=== PATIENT | female | born 1950 | race Caucasian/White ===

== ENCOUNTER 2017-11-22 17:13 | Inpatient (IN) | payer OTHER ==
[~2017-11-22] VITALS: Ht 152.4 cm; Wt 45.4 kg
--- NOTE | ~2017-11-22 | HC ---
[facility] [place] [address] CONSULTATION Name: BIPIN RICCI Room #: 448-P ADM IN M.R.#: [id number] Admission: 11/22/17 Attend Phys: Dixon Reardon MD Discharge: Date of : 51 Report #: [id number] THIS REPORT FOR: //name// CC: Katerina Reardon DATE OF SERVICE: 11/25/2017 HISTORY OF PRESENT ILLNESS: The patient is a 67-year-old white female admitted with increased shortness of breath, noted to have acute on chronic respiratory failure, hypertension, paroxysmal atrial fibrillation, COPD exacerbation. She has accelerated hypertension. She has elevated BNP. She is being seen in rehabilitation medicine consultation. She has had a significant functional decline in her premorbid status. PAST MEDICAL HISTORY: Includes seizures, bowel obstruction, CVA, cholecystectomy, colon resection, ulcers, appendectomy, hepatitis C, hypertension, COPD, endometrial CA, biliary stents. ALLERGIES: DILANTIN WITH RED WELTS, ASPIRIN AND CODEINE. HABITS: Tobacco. Current every day smoker, 1 pack per day for 50 years. No history of alcohol abuse. SOCIAL HISTORY: Lives in a third floor apartment without an elevator, approximately 27 steps in with her male significant other. He works during the day at a local [employer] and she is thus at home by herself during the day. She did not utilize gait aids and was not on O2 premorbidly. REVIEW OF SYSTEMS: Did not offer any current complaints of chest pain, shortness of breath, abdominal discomfort. She was diagnosed with lice per chart notes and has a head covering in place. Denied any focal extremity pain complaints per se. PHYSICAL EXAMINATION: GENERAL: Small statured, thin 67-year-old white female in no obvious distress. She is pleasant. VITAL SIGNS: Her temperature is 98, pulse 75, respirations 20, blood pressure 171/90. Oriented. HEENT: Appeared to be benign. She does have the cap in place as noted above. Facies are symmetric. NEUROLOGIC: Functional range of motion of both upper extremities with strength grade 4-/5. DTRs are trace to 1. Lower extremities, no focal calf swelling, functional range of motion with strength graded at 4-/5. No distal lower extremity edema. She was min assist with sit to stand and did ambulate 60 feet min assist without an assistive device on 2 liters. She does need rest breaks. [facility] [address] [place] [address] CONSULTATION Name: BIPIN RICCI JEFF Room #: 448-P [facility] IN ..#: [id number] Admission: 11/22/17 Attend Phys: Dixon Reardon MD Discharge: Date of : 51 Report #: [id number] ASSESSMENT: A 67-year-old white female with the following problem list: 1. Gngva-gl-wtitard respiratory failure. 2. Chronic obstructive pulmonary disease exacerbation. 3. Methicillin-susceptible Staphylococcus aureus and strep pneumo per sputum culture. 4. Accelerated hypertension. 5. Elevated BNP. 6. Head lice was treated. PLAN: We are assessing her regarding an acute in-hospital inpatient rehabilitation stay. We will be glad to follow along with you regarding her rehab therapy needs. <ELECTRONICALLY SIGNED> By: Bradly Garcia MD 11/27/17 1306 1421 0009 Bradly Garcia MD /PMT
--- NOTE | ~2017-11-22 | 2DMMODE ---
[facility] [address] [place] [address] 2 D/M-MODE ECHOCARDIOGRAM Name: RADHAMESBIPIN BLOOMSBURY Room #: 448-P ADM IN M.R.#: [id number] Admission: 11/22/17 Attend Phys: Dixon Reardon Discharge: Date of : 52 Date of Service: 11/23/17 1054 Report #: [id number] THIS REPORT FOR: //name// APPROVED REPORT Study performed: 11/23/2017 10:13:22 EXAM: Comprehensive 2D, Doppler, and color-flow Echocardiogram Patient Location: Bedside Room #: [facility] Status: routine BSA: 1.39 HR: 103 bpm BP: 159/69 mmHg Other Information Study Quality: Good Indications COPD Dyspnea Hypertension/HDD 2D Dimensions RVDd: 34.48 mm LVEF(%): 55.12 (>50%) IVSd: 9.02 (7-11mm) LVOT Diam: 21.41 (18-24mm) LVDd: 48.98 mm PWd: 9.83 (7-11mm) Ascending Ao: 24.22 (22-36mm) LVDs: 34.91 (25-40mm) Aortic Root: 29.38 mm IVC: 21.00 mm Yeung's LVEF: 55.12 % Volumes Left Atrial Volume (Systole) Single Plane 4CH: 36.89 mL Single Plane 2CH: 58.68 mL LA ESV Index: 38.00 mL/m2 Pulmonary Valve PV Peak Willie.: 1.19 m/s PV Peak Gr.: 5.68 mmHg Tricuspid Valve TR Peak Willie.: 2.71 m/s TR Peak Gr.: 29.31 mmHg PA Pressure: 44.[address] [facility] [address] [place] [address] 2 D/M-MODE ECHOCARDIOGRAM Name: BIPIN RICCI [place]LOOM[place]URY Room #: 448-P ADM IN M.R.#: [id number] Admission: 11/22/17 Attend Phys: Dixon Reardon Discharge: Date of : 52 Date of Service: 11/23/17 1054 Report #: [id number] Left Ventricle The left ventricle is normal size. There is normal left ventricular wall thickness. The left ventricular systolic function is normal. The left ventricular ejection fraction is within the normal range. LVEF is 50-55%. Grade I - abnormal relaxation pattern. Right Ventricle The right ventricle is normal size. The right ventricular systolic function is normal. Atria Left atrium is dilated. The right atrium size is normal. Aortic Valve Aortic valve is calcified, trileaflet. No aortic regurgitation is present. There is no aortic valvular stenosis. Mitral Valve The mitral valve is normal in structure. Trace to mild mitral regurgitation. No evidence of mitral valve stenosis. Tricuspid Valve The tricuspid valve is normal in structure. There is mild tricuspid regurgitation. Estimated PAP 40 mmHg. There is moderate pulmonary hypertension. Pulmonic Valve The pulmonary valve is normal in structure. There is no pulmonic valvular regurgitation. Great Vessels The aortic root is normal in size. The inferior vena cava is dilated with no inspiratory collapse. Pericardium There is no pericardial effusion. <Conclusion> The left ventricular systolic function is normal. LVEF is 50-55%. Grade I diastolic dysfunction Aortic valve is calcified, trileaflet. No aortic regurgitation, no stenosis The mitral valve is normal in structure. Trace to mild mitral regurgitation. There is mild tricuspid regurgitation. Estimated pulmonary artery [facility] [address] [place] [address] 2 D/M-MODE ECHOCARDIOGRAM Name: BIPIN RICCI JEFF Room #: 448-P [facility] IN .R.#: [id number] Admission: 11/22/17 Attend Phys: Dixon Reardon Discharge: Date of : 52 Date of Service: 11/23/17 1054 Report #: [id number] pressure of 40 mmHg. There is no pericardial effusion. <ELECTRONICALLY SIGNED> By: Armando Falcon MD, [facility] 11/23/17 1054 1054 1054 Armando Falcon MD, FACC /INF
--- NOTE | ~2017-11-22 | EKG ---
[address] [address] ELECTROCARDIOGRAM REPORT Name: BIPIN RICCI Room #: 448-P ADM IN M.R.#: [id number] Admission: 11/22/17 Attend Phys: Reginald Segura MD Discharge: Date of : 51 Report #: [id number] THIS REPORT FOR: //name// [facility] Test Date: 2017-11-22 Test Time: 17:38:52 Pat Name: BIPIN RICCI Department: Room: [facility] Gender: F Patient Coordinator: ADRIEL : 1950 Requested By: Dara Viveros Order Number: [id number] MD: Torsten Carlos Measurements Intervals [place] Rate: 114 P: 38 OK: 109 QRS: 1 QRSD: 77 T: 43 QT: 348 QTc: 480 Interpretive Statements Sinus tachycardia Ventricular premature complex Borderline repolarization abnormality Compared to ECG 07/21/2012 21:53:56 Ventricular premature complex(es) now present Sinus rhythm no longer present Electronically Signed On 11-23-2017 8:08:19 SEAPORT PLANNING MANAGER by Torsten Carlos [email or web address] <ELECTRONICALLY SIGNED> By: Torsten Carlos MD 11/23/17 0808 1738 1738 Torsten Carlos MD /EPI
[~2017-11-22 17:13] MED LIST: ADVAIR 250-501 EACH IH; ALBUTEROL INHAL17 GM IH; AMBIEN 10 MG TA10 MG PO; ASPIR 8181 MG; ATIVAN1 MG PO; BENAZEPRIL HCL20 MG; BENAZEPRIL HCL20 MG PO; CIPROFLOXACIN500 M1 PO; CLOPIDOGREL PO; CLOPIDOGREL75 MG; COLACE100 MG PO; DARVON65 MG PO; DIPHENHYDRAMINE25 M3 PO; DOXYCYCLINE 10100 MG PO; FLEET ENEMA118 ML RC; GABAPENTIN600 MG PO; HYDROCHLOROTH12.5 MG PO; HYDROXYZINE HCL25 M1; LEXAPRO20 MG PO; LOTENSIN20 MG PO; LYRICA 50 MG50 MG; LYRICA 50 MG50 MG PO; MEDROL DOSPAK21 TAB PO; MIRALAX255 GM PO; NAPROSYN500 MG PO; NORCO 5-325 TA1 EACH PO; OMEPRAZOLE 20 M20 M1; OMEPRAZOLE20 M2 PO; OMEPRAZOLE20 MG PO; ORPHENADRINE C100 M2 PO; PHENERGAN 25 MG25 M1; PHENERGAN 25 MG25 M1 PO; PHENERGAN25 MG RE; PLAVIX 75 MG TA75 MG PO; PRILOSEC 20 MG20 MG PO; REGLAN 10 MG TA10 MG PO; TAMSULOSIN HCL0.4 M1 PO; TEGRETOL XR200 MG PO; TESSALON PERLE100 MG PO; TRAMADOL 50 MG50 MG PO; TYLENOL EXTRA500 MG PO; ULTRAM 50MG TAB50 MG PO; VITAMIN D 5050000 I1; ZOFRAN ODT4 MG PO; ZOLOFT100 MG PO; ZONEGRAN100 MG; ZONEGRAN100 MG PO
[2017-11-22 17:16] VITALS: BP 204/120
[2017-11-22 17:58] LABS: BE(vivo) 0.1 mmol/L (-2 to +3); HCO3 24.6 mmol/L (22.0-26.0); PCO2 39.4 mmHg (35.0-45.0); PO2 62.1 mmHg (80.0-100.0); pH 7.413 (7.360-7.450); sO2 92.1 % (92.0-98.0)
[2017-11-22 18:17] LABS: ABSOLUTE NEUTROPHILS 9.3 thou/uL (1.4-8.2); BASOPHILS 0.3 % (0.0-2.0); HEMATOCRIT 36.1 % (37.0-47.0); HEMOGLOBIN 12.5 gm/dL (12.0-15.0); LYMPHOCYTES 6.5 % (24.0-44.0); MCH 34.1 pg (26.0-34.0); MCHC 34.5 g/dL (28.0-37.0); MCV 98.9 fL (80.0-100.0); MONOCYTES 8.3 % (1.0-8.0); PLATELET COUNT 229 thou/uL (150-400); POLYS 84.9 % (36.0-66.0); RBC 3.65 mil/uL (4.20-5.00); RDW 13.6 % (10.5-14.5); WBC 10.9 thou/uL (4.0-11.0)
[2017-11-22 18:26] LABS: CALCIUM 9.4 mg/dL (8.5-10.1); CREATININE 1.3 mg/dL (0.6-1.0); POTASSIUM 3.1 mmol/L (3.5-5.1)
[2017-11-22 18:34] LABS: ALBUMIN 3.9 g/dL (3.4-5.0); TOTAL BILIRUBIN 0.3 mg/dL (<0.1-1.0); TROPONIN-I 0.05 ng/mL (<0.06)
[2017-11-22 22:57] VITALS: BP 194/103
[2017-11-22 23:11] VITALS: BP 194/103
[2017-11-23 00:06] VITALS: BP 149/99
[2017-11-23 04:11] VITALS: BP 150/82
[2017-11-23 05:25] LABS: CALCIUM 8.1 mg/dL (8.5-10.1); POTASSIUM 3.3 mmol/L (3.5-5.1)
[2017-11-23 08:10] VITALS: BP 159/69
[2017-11-23 16:05] VITALS: BP 174/85
[2017-11-23 20:37] VITALS: BP 153/86
[2017-11-24 04:50] VITALS: BP 165/86
[2017-11-24 06:00] LABS: CALCIUM 8.7 mg/dL (8.5-10.1); CREATININE 0.9 mg/dL (0.6-1.0); POTASSIUM 4.4 mmol/L (3.5-5.1)
[2017-11-24 07:45] LABS: ABSOLUTE NEUTROPHILS 11.5 thou/uL (1.4-8.2); BASOPHILS 0.1 % (0.0-2.0); HEMATOCRIT 29.9 % (37.0-47.0); LYMPHOCYTES 3.4 % (24.0-44.0); MCH 34.4 pg (26.0-34.0); MCHC 34.2 g/dL (28.0-37.0); MCV 100.5 fL (80.0-100.0); PLATELET COUNT 170 thou/uL (150-400); POLYS 92.5 % (36.0-66.0); RBC 2.97 mil/uL (4.20-5.00); RDW 14.2 % (10.5-14.5); WBC 12.4 thou/uL (4.0-11.0)
[2017-11-24 07:47] LABS: HEMOGLOBIN 10.2 gm/dL (12.0-15.0)
[2017-11-24 09:20] VITALS: BP 166/85
[2017-11-24 19:33] VITALS: BP 180/91
[2017-11-24 23:52] VITALS: BP 166/83
[2017-11-25 03:43] VITALS: BP 187/90
[2017-11-25 08:50] VITALS: BP 171/90
[2017-11-25 19:32] VITALS: BP 187/87
[2017-11-26 03:10] VITALS: BP 191/98
[2017-11-26 06:17] LABS: HEMATOCRIT 33.1 % (37.0-47.0); HEMOGLOBIN 11.2 gm/dL (12.0-15.0); MCH 33.6 pg (26.0-34.0); MCHC 33.7 g/dL (28.0-37.0); MCV 99.5 fL (80.0-100.0); PLATELET COUNT 196 thou/uL (150-400); RBC 3.32 mil/uL (4.20-5.00); RDW 13.7 % (10.5-14.5); WBC 12.1 thou/uL (4.0-11.0)
[2017-11-26 06:28] LABS: CALCIUM 8.7 mg/dL (8.5-10.1); CREATININE 0.8 mg/dL (0.6-1.0); POTASSIUM 3.2 mmol/L (3.5-5.1)
[2017-11-26 07:49] VITALS: BP 181/79
[2017-11-26 07:49] LABS: ABSOLUTE NEUTROPHILS 10.5 thou/uL (1.4-8.2)
[2017-11-26 17:10] VITALS: BP 166/96
[2017-11-26 19:43] VITALS: BP 182/79
[2017-11-26 22:12] LABS: ADENOVIRUS Negative (Negative); INFLUENZA A Negative (Negative); INFLUENZA B Negative (Negative); METAPNEUMOVIRUS Positive (Negative); PARAINFLUENZA 1 Negative (Negative); PARAINFLUENZA 2 Negative (Negative); PARAINFLUENZA 3 Negative (Negative); RHINOVIRUS Negative (Negative); RSV A Negative (Negative); RSV B Negative (Negative)
[2017-11-27 02:49] VITALS: BP 184/111
[2017-11-27 06:46] LABS: HEMATOCRIT 30.9 % (37.0-47.0); HEMOGLOBIN 10.4 gm/dL (12.0-15.0); MCH 33.8 pg (26.0-34.0); MCHC 33.7 g/dL (28.0-37.0); MCV 100.2 fL (80.0-100.0); RBC 3.09 mil/uL (4.20-5.00); RDW 13.6 % (10.5-14.5); WBC 10.7 thou/uL (4.0-11.0)
[2017-11-27 06:59] LABS: CALCIUM 8.3 mg/dL (8.5-10.1); CREATININE 0.9 mg/dL (0.6-1.0); MAGNESIUM 1.9 mg/dL (1.8-2.4); POTASSIUM 3.4 mmol/L (3.5-5.1)
[2017-11-27 08:00] VITALS: BP 178/88
[2017-11-27 11:25] VITALS: BP 159/85
[2017-11-27] MEDS ORDERED: CEFUROXIME500 MG PO (12:36)
[2017-11-27] MEDS ORDERED: DUONEB 2.5-0.5 M3 ML INH (12:36)
[2017-11-27] MEDS ORDERED: LISINOPRIL10 MG PO (12:36)
[2017-11-27] MEDS ORDERED: ENOXAPARIN40 MG/0.1 SUBQ (12:36)
[2017-11-27] MEDS ORDERED: PREDNISONE 10 M10 MG PO (12:36)
[2017-11-27] MEDS ORDERED: MUCINEX600 MG PO (12:36)
[2017-11-27] MEDS ORDERED: AMLODIPINE BESY10 MG PO (12:36)
[2017-11-27] MEDS ORDERED: HYDROCODON-ACE1 EAC7 PO (12:36)
[2017-11-27] MEDS ORDERED: LEVAQUIN 500 M500 M2 PO (12:40)
[2017-11-27 16:00] VITALS: BP 150/78
[2017-11-27 19:09] VITALS: BP 153/79
[2017-12-01 01:08] LABS: ADENOVIRUS Negative (Negative); INFLUENZA A Negative (Negative); INFLUENZA B Negative (Negative); METAPNEUMOVIRUS Negative (Negative); PARAINFLUENZA 1 Negative (Negative); PARAINFLUENZA 2 Negative (Negative); PARAINFLUENZA 3 Negative (Negative); RHINOVIRUS Negative (Negative); RSV A Negative (Negative); RSV B Negative (Negative)
== END 2017-11-27 21:30 | DRG 871 ==
LOC: ER 17:13 → EROBS 19:25 → 4S 19:25
PROVIDERS: Internal Medicine; Internal Medicine Endocrinology, Diabetes & Metabolism; Internal Medicine Pulmonary Disease; Nurse Practitioner Acute Care; Physician Assistant
DX: A41.9 Sepsis, unspecified organism (principal); J96.20 Acute and chronic respiratory failure, unspecified whether with hypoxia or hypercapnia; E43 Unspecified severe protein-calorie malnutrition; J44.0 Chronic obstructive pulmonary disease with (acute) lower respiratory infection; Z68.1 Body mass index [BMI] 19.9 or less, adult; J44.1 Chronic obstructive pulmonary disease with (acute) exacerbation; J98.11 Atelectasis; I10 Essential (primary) hypertension; F17.210 Nicotine dependence, cigarettes, uncomplicated; E86.0 Dehydration; I27.20 Pulmonary hypertension, unspecified; I48.0 Paroxysmal atrial fibrillation; E87.6 Hypokalemia; B85.0 Pediculosis due to Pediculus humanus capitis; Z71.6 Tobacco abuse counseling; Z23 Encounter for immunization; Z88.5 Allergy status to narcotic agent; Z88.8 Allergy status to other drugs, medicaments and biological substances; Z88.6 Allergy status to analgesic agent; Z90.49 Acquired absence of other specified parts of digestive tract; Z86.73 Personal history of transient ischemic attack (TIA), and cerebral infarction without residual deficits; Z79.899 Other long term (current) drug therapy; Z85.89 Personal history of malignant neoplasm of other organs and systems; Z82.5 Family history of asthma and other chronic lower respiratory diseases
CPT/HCPCS: 10100

== ENCOUNTER 2017-11-26 08:20 | Inpatient (IN) | payer OTHER ==
[~2017-11-26] VITALS: Ht 152.4 cm; Wt 41.3 kg
--- NOTE | ~2017-11-26 | PLAN ---
[facility] [place] [address] REHAB UNIT PLAN OF CARE Name: BIPIN RICCI Room #: 501-A ADM IN M.R.#: [id number] Admission: 11/27/17 Attend Phys: Bradly Garcia MD Discharge: Date of : 51 Report #: [id number] THIS REPORT FOR: //name// CC: Katerina Garcia DATE OF SERVICE: 11/30/2017 PROGRESS NOTE/OVERALL PLAN OF CARE SUBJECTIVE: The patient was seen back today in followup. She is in no distress. Last recorded temperature 36.8, pulse 87, respirations 19, blood pressure 153/87. Transfers are min assist with gait min assist 250 feet without a device. In occupational therapy, lower body dressing is supervision. She is on 2 liters nasal cannula. ASSESSMENT: 1. Acute on chronic respiratory failure. 2. Chronic obstructive pulmonary disease exacerbation. 3. Methicillin-susceptible Staphylococcus aureus and strep pneumo per sputum culture. 4. Accelerated hypertension. 5. Elevated BNP. 6. Head lice which was treated. 7. Continued tobacco usage. PLAN: The overall plan of care is based on the preadmission screen, post-admission physician evaluation and information garnered from therapy assessments. 1. Estimated length of stay is probably at least 10-14 days pending progress. 2. Medical prognosis is reasonably good. 3. Anticipated interventions includes the interdisciplinary acute inpatient rehabilitation program with PT and OT, rehab nursing assisting regarding medication management, skin care prophylaxis, bowel and bladder issues and nursing education. We will have the rest of the interdisciplinary rehab team involved as well as the apartment leasing consultant physicians. 4. Anticipated functional outcomes would be for the patient to hopefully become modified independent at least at the walker level as well as to ideally wean off her oxygen, so we can get her back to the home setting. 5. Discharge destination would be back home where she lives in a third floor apartment without steps. She will need to be able to go up and down a lot of steps prior to discharge. [address] [address] REHAB UNIT PLAN OF CARE Name: BIPIN RICCI [place] Room #: 501-A [facility] IN ..#: [id number] Admission: 11/27/17 Attend Phys: Bradly Garcia MD Discharge: Date of : 51 Report #: [id number] 6. Expected therapy by discipline includes PT, OT 1-1/2 hours per day each five days a week throughout the duration of the acute inpatient rehabilitation stay. <ELECTRONICALLY SIGNED> By: Bradly Garcia MD 12/01/17 1109 0837 1617 Bradly Garcia MD /BRANDY
--- NOTE | ~2017-11-26 | HC ---
[facility] [address] [address] [address] CONSULTATION Name: BIPIN RICCI Room #: 501-A [facility] IN M.R.#: [id number] Admission: 11/27/17 Attend Phys: Bradly Garcia MD Discharge: Date of : 51 Report #: [id number] THIS REPORT FOR: //name// CC: Katerina Garcia DATE OF SERVICE: 11/29/2017 ATTENDING PHYSICIAN: Bradly Garcia MD. BUS AND TROLLEY DISPATCHER: Stew Boyd, PhD. CLINICAL PRESENTATION: The patient is a 67-year-old female admitted to [facility] rehabilitation unit for a comprehensive inpatient rehabilitation program to improve functional mobility and activities of daily living and self-care secondary to an acute on chronic respiratory failure. Her diagnoses include COPD, methicillin-resistant Staphylococcus, accelerated hypertension, elevated BNP, head lice which has been treated and continued tobacco use. The patient is reported to have been admitted with shortness of breath from her apartment. She describes having had a significant functional decline. It should be noted that the patient reported during my interview that she did not know that she had COPD or that had never been diagnosed. She lacks awareness of current medical condition. Prior to this most recent admission, she was living with her boyfriend of 25 years. The patient has 3 children. One child lives within the [place] area. 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 She indicates that prior to this recent hospitalization, she was independent with all instrumental activities of daily living. TECHNIQUES UTILIZED: Clinical interview, review of medical records, staff consultation and behavioral observation, mini mental status exam 2 standard version, calibrated ideational fluency assessment (letter and category fluency) and clock drawing. EXAMINATION FINDINGS: The patient was alert and cooperative with the assessment. She accurately described events surrounding her admission. There is no evidence of aphasia. Her thoughts are logical and goal oriented. She does not report auditory or visual hallucinations. The patient reports symptoms to include subjective anxiety. She indicates a longstanding difficulty with sleep and energy level is more fatigue. Her anxiety is higher in regard to fears of suffocation. She does not report difficulties with memory, word finding or appetite; although, the patient does look thin and underweight. [facility] [address] [place] [address] CONSULTATION Name: BIPIN RICCI JEFF Room #: 501-A [facility] IN .R.#: [id number] Admission: 11/27/17 Attend Phys: Bradly Garcia MD Discharge: Date of : 51 Report #: [id number] Her performance on the MMSE 2 brief version is within normal limits with a raw score of 14 of 16. She was 3 of 3 for initial registration, 4 of 5 for orientation to time, 5 of [address] and 2 of 3 for immediate recall of 3 items after a brief time delay and distraction. Her performance on the MMSE 2 standard version was within normal limits with a raw score of 28 of 30. Her performance in letter fluency was average and within normal limits with a raw score of 29 and a T score of 52. Category fluency was in the mild to moderate range of impairment with a T score of 33, which is at the fourth percentile. Overall, verbal fluency was in the average range with a raw score of 58 and a T score of 45, which is at the 31st percentile. Clock drawing was slightly impaired with difficulty in conceptualization of hand placement. The patient is alert and oriented. Subtle deficits are suggested in aspects of verbal fluency and in her performance on clock drawing. This type of presentation suggests a mild cognitive disorder with difficulty primarily in high level executive functioning. DIAGNOSTIC IMPRESSION: Mild neurocognitive disorder, unspecified, without behavior disorder. Adjustment disorder with anxious mood. RECOMMENDATIONS: Continued use of relaxation techniques to assist in the management of anxiety. Reframing her hospitalization as a meaningful method to manage self-destructive behavior i.e., smoking. She does report a desire to discontinue tobacco at this time. Verbal praise and complements about participation in therapies and improving endurance will also be helpful. Thank you very much for allowing me to provide the consultation on this patient. <ELECTRONICALLY SIGNED> By: Stew Boyd, PhD 11/30/17 1855 1508 37 Stew Boyd, PhD /nt
--- NOTE | ~2017-11-26 | H ---
[facility] [place] [address] HISTORY AND PHYSICAL Name: BIPIN RICCI Room #: 501-A ADM IN M.R.#: [id number] Admission: 11/27/17 Attend Phys: Bradly Garcia MD Discharge: Date of : 51 Report #: [id number] THIS REPORT FOR: //name// CC: Katerina Garcia DATE OF SERVICE: 11/28/2017 HISTORY AND PHYSICAL/POST ADMISSION PHYSICIAN EVALUATION HISTORY OF PRESENT ILLNESS: The patient is a 67-year-old white female who was originally admitted to [facility] with increased shortness of breath, was noted to have acute on chronic respiratory failure, hypertension, paroxysmal atrial fibrillation, and COPD exacerbation. She was noted to have accelerated hypertension. She had an elevated BNP. She was noted to have had a significant functional decline from her premorbid status. She was admitted for acute in-hospital inpatient rehabilitation. PAST MEDICAL HISTORY: Seizures, bowel obstruction, CVA, cholecystectomy, colon resection, ulcers, appendectomy, hepatitis C, hypertension, COPD, endometrial CA, and biliary stents. ALLERGIES: DILANTIN WITH RED WELTS, ASPIRIN, AND CODEINE. HABITS: Tobacco. Current every day smoker, 1 pack per day for 50 years. No history of alcohol abuse. SOCIAL HISTORY: Lives in a third floor apartment without an elevator approximately 27 steps in with her male significant other. He works during the day at a local [employer] and she thus at home by herself during the day. She did not utilize gait aids and was not on O2 premorbidly. REVIEW OF SYSTEMS: No current complaints of chest pain, shortness of breath, or abdominal discomfort. She was diagnosed with lice per chart notes and had a head covering in place, when I saw her prior to admission. She denied any focal extremity pain complaints. PHYSICAL EXAMINATION: GENERAL: The patient was seen earlier, was somewhat groggy, but pleasant, small statured, thin 67-year-old white female in no obvious distress. VITAL SIGNS: Temperature 36.5, pulse 103, respirations 18, blood pressure 166/96. HEENT: Appeared to be benign. CHEST: Sounded clear to auscultation. CARDIOVASCULAR: Regular rate and rhythm. ABDOMEN: Bowel sounds positive, nontender. [address] [address] HISTORY AND PHYSICAL Name: BIPIN RICCI [place] Room #: [address] [place] [address] IN ..#: [id number] Admission: 11/27/17 Attend Phys: Bradly Garcia MD Discharge: Date of : 51 Report #: [id number] NEUROLOGIC: She is on nasal prong O2, 2 liters. GENITOURINARY AND RECTAL: Deferred. She does get short of breath with fairly limited activities. EXTREMITIES: She has functional range of motion of both upper extremities with strength grade 4-/5. DTRs are trace to 1. Lower extremities, no focal calf swelling, functional range of motion with strength grade 4-/5. No distal lower extremity edema. She was min assist with sit to stand and has been ambulating a short distance with min assist without an assisted device continuing on her oxygen. ASSESSMENT: A 67-year-old white female with the following problems: 1. Acute on chronic respiratory failure. 2. Chronic obstructive pulmonary disease exacerbation. 3. Methicillin-susceptible Staphylococcus aureus and strep pneumo per sputum culture. 4. Accelerated hypertension. 5. Elevated BNP. 6. Head lice, which was treated. 7. Continued tobacco usage. PLAN: The patient is admitted for acute in-hospital inpatient rehabilitation. From a postadmission physician evaluation perspective, there are no relevant changes since the preadmission screening. Please see the above review of prior and current medical and functional conditions and comorbidities. Please see the patient's previous and current functional status. As far as risk of complications, the patient has multiple medical comorbidities as noted above. Initial plan of care involves the interdisciplinary acute inpatient rehabilitation program with the goal of maximizing the patient's functional independence, so that she can hopefully return back to her prior living situation. Measurable functional goals would be for her to become modified independent with transfers, mobility and ADLs, so that she can return back to the home setting. Prognosis is reasonably good with estimated length of stay probably at least 10-14 days pending progress. Potential barriers would include her multiple medical comorbidities and decreased functional status. The patient meets diagnostic criteria for an acute in-hospital inpatient rehabilitation stay. She meets medical necessity criteria and we will have the urban design consultant physicians continue to follow while she is on the rehab cowan. She does have the tolerance for therapies and has appropriate discharge goals back to the home setting. <ELECTRONICALLY SIGNED> By: Bradly Garcia MD 12/01/17 1109 0711 0734 Bradly Garcia MD /[facility]
[2017-11-27] MEDS ORDERED: HYDROCODON-ACE1 EAC7 PO (12:36)
[2017-11-27] MEDS ORDERED: AMLODIPINE BESY10 MG PO (12:36)
[2017-11-27] MEDS ORDERED: PREDNISONE 10 M10 MG PO (12:36)
[2017-11-27] MEDS ORDERED: CEFUROXIME500 MG PO (12:36)
[2017-11-27] MEDS ORDERED: MUCINEX600 MG PO (12:36)
[2017-11-27] MEDS ORDERED: DUONEB 2.5-0.5 M3 ML INH (12:36)
[2017-11-27] MEDS ORDERED: ENOXAPARIN40 MG/0.1 SUBQ (12:36)
[2017-11-27] MEDS ORDERED: LISINOPRIL10 MG PO (12:36)
[2017-11-27] MEDS ORDERED: LEVAQUIN 500 M500 M2 PO (12:40)
[2017-11-27 21:43] VITALS: BP 166/96
[2017-11-28 05:36] VITALS: BP 164/81
[2017-11-28 06:26] LABS: HEMATOCRIT 30.8 % (37.0-47.0); HEMOGLOBIN 10.2 gm/dL (12.0-15.0); MCH 33.2 pg (26.0-34.0); MCHC 33.2 g/dL (28.0-37.0); RBC 3.08 mil/uL (4.20-5.00); RDW 13.7 % (10.5-14.5); WBC 11.8 thou/uL (4.0-11.0)
[2017-11-28 06:31] LABS: CALCIUM 8.3 mg/dL (8.5-10.1); CREATININE 1.2 mg/dL (0.6-1.0); POTASSIUM 3.8 mmol/L (3.5-5.1)
[2017-11-28 06:56] VITALS: BP 160/96
[2017-11-28 21:01] VITALS: BP 148/95
[2017-11-29 05:17] LABS: HEMATOCRIT 29.3 % (37.0-47.0); MCH 34.1 pg (26.0-34.0); MCHC 34.3 g/dL (28.0-37.0); MCV 99.3 fL (80.0-100.0); RBC 2.95 mil/uL (4.20-5.00); RDW 13.5 % (10.5-14.5); WBC 10.1 thou/uL (4.0-11.0)
[2017-11-29 05:36] LABS: ALBUMIN 2.5 g/dL (3.4-5.0); POTASSIUM 3.6 mmol/L (3.5-5.1); TOTAL BILIRUBIN 0.2 mg/dL (<0.1-1.0); TOTAL PROTEIN 5.3 g/dL (6.4-8.2)
[2017-11-29 08:00] VITALS: BP 149/78
[2017-11-29 19:36] VITALS: BP 153/87
[2017-11-30 06:54] LABS: ALBUMIN 2.6 g/dL (3.4-5.0); CALCIUM 8.1 mg/dL (8.5-10.1); CREATININE 0.9 mg/dL (0.6-1.0); POTASSIUM 3.8 mmol/L (3.5-5.1); TOTAL BILIRUBIN 0.2 mg/dL (<0.1-1.0); TOTAL PROTEIN 5.7 g/dL (6.4-8.2)
[2017-11-30 08:00] VITALS: BP 177/90
[2017-11-30 20:18] VITALS: BP 144/78
[2017-12-01 06:47] VITALS: BP 171/95
[2017-12-01 19:54] VITALS: BP 127/72
[2017-12-02 06:36] VITALS: BP 171/84
[2017-12-02 20:06] VITALS: BP 121/49
[2017-12-03 08:30] VITALS: BP 151/82
[2017-12-03] MEDS ORDERED: VENTOLIN HFA 1818 GM INH (12:20)
[2017-12-03] MEDS ORDERED: LISINOPRIL10 MG PO (12:20)
[2017-12-03] MEDS ORDERED: ZANAFLEX2 MG PO (12:20)
[2017-12-03] MEDS ORDERED: AMLODIPINE BESY10 MG PO (12:20)
[2017-12-03] MEDS ORDERED: PEPCID20 MG PO (12:20)
[2017-12-03] MEDS ORDERED: MUCINEX600 MG PO (12:20)
[2017-12-03] MEDS ORDERED: PREDNISONE 10 M10 MG PO (12:20)
[2017-12-03 20:06] VITALS: BP 129/61
[2017-12-04 07:15] VITALS: BP 134/61
[2017-12-04 09:55] VITALS: BP 134/61
== END 2017-12-04 15:30 | disposition home health service (06) | DRG 189 ==
LOC: ENTRNSPT 12-04 15:14 → EDTRNSPTSTS 12-04 15:16
PROVIDERS: Hospitalist; Physical Medicine & Rehabilitation
DX: J96.20 Acute and chronic respiratory failure, unspecified whether with hypoxia or hypercapnia (principal); J44.1 Chronic obstructive pulmonary disease with (acute) exacerbation; E44.0 Moderate protein-calorie malnutrition; Z68.1 Body mass index [BMI] 19.9 or less, adult; I10 Essential (primary) hypertension; I48.0 Paroxysmal atrial fibrillation; F17.210 Nicotine dependence, cigarettes, uncomplicated; B85.0 Pediculosis due to Pediculus humanus capitis; F43.22 Adjustment disorder with anxiety; G31.84 Mild cognitive impairment of uncertain or unknown etiology; I48.91 Unspecified atrial fibrillation; D64.9 Anemia, unspecified; R53.81 Other malaise; D72.829 Elevated white blood cell count, unspecified; Z90.49 Acquired absence of other specified parts of digestive tract; Z86.73 Personal history of transient ischemic attack (TIA), and cerebral infarction without residual deficits; Z86.19 Personal history of other infectious and parasitic diseases; Z85.89 Personal history of malignant neoplasm of other organs and systems; Z88.6 Allergy status to analgesic agent; Z88.8 Allergy status to other drugs, medicaments and biological substances; Z79.899 Other long term (current) drug therapy
CPT/HCPCS: 10112

== ENCOUNTER 2017-12-17 14:13 | Inpatient (IN) | payer OTHER ==
[~2017-12-17] VITALS: Ht 152.4 cm; Wt 40.5 kg
--- NOTE | ~2017-12-17 | D ---
[facility] [place] [address] DISCHARGE SUMMARY Name: BIPIN RICCI Room #: 412-P [facility] IN M.R.#: [id number] Admission: 12/17/17 Attend Phys: Gurinder Bolaños Discharge: 12/30/17 Date of : 51 Report #: [id number] THIS REPORT FOR: //name// CC: Katerina Bolaños DATE OF SERVICE: 12/30/2017 HISTORY OF PRESENT ILLNESS: The patient is a 67-year-old female who came to the hospital with abdominal pain. Please refer to admission H and P for details. In brief, the patient had abdominal pain a few days before she came in. HOSPITALIZATION COURSE: The patient was hospitalized for severe colitis. Later, stool study was consistent with Clostridium difficile. Abdominal CT showed pancolitis. The patient was initially treated with Flagyl. However, given severity of the disease, the patient was started on oral vancomycin. Infectious disease specialist was consulted. Vancomycin dose was increased to 500 mg p.o. t.i.d. The patient's oral intake was significantly diminished. GI also saw the patient. The patient was managed conservatively. She has very slow improvement. Few days later, the patient's symptoms started to improve. White count started to decline from 25,000, with currently 12.9 thousand. Abdominal pain improved. CT of the abdomen was repeated, that showed improvement of the colitis. While the patient had diminished p.o. intake, she was treated with TPN. Later TPN was discontinued. Today, the patient's condition is stable. Her abdominal pain almost subsided. Her food intake is well established. She is seen and evaluated by physical therapy. Due to prolonged hospital stay and debility, transferring the patient to detention home is recommended for further rehab. DISCHARGE DIAGNOSES: 1. Severe Clostridium difficile colitis, involving entire colon. Clinically much better. Details as above. The patient will be continued on oral vancomycin 250 mg q.i.d. at least for 4 weeks, with close followup in infectious disease clinic in about 10 days. 2. Debility. 3. Moderate protein-calorie malnutrition. 4. Recent pneumonia, resolved. 5. Hypertension. 6. History of chronic obstructive pulmonary disease. 7. History of seizure, currently not on medications. 8. History of hepatitis C. [address] [address] DISCHARGE SUMMARY Name: BIPIN RICCI [place] Room #: 412-P [facility] IN M.R.#: [id number] Admission: 12/17/17 Attend Phys: Gurinder Bolaños Discharge: 12/30/17 Date of : 52 Report #: [id number] 9. History of endometrial cancer. DISCHARGE MEDICATIONS: Please refer to the medication reconciliation list. FOLLOWUP PLAN: 1. Follow up in infectious disease clinic in 10 days. 2. Follow up with the primary care physician in 1 week. DISPOSITION: The patient is transferred to the detention facility. I spent greater than 30 minutes to coordinate the patient's discharge from the hospital. <ELECTRONICALLY SIGNED> By: Dixon Reardon MD 12/31/17 1604 0930 0955 Dixon Reardon MD /nt
[~2017-12-17 14:13] MED LIST changes: +AMLODIPINE BESY10 MG PO; +CEFUROXIME500 MG PO; +DUONEB 2.5-0.5 M3 ML INH; +ENOXAPARIN40 MG/0.1 SUBQ; +HYDROCODON-ACE1 EAC7 PO; +LEVAQUIN 500 M500 M2 PO; +LISINOPRIL10 MG PO; +MUCINEX600 MG PO; +PEPCID20 MG PO; +PREDNISONE 10 M10 MG PO; +VENTOLIN HFA 1818 GM INH; +ZANAFLEX2 MG PO
[2017-12-17 14:18] VITALS: BP 120/60
[2017-12-17 14:44] LABS: URINE BILIRUBIN NEGATIVE (Negative); URINE BLOOD TRACE (Negative); URINE CLARITY CLEAR; URINE COLOR YELLOW; URINE GLUCOSE-RANDOM* NEGATIVE (Negative); URINE KETONES NEGATIVE (Negative); URINE LEUKOCYTES NEGATIVE (Negative); URINE NITRITE NEGATIVE (Negative); URINE PROTEIN (DIPSTICK) 1+ (Negative); URINE UROBILINOGEN 0.2 E.U./dl (0.2-1.0)
[2017-12-17 14:52] LABS: SQUAMOUS 0-3 Few /LPF (0-3); URINE RBC 0-2 Rare /HPF (0-2); URINE WBC 6-15 Few /HPF (0-5)
[2017-12-17 14:53] LABS: BACTERIA None Seen /HPF (None Seen); CRYSTALS None Seen /LPF (None Seen); HYALINE CASTS 0-3 Few /LPF (None Seen); MUCUS 0-3 Light strn/LPF (None Seen); WBC CLUMPS Few (None Seen)
[2017-12-17 15:16] LABS: HEMATOCRIT 30.2 % (37.0-47.0); HEMOGLOBIN 10.1 gm/dL (12.0-15.0); MCH 33.8 pg (26.0-34.0); MCHC 33.6 g/dL (28.0-37.0); MCV 100.7 fL (80.0-100.0); PLATELET COUNT 461 thou/uL (150-400); WBC 22.7 thou/uL (4.0-11.0)
[2017-12-17 15:32] LABS: CALCIUM 8.8 mg/dL (8.5-10.1); CREATININE 1.1 mg/dL (0.6-1.0); PROTIME 10.3 Seconds (9.3-11.4)
[2017-12-17 15:37] LABS: ALBUMIN 2.6 g/dL (3.4-5.0); TOTAL BILIRUBIN 0.1 mg/dL (<0.1-1.0); TOTAL PROTEIN 6.5 g/dL (6.4-8.2)
[2017-12-17 15:40] LABS: POTASSIUM 2.9 mmol/L (3.5-5.1)
[2017-12-17 15:46] LABS: ABSOLUTE NEUTROPHILS 19.5 thou/uL (1.4-8.2); ANISOCYTOSIS 2+
[2017-12-17 15:47] LABS: MACROCYTES 1+; POLYCHROMASIA OCCASIONAL
[2017-12-17 17:42] VITALS: BP 134/59
[2017-12-17 18:26] VITALS: BP 134/59
[2017-12-17 18:48] VITALS: BP 133/54
[2017-12-18] VITALS: BP 105/54
[2017-12-18 04:00] VITALS: BP 125/66
[2017-12-18 04:04] LABS: HEMATOCRIT 27.1 % (37.0-47.0); HEMOGLOBIN 8.9 gm/dL (12.0-15.0); MCHC 32.9 g/dL (28.0-37.0); MCV 100.5 fL (80.0-100.0); PLATELET COUNT 461 thou/uL (150-400); RDW 13.9 % (10.5-14.5); WBC 20.4 thou/uL (4.0-11.0)
[2017-12-18 04:23] LABS: CALCIUM 8.2 mg/dL (8.5-10.1); CREATININE 1.1 mg/dL (0.6-1.0); MAGNESIUM 1.9 mg/dL (1.8-2.4)
[2017-12-18 04:40] LABS: POTASSIUM 3.9 mmol/L (3.5-5.1)
[2017-12-18 06:04] LABS: ABSOLUTE NEUTROPHILS 19.4 thou/uL (1.4-8.2); MACROCYTES SLIGHT; METAMYELOCYTES 2 %
[2017-12-18 07:30] VITALS: BP 132/73
[2017-12-18 12:14] LABS: % SATURATION 10 % (20-39); IRON 23 ug/dL (50-170); TIBC 225 ug/dL (250-450)
[2017-12-18 15:41] VITALS: BP 141/71
[2017-12-18 19:21] VITALS: BP 149/71
[2017-12-19 04:12] VITALS: BP 126/60
[2017-12-19 04:39] LABS: HEMATOCRIT 26.7 % (37.0-47.0); HEMOGLOBIN 8.9 gm/dL (12.0-15.0); MCH 33.4 pg (26.0-34.0); MCHC 33.4 g/dL (28.0-37.0); MCV 99.8 fL (80.0-100.0); RBC 2.68 mil/uL (4.20-5.00); RDW 13.7 % (10.5-14.5); WBC 31.8 thou/uL (4.0-11.0)
[2017-12-19 05:00] LABS: CALCIUM 7.9 mg/dL (8.5-10.1); MAGNESIUM 1.6 mg/dL (1.8-2.4); POTASSIUM 3.7 mmol/L (3.5-5.1); TOTAL BILIRUBIN 0.1 mg/dL (<0.1-1.0); TOTAL PROTEIN 5.4 g/dL (6.4-8.2)
[2017-12-19 08:19] VITALS: BP 119/58
[2017-12-19 16:32] VITALS: BP 132/70
[2017-12-19 20:00] VITALS: BP 130/71
[2017-12-20 03:46] VITALS: BP 134/63
[2017-12-20 04:07] LABS: MCH 33.1 pg (26.0-34.0); MCHC 33.2 g/dL (28.0-37.0); MCV 99.9 fL (80.0-100.0); RBC 2.71 mil/uL (4.20-5.00); RDW 14.1 % (10.5-14.5); WBC 25.6 thou/uL (4.0-11.0)
[2017-12-20 04:14] LABS: ALBUMIN 1.6 g/dL (3.4-5.0); CALCIUM 7.7 mg/dL (8.5-10.1); CREATININE 0.8 mg/dL (0.6-1.0); MAGNESIUM 2.1 mg/dL (1.8-2.4); TOTAL BILIRUBIN 0.1 mg/dL (<0.1-1.0); TOTAL PROTEIN 4.7 g/dL (6.4-8.2)
[2017-12-20 04:22] LABS: POTASSIUM 2.8 mmol/L (3.5-5.1)
[2017-12-20 16:00] VITALS: BP 119/71
[2017-12-20 21:11] VITALS: BP 134/63
[2017-12-21 05:27] VITALS: BP 131/73
[2017-12-21 08:32] VITALS: BP 142/75
[2017-12-21 16:51] VITALS: BP 148/76
[2017-12-21 20:00] VITALS: BP 157/69
[2017-12-22] VITALS: BP 123/57
[2017-12-22 04:00] VITALS: BP 130/65
[2017-12-22 06:10] LABS: ABSOLUTE NEUTROPHILS 12.7 thou/uL (1.4-8.2); BASOPHILS 0.3 % (0.0-2.0); EOSINOPHILS 0.6 % (0.0-3.0); HEMATOCRIT 24.5 % (37.0-47.0); HEMOGLOBIN 8.4 gm/dL (12.0-15.0); LYMPHOCYTES 6.8 % (24.0-44.0); MCH 33.8 pg (26.0-34.0); MCHC 34.4 g/dL (28.0-37.0); MCV 98.2 fL (80.0-100.0); MONOCYTES 6.7 % (1.0-8.0); POLYS 85.6 % (36.0-66.0); RBC 2.49 mil/uL (4.20-5.00); RDW 13.6 % (10.5-14.5); WBC 14.8 thou/uL (4.0-11.0)
[2017-12-22 06:16] LABS: PLATELET COUNT 435 thou/uL (150-400)
[2017-12-22 06:23] LABS: CALCIUM 8.1 mg/dL (8.5-10.1); CREATININE 0.8 mg/dL (0.6-1.0); POTASSIUM 3.2 mmol/L (3.5-5.1)
[2017-12-22 07:44] VITALS: BP 135/60
[2017-12-22 19:47] VITALS: BP 118/76
[2017-12-22 20:00] VITALS: BP 112/67
[2017-12-23 04:00] VITALS: BP 137/78
[2017-12-23 06:03] LABS: HEMATOCRIT 25.5 % (37.0-47.0); HEMOGLOBIN 8.4 gm/dL (12.0-15.0); MCH 32.9 pg (26.0-34.0); MCHC 32.9 g/dL (28.0-37.0); MCV 99.8 fL (80.0-100.0); PLATELET COUNT 412 thou/uL (150-400); RBC 2.56 mil/uL (4.20-5.00); WBC 14.8 thou/uL (4.0-11.0)
[2017-12-23 06:10] LABS: CALCIUM 7.8 mg/dL (8.5-10.1); CREATININE 0.9 mg/dL (0.6-1.0); MAGNESIUM 1.6 mg/dL (1.8-2.4); POTASSIUM 4.2 mmol/L (3.5-5.1)
[2017-12-23 08:07] LABS: ABSOLUTE NEUTROPHILS 11.5 thou/uL (1.4-8.2); ANISOCYTOSIS 1+; METAMYELOCYTES 2 %; MYELOCYTES 1 %
[2017-12-23 08:43] VITALS: BP 132/67
[2017-12-23 16:12] VITALS: BP 117/65
[2017-12-23 19:51] VITALS: BP 136/70
[2017-12-24 03:57] LABS: MAGNESIUM 2.5 mg/dL (1.8-2.4); POTASSIUM 3.7 mmol/L (3.5-5.1)
[2017-12-24 04:00] VITALS: BP 114/61
[2017-12-24 04:03] LABS: BASOPHILS 0.5 % (0.0-2.0); EOSINOPHILS 0.3 % (0.0-3.0); HEMOGLOBIN 7.7 gm/dL (12.0-15.0); LYMPHOCYTES 4.9 % (24.0-44.0); MCHC 33.4 g/dL (28.0-37.0); MCV 98.8 fL (80.0-100.0); MONOCYTES 6.5 % (1.0-8.0); PLATELET COUNT 343 thou/uL (150-400); POLYS 87.8 % (36.0-66.0); RBC 2.33 mil/uL (4.20-5.00); RDW 13.7 % (10.5-14.5); WBC 15.9 thou/uL (4.0-11.0)
[2017-12-24 09:26] VITALS: BP 121/73
[2017-12-24 17:24] VITALS: BP 127/72
[2017-12-24 20:10] VITALS: BP 118/68
[2017-12-25 04:40] VITALS: BP 116/54
[2017-12-25 05:13] LABS: BASOPHILS 0.4 % (0.0-2.0)
[2017-12-25 05:15] LABS: ABSOLUTE NEUTROPHILS 11.8 thou/uL (1.4-8.2); EOSINOPHILS 0.6 % (0.0-3.0); HEMATOCRIT 22.8 % (37.0-47.0); HEMOGLOBIN 7.6 gm/dL (12.0-15.0); LYMPHOCYTES 6.4 % (24.0-44.0); MCH 33.1 pg (26.0-34.0); MCHC 33.4 g/dL (28.0-37.0); MCV 99.3 fL (80.0-100.0); MONOCYTES 8.1 % (1.0-8.0); PLATELET COUNT 317 thou/uL (150-400); POLYS 84.5 % (36.0-66.0); RDW 13.8 % (10.5-14.5); WBC 13.9 thou/uL (4.0-11.0)
[2017-12-25 05:19] LABS: ALBUMIN 1.8 g/dL (3.4-5.0); CALCIUM 7.7 mg/dL (8.5-10.1); CREATININE 0.8 mg/dL (0.6-1.0); POTASSIUM 3.9 mmol/L (3.5-5.1); TOTAL BILIRUBIN 0.2 mg/dL (<0.1-1.0); TOTAL PROTEIN 5.2 g/dL (6.4-8.2)
[2017-12-25 05:28] LABS: MAGNESIUM 2.1 mg/dL (1.8-2.4); PHOSPHORUS 3.8 mg/dL (2.5-4.9)
[2017-12-25 07:56] VITALS: BP 123/71
[2017-12-25 15:44] VITALS: BP 128/71
[2017-12-25 19:21] VITALS: BP 124/64
[2017-12-26 04:05] VITALS: BP 135/78
[2017-12-26 06:22] LABS: HEMATOCRIT 22.2 % (37.0-47.0); HEMOGLOBIN 7.3 gm/dL (12.0-15.0); MCH 33.1 pg (26.0-34.0); MCHC 32.9 g/dL (28.0-37.0); MCV 100.7 fL (80.0-100.0); RBC 2.2 mil/uL (4.20-5.00); RDW 13.8 % (10.5-14.5); WBC 13.1 thou/uL (4.0-11.0)
[2017-12-26 06:38] LABS: ALBUMIN 1.8 g/dL (3.4-5.0); CALCIUM 7.8 mg/dL (8.5-10.1); CREATININE 0.9 mg/dL (0.6-1.0); POTASSIUM 4.4 mmol/L (3.5-5.1); TOTAL BILIRUBIN 0.1 mg/dL (<0.1-1.0)
[2017-12-26 06:41] LABS: MAGNESIUM 2.1 mg/dL (1.8-2.4); PHOSPHORUS 4.2 mg/dL (2.5-4.9)
[2017-12-26 07:42] VITALS: BP 139/79
[2017-12-26 20:18] VITALS: BP 121/49
[2017-12-27 04:00] VITALS: BP 125/65
[2017-12-27 08:10] VITALS: BP 115/62
[2017-12-27 08:23] LABS: HEMATOCRIT 22.5 % (37.0-47.0); HEMOGLOBIN 7.4 gm/dL (12.0-15.0); MCH 32.9 pg (26.0-34.0); MCHC 33.1 g/dL (28.0-37.0); MCV 99.6 fL (80.0-100.0); RBC 2.26 mil/uL (4.20-5.00); RDW 13.9 % (10.5-14.5)
[2017-12-27 08:36] LABS: PHOSPHORUS 4.6 mg/dL (2.5-4.9)
[2017-12-27 08:37] LABS: ALBUMIN 1.9 g/dL (3.4-5.0); CALCIUM 8.2 mg/dL (8.5-10.1); CREATININE 0.9 mg/dL (0.6-1.0); POTASSIUM 4.1 mmol/L (3.5-5.1); TOTAL PROTEIN 5.4 g/dL (6.4-8.2)
[2017-12-27 08:53] LABS: TOTAL BILIRUBIN 0.1 mg/dL (<0.1-1.0)
[2017-12-27 16:04] VITALS: BP 115/64
[2017-12-27 19:54] VITALS: BP 117/61
[2017-12-28 04:00] VITALS: BP 122/69
[2017-12-28 05:23] LABS: HEMATOCRIT 22.6 % (37.0-47.0); HEMOGLOBIN 7.5 gm/dL (12.0-15.0); MCH 32.9 pg (26.0-34.0); MCHC 33.1 g/dL (28.0-37.0); MCV 99.3 fL (80.0-100.0); RBC 2.27 mil/uL (4.20-5.00); RDW 13.8 % (10.5-14.5); WBC 12.9 thou/uL (4.0-11.0)
[2017-12-28 05:45] LABS: MAGNESIUM 2.1 mg/dL (1.8-2.4); PHOSPHORUS 4.9 mg/dL (2.5-4.9)
[2017-12-28 05:48] LABS: ANION GAP 8 mmol/L (7-16); BUN 10 mg/dL (7-18); CALCIUM 8.2 mg/dL (8.5-10.1); CHLORIDE 106 mmol/L (98-107); CO2 26 mmol/L (21-32); CREATININE 0.8 mg/dL (0.6-1.0); GLUCOSE 113 mg/dL (74-106); POTASSIUM 4.6 mmol/L (3.5-5.1); SGOT 13 U/L (15-37); SGPT 12 U/L (30-65); SODIUM 140 mmol/L (136-145); TOTAL BILIRUBIN < 0.1 mg/dL (<0.1-1.0)
[2017-12-28 07:42] VITALS: BP 148/82
[2017-12-28 16:17] VITALS: BP 121/73
[2017-12-28 20:03] VITALS: BP 135/65
[2017-12-29 03:46] VITALS: BP 119/69
[2017-12-29 06:41] LABS: URINE BILIRUBIN NEGATIVE (Negative); URINE BLOOD NEGATIVE (Negative); URINE CLARITY CLEAR; URINE COLOR YELLOW; URINE GLUCOSE-RANDOM* NEGATIVE (Negative); URINE KETONES NEGATIVE (Negative); URINE LEUKOCYTES-REFLEX NEGATIVE (Negative); URINE NITRITE-REFLEX NEGATIVE (Negative); URINE PROTEIN (DIPSTICK) NEGATIVE (Negative); URINE UROBILINOGEN 0.2 E.U./dl (0.2-1.0)
[2017-12-29 10:13] VITALS: BP 131/64
[2017-12-29 17:02] VITALS: BP 117/64
[2017-12-29 19:52] VITALS: BP 110/60
[2017-12-30 04:00] VITALS: BP 109/56
[2017-12-30 06:11] LABS: HEMATOCRIT 23.1 % (37.0-47.0); HEMOGLOBIN 7.8 gm/dL (12.0-15.0); MCH 33.7 pg (26.0-34.0); MCHC 33.8 g/dL (28.0-37.0); MCV 99.7 fL (80.0-100.0); RBC 2.31 mil/uL (4.20-5.00)
[2017-12-30 07:37] VITALS: BP 123/71
[2017-12-30] MEDS ORDERED: HYDROCODON-ACE1 EAC7 PO (09:34)
[2017-12-30] MEDS ORDERED: FLORANEX GRANU1 EACH PO (09:34)
[2017-12-30] MEDS ORDERED: VANCOMYCIN HCL10 GM PO (09:34)
[2017-12-30 15:45] VITALS: BP 135/60
== END 2017-12-30 18:03 | DRG 871 ==
LOC: ER 14:13 → 4N 16:48 → EROBS 16:48 → 4N 18:36
PROVIDERS: Hospitalist; Internal Medicine Endocrinology, Diabetes & Metabolism; Internal Medicine Gastroenterology; Nurse Practitioner; Nurse Practitioner Family; Specialist
PROC: 05HB33Z Insertion of Infusion Device into Right Basilic Vein, Percutaneous Approach (ICD-10-PCS; principal; 2017-12-21)
DX: A41.9 Sepsis, unspecified organism (principal); E43 Unspecified severe protein-calorie malnutrition; A04.72 Enterocolitis due to Clostridium difficile, not specified as recurrent; J44.1 Chronic obstructive pulmonary disease with (acute) exacerbation; J90 Pleural effusion, not elsewhere classified; Z68.1 Body mass index [BMI] 19.9 or less, adult; K22.70 Barrett's esophagus without dysplasia; I10 Essential (primary) hypertension; F17.210 Nicotine dependence, cigarettes, uncomplicated; E87.6 Hypokalemia; E86.0 Dehydration; B19.20 Unspecified viral hepatitis C without hepatic coma; I48.91 Unspecified atrial fibrillation; Z96.89 Presence of other specified functional implants; D64.9 Anemia, unspecified; Z87.01 Personal history of pneumonia (recurrent); Z87.11 Personal history of peptic ulcer disease; Z90.49 Acquired absence of other specified parts of digestive tract; Z90.710 Acquired absence of both cervix and uterus; Z86.73 Personal history of transient ischemic attack (TIA), and cerebral infarction without residual deficits; Z85.41 Personal history of malignant neoplasm of cervix uteri; Z79.899 Other long term (current) drug therapy; Z88.6 Allergy status to analgesic agent; Z88.8 Allergy status to other drugs, medicaments and biological substances; Z83.6 Family history of other diseases of the respiratory system
CPT/HCPCS: 10091; 27000

== ENCOUNTER 2018-04-24 18:18 | Emergency (ER) | payer OTHER ==
[~2018-04-24] VITALS: Ht 152.4 cm; Wt 47.6 kg
[~2018-04-24 18:18] MED LIST changes: +FLORANEX GRANU1 EACH PO; +VANCOMYCIN HCL10 GM PO
[2018-04-24 18:49] LABS: URINE BILIRUBIN NEGATIVE (Negative); URINE BLOOD TRACE (Negative); URINE CLARITY CLEAR; URINE COLOR YELLOW; URINE GLUCOSE-RANDOM* NEGATIVE (Negative); URINE KETONES NEGATIVE (Negative); URINE LEUKOCYTES NEGATIVE (Negative); URINE NITRITE NEGATIVE (Negative); URINE PROTEIN (DIPSTICK) 2+ (Negative); URINE SPECIFIC GRAVITY 1.025 (1.005-1.035); URINE UROBILINOGEN 0.2 E.U./dl (0.2-1.0)
[2018-04-24 19:07] LABS: SQUAMOUS 4-10 Moderate /LPF (0-3)
[2018-04-24 19:08] LABS: URINE WBC 0-5 Rare /HPF (0-5)
[2018-04-24 19:09] LABS: BACTERIA None Seen /HPF (None Seen); CRYSTALS None Seen /LPF (None Seen); HYALINE CASTS 0-3 Few /LPF (None Seen); URINE RBC 0-2 Rare /HPF (0-2)
[2018-04-24 20:05] LABS: ABSOLUTE NEUTROPHILS 5.2 thou/uL (1.4-8.2); BASOPHILS 1.2 % (0.0-2.0); EOSINOPHILS 1.4 % (0.0-3.0); HEMATOCRIT 36.4 % (37.0-47.0); HEMOGLOBIN 12.4 gm/dL (12.0-15.0); LYMPHOCYTES 31.7 % (24.0-44.0); MCH 31.8 pg (26.0-34.0); MCV 93.6 fL (80.0-100.0); MONOCYTES 7.4 % (1.0-8.0); PLATELET COUNT 311 thou/uL (150-400); POLYS 58.3 % (36.0-66.0); RBC 3.89 mil/uL (4.20-5.00); RDW 15.9 % (10.5-14.5); WBC 8.9 thou/uL (4.0-11.0)
[2018-04-24 20:12] LABS: ANION GAP 12 mmol/L (7-16); BUN 19 mg/dL (7-18); CALCIUM 9.1 mg/dL (8.5-10.1); CHLORIDE 106 mmol/L (98-107); CO2 22 mmol/L (21-32); CREATININE 0.9 mg/dL (0.6-1.0); GLUCOSE 114 mg/dL (74-106); POTASSIUM 3.3 mmol/L (3.5-5.1); SODIUM 140 mmol/L (136-145)
[2018-04-24 20:16] LABS: ALBUMIN 3.8 g/dL (3.4-5.0); DIRECT BILIRUBIN < 0.1 mg/dL (<0.1-0.3); SGOT 18 U/L (15-37); SGPT 24 U/L (30-65); TOTAL BILIRUBIN 0.2 mg/dL (<0.1-1.0); TOTAL PROTEIN 7.4 g/dL (6.4-8.2)
[2018-04-24] MEDS ORDERED: NORVASC10 MG PO (20:55)
[2018-04-24] MEDS ORDERED: NORCO 5-325 TA1 EACH PO (20:55)
[2018-04-24] MEDS ORDERED: LISINOPRIL10 MG PO (20:55)
[2018-04-24 21:07] VITALS: BP 175/94
== END 2018-04-24 21:27 | disposition home or self-care (01) ==
LOC: ER 18:18
PROVIDERS: Emergency Medicine
DX: I10 Essential (primary) hypertension (principal); M54.5 Low back pain; R11.2 Nausea with vomiting, unspecified; J44.9 Chronic obstructive pulmonary disease, unspecified; F17.210 Nicotine dependence, cigarettes, uncomplicated; Z86.73 Personal history of transient ischemic attack (TIA), and cerebral infarction without residual deficits; Z90.49 Acquired absence of other specified parts of digestive tract; Z90.710 Acquired absence of both cervix and uterus; Z88.8 Allergy status to other drugs, medicaments and biological substances; Z88.6 Allergy status to analgesic agent; Z88.5 Allergy status to narcotic agent

== ENCOUNTER 2019-01-25 18:42 | Emergency (ER) | payer OTHER ==
[~2019-01-25] VITALS: Ht 152.4 cm; Wt 47.6 kg
[~2019-01-25 18:42] MED LIST changes: +NORVASC10 MG PO
[2019-01-25 19:30] LABS: ANION GAP 12 mmol/L (7-16); BUN 20 mg/dL (7-18); CHLORIDE 103 mmol/L (98-107); CO2 23 mmol/L (21-32); CREATININE 0.9 mg/dL (0.6-1.0); GLUCOSE 108 mg/dL (74-106); SODIUM 138 mmol/L (136-145)
[2019-01-25 19:31] LABS: ABSOLUTE NEUTROPHILS 5.8 thou/uL (1.4-8.2); BASOPHILS 1.1 % (0.0-2.0); EOSINOPHILS 2.1 % (0.0-3.0); HEMATOCRIT 36.1 % (37.0-47.0); HEMOGLOBIN 12.2 gm/dL (12.0-15.0); LYMPHOCYTES 19.3 % (24.0-44.0); MCH 32.8 pg (26.0-34.0); MCHC 33.8 g/dL (28.0-37.0); MCV 97.1 fL (80.0-100.0); MONOCYTES 9.4 % (1.0-8.0); PLATELET COUNT 214 thou/uL (150-400); POLYS 68.1 % (36.0-66.0); RBC 3.72 mil/uL (4.20-5.00); RDW 13.5 % (10.5-14.5); WBC 8.6 thou/uL (4.0-11.0)
[2019-01-25 19:38] LABS: ALBUMIN 3.7 g/dL (3.4-5.0); SGOT 34 U/L (15-37); SGPT 38 U/L (30-65); TOTAL BILIRUBIN 0.4 mg/dL (<0.1-1.0); TOTAL PROTEIN 7.5 g/dL (6.4-8.2); TROPONIN-I <0.06 ng/mL (<0.06)
[2019-01-25] MEDS ORDERED: AZITHROMYCIN 2250 MG PO (20:29)
[2019-01-25] MEDS ORDERED: PREDNISONE 20 M20 MG PO (20:29)
[2019-01-25 22:25] VITALS: BP 138/80
--- NOTE | 2019-01-26 17:06 | EKG ---
[place] [address] [facility] [place] [address] ELECTROCARDIOGRAM REPORT Name: BIPIN RICCI Room #: DEP [facility]#: [id number] ������������������ Admission: 01/25/19 ������������������ Attend Phys: Discharge: 01/25/19 ������������������ Date of : 52 Report #: [id number] ����������������������������������������������������������������� [id number] THIS REPORT FOR: //name// [facility] ED Test Date: 2019-01-25 Test Time: 18:56:13 Pat Name: BIPIN RICCI Department: Room: Gender: F Obstetrician And Gynaecologist: KKODJOVI : 1950 Requested By: Corin Lane Order Number: [id number] MD: Armando Falcon Measurements Intervals [place] Rate: 73 P: 61 MN: 120 QRS: -9 QRSD: 78 T: 8 QT: 403 QTc: 444 Interpretive Statements Sinus rhythm Nonspecific ST and T wave abnormality Compared to ECG 11/22/2017 17:38:52 Sinus tachycardia no longer present Electronically Signed On 01-26-2019 17:06:17 CDT by Armando Falcon [email or web address] ��������������������������������������������� <ELECTRONICALLY SIGNED> ���������������������������������������� By: Armando Falcon MD, [facility] ��������������������������������������������� 01/26/19 1706 55 55 Armando Falcon MD, FACC /EPI
== END 2019-01-25 21:45 | disposition home or self-care (01) ==
LOC: ER 18:42
PROVIDERS: Student in an Organized Health Care Education/Training Program
DX: J44.1 Chronic obstructive pulmonary disease with (acute) exacerbation (principal); F17.210 Nicotine dependence, cigarettes, uncomplicated; Z88.8 Allergy status to other drugs, medicaments and biological substances; Z88.6 Allergy status to analgesic agent; Z88.5 Allergy status to narcotic agent; Z86.73 Personal history of transient ischemic attack (TIA), and cerebral infarction without residual deficits; Z90.49 Acquired absence of other specified parts of digestive tract; Z90.710 Acquired absence of both cervix and uterus; Z85.42 Personal history of malignant neoplasm of other parts of uterus; Z90.11 Acquired absence of right breast and nipple

== ENCOUNTER 2019-06-29 15:01 | Inpatient (IN) | payer OTHER ==
[~2019-06-29] VITALS: Ht 165.1 cm; Wt 45.4 kg
[~2019-06-29 15:01] MED LIST changes: +AZITHROMYCIN 2250 MG PO; +PREDNISONE 20 M20 MG PO
[2019-06-29 15:02] VITALS: BP 206/89
[2019-06-29 15:53] LABS: BASOPHILS 0.9 % (0.0-2.0); EOSINOPHILS 1.7 % (0.0-3.0); HEMATOCRIT 32.7 % (37.0-47.0); LYMPHOCYTES 27.5 % (24.0-44.0); MCH 33.6 pg (26.0-34.0); MCHC 33.7 g/dL (28.0-37.0); MCV 99.5 fL (80.0-100.0); MONOCYTES 7.4 % (1.0-8.0); PLATELET COUNT 211 thou/uL (150-400); POLYS 62.5 % (36.0-66.0); RBC 3.28 mil/uL (4.20-5.00); RDW 14.9 % (10.5-14.5); WBC 6.3 thou/uL (4.0-11.0)
[2019-06-29 15:57] LABS: APTT 21.2 Seconds (24.5-32.8); PROTIME 10.7 Seconds (9.3-11.4)
[2019-06-29 15:58] LABS: ANION GAP 12 mmol/L (7-16); BUN 24 mg/dL (7-18); CALCIUM 8.9 mg/dL (8.5-10.1); CHLORIDE 103 mmol/L (98-107); CO2 25 mmol/L (21-32); CREATININE 1.3 mg/dL (0.6-1.0); GLUCOSE 149 mg/dL (74-106); POTASSIUM 4.2 mmol/L (3.5-5.1); SODIUM 140 mmol/L (136-145)
[2019-06-29 16:04] LABS: ALBUMIN 3.8 g/dL (3.4-5.0); MAGNESIUM 2.2 mg/dL (1.8-2.4); SGOT 22 U/L (15-37); SGPT 32 U/L (30-65); TOTAL BILIRUBIN 0.2 mg/dL (<0.1-1.0); TOTAL PROTEIN 6.7 g/dL (6.4-8.2)
[2019-06-29 17:00] LABS: CHOLESTEROL 127 mg/dL (<200); HDL CHOLESTEROL 49 mg/dL (>40); LDL CHOLESTEROL 67 mg/dL (<100); TC:HDL 2.6 Ratio (Not establshd); TRIGLYCERIDE 59 mg/dL (<150); VLDL 12 mg/dL (<40)
[2019-06-29 17:01] LABS: URINE BILIRUBIN NEGATIVE (Negative); URINE BLOOD NEGATIVE (Negative); URINE CLARITY CLEAR; URINE COLOR YELLOW; URINE GLUCOSE-RANDOM* NEGATIVE (Negative); URINE KETONES NEGATIVE (Negative); URINE LEUKOCYTES NEGATIVE (Negative); URINE NITRITE NEGATIVE (Negative); URINE PROTEIN (DIPSTICK) 1+ (Negative); URINE UROBILINOGEN 0.2 E.U./dl (0.2-1.0)
[2019-06-29 17:09] LABS: AMP/METHAMP Negative (Negative); BARBITURATES Negative (Negative); BENZODIAZEPINES Negative (Negative); COCAINE Negative (Negative); METHADONE Negative (Negative); OPIATES Negative (Negative); PCP Negative (Negative)
[2019-06-29 17:10] LABS: SQUAMOUS None Seen /LPF (0-3)
[2019-06-29 17:11] LABS: AMORPHOUS URATES Few /LPF (None Seen); BACTERIA 1-9 Few /HPF (None Seen); CASTS None Seen /LPF (None Seen); URINE RBC None Seen /HPF (0-2); URINE WBC None Seen /HPF (0-5)
[2019-06-29 18:58] VITALS: BP 154/73
[2019-06-30] VITALS (45 sets, daily range): BP systolic 136–210; BP diastolic 62–168
[2019-06-30 05:45] LABS: HEMOGLOBIN 10.7 gm/dL (12.0-15.0); MCH 34.2 pg (26.0-34.0); MCHC 34.6 g/dL (28.0-37.0); MCV 98.9 fL (80.0-100.0); RBC 3.13 mil/uL (4.20-5.00); RDW 14.9 % (10.5-14.5); WBC 7.5 thou/uL (4.0-11.0)
[2019-06-30 05:49] LABS: CALCIUM 8.6 mg/dL (8.5-10.1); POTASSIUM 3.9 mmol/L (3.5-5.1)
--- NOTE | 2019-06-30 09:02 | NUR ---
Pt is alert and oriented. CLARK. Pt reporting a headache in frontal region which she rates 8/10. Blood pressure is elevated at 191/88. IV in right forearm is not working (No blood return and painful to flush. Call placed to Dr Sky to notify that jamaal ly no IV access to administer IV medications or nausea meds. Pt is reporting slight nausea following swallow evaluation done by speech therapist. Dr Sky stated he would order something for blood pressure until IV therapis can get there to start line. Pt reported to have been a hard stick previously. Pain pill given for headache-see emar.
--- NOTE | 2019-06-30 09:18 | NUR ---
ORDERS RECEIVED FOR EVALUATION OF SPEAKING VALVE; HOWEVER ENTERED ON ERROR PATIENT DOES NOT HAVE TRACHEOTOMY AND IS NOT A CANDIDATE FOR SPEAKING VALVE. BUGGY MAN TO DC THESE ORDERS.
--- NOTE | 2019-06-30 10:25 | NUR ---
VASCULAR ACCESS TEAM ORDER FOR ML TO BE PLACED. PATIENT AGREEABLE TO HAVE LINE PLACED. SL ML PLACED TO L BASILIC VEIN WITH US GUIDANCE PER HOSPITAL P&P. L BASILIC VEIN WIDELY PATENT. LIDOCAINE 1% 3ML GIVEN SUB Q VEIN CANNULATED WITH ONE ATTEMPT. GUIDEWIRE ADVANCED EASILY. VEIN DILATED. GUIDEWIRE REMOVED INTACT. 4Fr 12CM MIDLINE ADVANCED EASILY. LINE FLUSHES AND DRAWS EASILY. PATIENT TOLERATED PROCEDURE WELL. MIDLINE RELEASED FOR IMMEDIATE USE TO RN.
--- NOTE | 2019-06-30 10:26 | NUR ---
ROLL TABLE OPERATOR TO SEE PATIENT. I WAS WITH THIS PATIENT MOST OF HER ER STAY. HER VISION HAS GREATLY IMPROVED SHE STATES SHE CAN COMPLETLY SEE IN HER LEFT VISUAL FIELD NOW. HER SPEECH HAS ALSO IMPROVED. SHE WAS IN GOOD SPIRITS AND WE SPOKE OF HER NEED TO BE COMPLIANT WITH HER MEDICATIONS SPECIFICALLY HER HTN MEDS. SHE SAID SHE STOPPED TAKING BECAUSE SHE COULDN'T AFFORD. WE NEED TO GET CHIEF ENGINEERING DIVISION INVOLVED AND POSSIBLE GET HER ASSISTANCE WITH THIS MATTER. I WILL CONTINUE TO FOLLOW THIS PATIENT THROUGH OUT HER STAY.
--- NOTE | 2019-06-30 10:43 | HC ---
[facility] [place] [address] CONSULTATION Name: BIPIN RICCI Room #: 240-P ADM IN M.R.#: [id number] Admission: 06/29/19 Attend Phys: Anjel Sky MD Discharge: Date of : 52 Report #: [id number] THIS REPORT FOR: //name// CC: Anjel Williamson DATE OF SERVICE: 06/29/2019 HISTORY OF PRESENT ILLNESS: This is a 68-year-old female patient on whom a huge amount of spine was spent today. I initially got a call from Emergency Room physician that she presented with significantly dysarthric speech as well as pretty significant ataxia. When I examined her, I also noticed dense left hemianopsia. I initially talked to Dr. Hardin and the plan was to give this patient TPA. Unfortunately, her blood pressure was outside the range for giving tPA and he was trying to control the blood pressure to give this patient TPA. Initial history was that she had sudden onset of the symptoms at about 2:10. Then, the story became confusing. The patient has poor memory. I called the patient's daughter then made multiple calls to the patient's daughter and son. They did not have much history. Then, a friend came, he provided some history and he said the patient was okay around 1:00 and sometime after that this happened. That history was from the logs of the patient's friend's phone. We could not find any firsthand witness even after multiple attempts. The friend was nice enough to drive to the living place because he could not contact them on the phone and were finally able to reach somebody, who was with her when this happened. From her, the history was pretty clear that this patient had a sudden onset of speech difficulty and she was sitting and she was unable to stand and before that she was able to walk. The best I can determine the time of onset is between 1 p.m. to 2 p.m., probably closer to 2 p.m. as originally estimated. Her dysarthric speech fluctuated from severe to mild when she was in the Emergency Room. Hemianopsia continued to be dense on the left side and she realized that she had blurred vision and she states that it started at the same time. She had marked ataxia that appeared to have improved on the last examination. Her memory is poor, but that is her baseline. She is complaining of headache, which has been present since the patient had this episode and in fact she had some headache even in the baseline. Examination was carried out multiple times and because of time limitation, will be described in lump sum. She never had any paralysis. She had pretty significant ataxia initially, which appeared to have improved. Speech has fluctuated from very dysarthric where it is barely understandable to only mild dysarthria. She continued to have a dense left hemiplegia. Cardiac examination is unremarkable. Blood pressure was high, but it was managed by Emergency Room physician and it did come down in the range to give tPA. I discussed with the son. I discussed with the patient's daughter and I discussed with the patient herself. Although she has memory problem, she is [facility] [address] [place] [address] CONSULTATION Name: BIPIN RICCI JEFF Room #: 240-P [facility] IN M.R.#: [id number] Admission: 06/29/19 Attend Phys: Anjel Sky MD Discharge: Date of : 52 Report #: [id number] competent to make her decision. Decision is difficult, but I think later on, it became clear that the symptoms started around 2:00 p.m., but that is after a lot of inquiry. I discussed with them. They have to make a decision about the tPA. We went over the exclusion criteria for tPA and she said she does not have one. After understanding the pros and cons of TPA, she wanted to get TPA. She realized the difficulty and management in this regard and it is catastrophic and frequently fatal complication of hemorrhage into the brain or any other portion of the body. TPA was started. She continued to complain of headache, but then started complaining of neck pain also. Because of that TPA has been interrupted and she has been taken for another CAT scan to make sure that she has no bleed and then the TPA will be resumed. We have made multiple attempts to do an MRI in this patient. Initially, I was told MRI is broken. Subsequently, I was told that I have to go and tell them that MRI is needed before they come and do that. I personally went to the Radiology Department and told them the need to call the MRI people to do the MRI. At the time of the dictation, MRI is still not done. The plan will be to get a CT scan done. If CT scan shows no bleed, then finish the TPA and then complete the MRI. About 90 minutes of time has been spent taking care of this patient today and majority of time has been spent counseling the patient and family and coordinating her care by talking to numerous physicians and the patient's family and friend and multiple times with Dr. Hardin and the help desk coordinator. <ELECTRONICALLY SIGNED> By: Willie Sebastian MD 06/30/19 1043 1809 0021 Willie Sebastian MD /nt
--- NOTE | 2019-06-30 12:33 | 2DMMODE ---
[facility] [place] [address] 2 D/M-MODE ECHOCARDIOGRAM Name: BIPIN RICCI PRESTON Room #: 240-P ADM IN M.R.#: [id number] Admission: 06/29/19 Attend Phys: Anjel Sky MD Discharge: Date of : 52 Date of Service: 06/30/19 1232 Report #: [id number] THIS REPORT FOR: //name// APPROVED REPORT Study performed: 06/30/2019 11:02:32 EXAM: Comprehensive 2D, Doppler, and color-flow Echocardiogram Patient Location: ICU Room #: 240 Status: routine BSA: 1.37 HR: 90 bpm BP: 190/90 mmHg Rhythm: Irregular Other Information Study Quality: Good Indications CVA. Hx: HTN, COPD, CVA. Echo Enhancing Agent Indication: Rule out Shunt Agent(s) / Amount(s) Used: Agitated Saline 6 cc 2D Dimensions RVDd: 32.21 mm IVSd: 12.86 (7-11mm) LVOT Diam: 20.66 (18-24mm) LVDd: 45.31 mm PWd: 12.36 (7-11mm) Ascending Ao: 29.25 (22-36mm) LVDs: 39.83 (25-40mm) Aortic Root: 31.86 mm Volumes Left Atrial Volume (Systole) Single Plane 4CH: 53.44 mL Single Plane 2CH: 60.89 mL LA ESV Index: 45.00 mL/m2 Aortic Valve AoV Peak Willie.: 1.25 m/s AO Peak Gr.: 6.28 mmHg LVOT Max P.89 mmHg LVOT Max V: 0.85 m/s TING Vmax: 2.27 cm2 [facility] [place] [place] [address] 2 D/M-MODE ECHOCARDIOGRAM Name: BIPIN RICCI PRESTON Room #: [address] [place] [address] [place] ..#: [id number] Admission: 06/29/19 Attend Phys: Anjel Sky MD Discharge: Date of : 52 Date of Service: 06/30/19 1232 Report #: [id number] Pulmonary Valve PV Peak Willie.: 1.13 m/s PV Peak Gr.: 5.13 mmHg Tricuspid Valve TR Peak Willie.: 3.18 m/s RAP Estimate: 5.00 mmHg TR Peak Gr.: 40.50 mmHg PA Pressure: 41.00 mmHg Left Ventricle The left ventricle is normal size. Mild concentric left ventricular hypertrophy. Left ventricular systolic function is normal. LVEF is 50-55%. This study is not technically sufficient to allow evaluation of the LV diastolic function. Right Ventricle The right ventricle is normal size. The right ventricular systolic function is normal. Atria Left atrium is moderately dilated. There is a PFO noted with color doppler. Positive bubble study showing right to left shunting. The right atrium size is normal. Aortic Valve Aortic valve is mildly calcified. No aortic regurgitation is present. There is no aortic valvular stenosis. Mitral Valve The mitral valve is normal in structure. Mild mitral regurgitation. Tricuspid Valve The tricuspid valve is normal in structure. Mild tricuspid regurgitation. Estimated PAP is 40-45mmHg. Pulmonic Valve The pulmonary valve is normal in structure. Mild pulmonic regurgitation. Great Vessels The aortic root is normal in size. The ascending aorta is normal in size. IVC is normal in size and collapses >50% with inspiration. Pericardium There is no pericardial effusion. [facility] [address] [place] [address] 2 D/M-MODE ECHOCARDIOGRAM Name: BIPIN RICCI JEFF Room #: [address] [place] [address] [place] .R.#: [id number] Admission: 06/29/19 Attend Phys: Anjel Sky MD Discharge: Date of : 52 Date of Service: 06/30/19 1232 Report #: [id number] <Conclusion> The left ventricle is normal size. LVEF is 50-55%. Left atrium is moderately dilated. The right atrium size is normal. Aortic valve is mildly calcified. The mitral valve is normal in structure. Mild mitral regurgitation. The tricuspid valve is normal in structure. Mild tricuspid regurgitation. Estimated PAP is 40-45mmHg. The pulmonary valve is normal in structure. Mild pulmonic regurgitation. There is no pericardial effusion. There is a PFO noted with color doppler. Positive bubble study showing right to left shunting. <ELECTRONICALLY SIGNED> By: Job Haro MD 06/30/19 1232 1232 1232 Job Haro MD /INF
--- NOTE | 2019-06-30 14:37 | NUR ---
MED W TORADOL FOR CON'T PAIN- HUFF,8/10 ON SCALE. STILL W SOME DIPLOPIA,DENIES PHOTOSENSITIVITY.STATES SPEECH IS IMPROVING BUT STIL HAS TROUBLE GETTING SOME WORDS OUT.FAMILY AT BEDSIDE,ROOM DARK,QUIET.SETTLED FOR NAP.--VW
--- NOTE | 2019-06-30 15:35 | NUR ---
INITIAL ASSESSMENT: NAN reviewed chart and spoke with attending physician. Pt was admitted from home due to possible CVA. Pt had TPA. Pt in ICU. Therapies ordered to evaluate pt for discharge needs. Pt has been to [facility] in the past and to [facility]. [facility] is following pt for possible admission to [facility]. NAN met with pt and friend, Hermes, at bedside. Introduced role of SW. Pt and Hermes live in a ground level apt. No steps. Prior to admission, pt was independent with ADLs. Pt had a rollator walker, but gave it to a friend. Pt was not on O2 prior to admission. Pt has used HH services in the past, but unable to recall name of HH provider. Pt's children, Li and Nicolas, both live in [place]. Per Hermes, pt's son is more involved in pt's care. Pt's PCP was Dr. Katerina Williamson. Pt has not seen her for awhile and is interested in getting a PCP at [facility]. Hermes asked to check on status of [place]'s [place], as she has let it lapse in the past. Pt is agreeable with post acute placement if recommended. Pt does not want to return to [facility]. Will check with business office to check status of [place]icaid. NAN is following to assist as needed with discharge planning.
--- NOTE | 2019-06-30 18:00 | NUR ---
Pt eating her dinner. Pt has had persistent frontal headache today despite pain medication. Sinus rhythm. Blood pressure better controlled once one IV route available (midline was placed) and pt started on scheduled medications. Pt has been voiding per bedpan without difficulty. O2 started at 2 liters per cannula. No motor defecits observed. No speech defecit observed. Will continue to monitor. Pt progressing toward goals.
--- NOTE | 2019-06-30 19:00 | NUR ---
Report given to RN assuming care.
[2019-07-01] VITALS (27 sets, daily range): BP systolic 118–162; BP diastolic 54–79
--- NOTE | 2019-07-01 06:42 | NUR ---
Pt has rested well through the night, she received norco x 2 for complaint of a headache. VSS, BP's have remained well under 170 mmHg, NSR, she does have a loose, nonproductive cough. Pt reports that she does not want a nicotine patch, as she doesn't feel that she smokes that much in the course of the day. NIH scores have been 0-1, only residual is decreased sensation to extremities. She voids per bedpan, and has been taking PO fluds well. Pt has a midline to her STORM, site is C/D/I. Will continue to monitor.
--- NOTE | 2019-07-01 13:48 | EKG ---
[place] [address] [facility] [place] [address] ELECTROCARDIOGRAM REPORT Name: RADHAMESBIPIN Room #: 240-P ADM IN M.R.#: [id number] Admission: 06/29/19 Attend Phys: Anjel Sky MD Discharge: Date of : 52 Report #: [id number] THIS REPORT FOR: //name// [facility] ED Test Date: 2019-06-29 Test Time: 15:03:38 Pat Name: BIPIN RICCI Department: Room: 240 Gender: F Bariatric Nurse: : 1950 Requested By: Herbert Hardin Order Number: [id number] MD: Armando Falcon Measurements Intervals [place] Rate: 84 P: 67 GA: 97 QRS: 6 QRSD: 85 T: 143 QT: 367 QTc: 434 Interpretive Statements Sinus rhythm Short GA interval Septal infarct, age indeterminate T wave abnormality, consider lateral ischemia Compared to ECG 01/25/2019 18:56:13 No significant change was found Electronically Signed On 07-01-2019 13:48:15 CDT by Armando Falcon [email or web address] <ELECTRONICALLY SIGNED> By: Armando Falcon MD, [facility] 07/01/19 8308 1503 1503 Armando Falcon MD, [facility] /EPI
--- NOTE | 2019-07-01 16:28 | NUR ---
NAN reviewed chart and spoke with nursing and attending physician. Pt has been accepted to [facility] and they can accept pt over the weekend if she is ready for discharge. NAN met with pt and friend, Hermes, at bedside. Pt is aware and agreeable with discharge plan to [facility]. SW was notified by nursing that pt's dtr had called requesting documentation for pt's apt mgr. NAN asked pt for authorization to contact pt's dtr, who is with pt's son, pt agreeable. Pt's friend, Hermes, got upset and left pt's room and stating he will not be back. Pt states that he has issues with her children. As SW was leaving the unit, pt's friend approached SW to state that he has tried to help pt and pt's children have taken advantage of him. Per Hermes, pt's children both have hx of drug use. They moved in to his apt and he was forced to live in his car. SW asked if he has filed a police report. Hermes states that he tried to get a restraining order against her children, but he has not followed through, as they are both living in [place]. Hermes states he is leaving the hospital and unsure if he will be back. NAN spoke with pt's dtr, iL, via phone. Pt's dtr is currently staying with her brother, Nicolas, in [place]. Li is requesting a physician's order stating pt needs 24 hour care, so Li will be able to move in with pt in her apt, and provide care to pt. Pt's apt requires a physician order to allow anyone to live with the residents. NAN explained that pt will be moving to [facility] for rehab and her progress will be assessed. Recommendations for discharge planning will be determined based on pt's progress with therapy. NAN updated nursing. NAN is following to assist as needed with discharge planning.
--- NOTE | 2019-07-01 17:00 | NUR ---
ASSUMED CARE OF PT AT 0645. REQUIRING O2 WHILE ASLEEP. WALKED THE UNIT WITH THERAPY. NAUSEA AFTER EXERCISE. TX ORDERS. REHAB CONSULTED, [place] THIS WEEKEND.
--- NOTE | 2019-07-01 17:28 | NUR ---
PATIENT IS BEING FOLLOWED BY DR. GAMEZ AND IS A POSSIBLE CANDIDATE FOR ACUTE REHAB. [facility] TO CONTINUE FOLLOWING. FOR QUESTIONS/UPDATES RE: REHAB ADMISSION OVER THE WEEKEND, PLEASE CONTACT [employer] PROPOSAL WRITER, AT [phone].
[2019-07-02] VITALS: BP 138/66
[2019-07-02 04:00] VITALS: BP 139/64
--- NOTE | 2019-07-02 04:41 | NUR ---
PT RESTING IN BED. ABLE TO SLEEP WELL THROUGHOUT SHIFT. PT SR/SB ON MONITOR. PT AFEBRILE AND VSS. ONLY PAIN MED REQUIRED TONIGHT WAS TYLENOL FOR A HUFF. REMAINS ON 2L PER NC SATS 98% AWAITING [facility] BED PLACEMENT.
[2019-07-02 08:01] VITALS: BP 140/40
[2019-07-02] MEDS ORDERED: ATORVASTATIN CA10 MG PO (09:30)
[2019-07-02] MEDS ORDERED: CLOPIDOGREL75 MG PO (09:30)
[2019-07-02] MEDS ORDERED: BENAZEPRIL HCL20 MG PO (09:31)
[2019-07-02] MEDS ORDERED: LOPRESSOR50 PO (09:31)
[2019-07-02] MEDS ORDERED: PEPCID20 MG PO (09:32)
[2019-07-02 11:37] VITALS: BP 140/40
[2019-07-02 12:00] VITALS: BP 163/64
[2019-07-02 12:03] VITALS: BP 163/64
--- NOTE | 2019-07-02 13:11 | NUR ---
1215 PT DISCHARGED, TRANSFERRED TO RM 512. ALL NEW MEDICATIONS REVIEWED WITH PT. NO NEW QUESTIONS. ALL BELONGINGS CLOTHING, CELL PHONE, MUSIC WRITER AND GLASSES SENT WITH PT. PT HAS DENTURES IN MOUTH. REPORT GIVEN TO MICHAEL FULTON. NIHSS ASSESSED AND DOCUMENTED APPROPRIATELY.
== END 2019-07-02 12:15 | DRG 61 ==
LOC: ER 15:01 → EROBS 16:49 → ICU 16:49
PROVIDERS: Emergency Medicine; ADMIT Hospitalist
PROC: 3E03317 Introduction of Other Thrombolytic into Peripheral Vein, Percutaneous Approach (ICD-10-PCS; 2019-06-29)
PROC: 05HY33Z Insertion of Infusion Device into Upper Vein, Percutaneous Approach (ICD-10-PCS; principal; 2019-06-30)
PROC: B54NZZA Ultrasonography of Left Upper Extremity Veins, Guidance (ICD-10-PCS; principal; 2019-06-30)
DX: I63.9 Cerebral infarction, unspecified (principal); E43 Unspecified severe protein-calorie malnutrition; Z68.1 Body mass index [BMI] 19.9 or less, adult; I10 Essential (primary) hypertension; J44.9 Chronic obstructive pulmonary disease, unspecified; B19.20 Unspecified viral hepatitis C without hepatic coma; Z60.2 Problems related to living alone; F17.210 Nicotine dependence, cigarettes, uncomplicated; G40.909 Epilepsy, unspecified, not intractable, without status epilepticus; Z83.3 Family history of diabetes mellitus; Z82.49 Family history of ischemic heart disease and other diseases of the circulatory system; Z82.3 Family history of stroke; Z90.49 Acquired absence of other specified parts of digestive tract; Z90.710 Acquired absence of both cervix and uterus; Z88.6 Allergy status to analgesic agent; Z88.8 Allergy status to other drugs, medicaments and biological substances; Z83.6 Family history of other diseases of the respiratory system; Z91.14 Patient's other noncompliance with medication regimen; Z85.89 Personal history of malignant neoplasm of other organs and systems; Z71.6 Tobacco abuse counseling
CPT/HCPCS: 10078; 10196; 27000

== ENCOUNTER 2019-07-02 10:29 | Inpatient (IN) | payer OTHER ==
[~2019-07-02] VITALS: Ht 152.4 cm; Wt 39.5 kg
--- NOTE | ~2019-07-02 | PLAN ---
[facility] [address] [place] [address] REHAB UNIT PLAN OF CARE Name: BIPIN RICCI Room #: 512-P ADM IN M.R.#: [id number] Admission: 07/02/19 Attend Phys: Bradly Garcia MD Discharge: Date of : 52 Report #: [id number] THIS REPORT FOR: //name// CC: Katerina Garcia DATE OF SERVICE: 07/04/2019 PROGRESS NOTE AND OVERALL PLAN OF CARE SUBJECTIVE: The patient was seen back in followup. She is in no distress. She is a pleasant, small statured, up working in therapies today. She appears to have symmetric coordination of both upper extremities. She could actually get up on her tiptoes with me with close gait belt assistance for balance. She has been min assist for short distance ambulation, min assist for transfers, min assist for lower body dressing. She is being further assessed this morning. Speech therapy is also involved as far as cognition and communication. ASSESSMENT: 1. Left parietal cerebrovascular accident. 2. Balance deficits with decreased functional mobility. 3. Mild right-sided coordination deficits. 4. Left-sided hemianopsia that continues to appear improved. 5. Previously uncontrolled hypertension. 6. Chronic obstructive pulmonary disease. 7. Tobacco abuse. 8. Hepatitis C. 9. Seizure disorder. 10. Medication noncompliance. PLAN: The overall plan of care is based on the preadmission screen, post-admission physician evaluation and information garnered from therapy assessments. 1. Estimated length of stay is probably at least 10-14 days pending progress. It may be shorter depending upon how she does. 2. Medical prognosis is reasonably good. 3. Anticipated interventions includes the interdisciplinary acute inpatient rehabilitation program. 4. Anticipated functional outcomes would be for the patient to become modified independent with transfers, mobility, ADLs so that she can hopefully return back to her prior living situation. 5. Discharge destination would be back to the home setting. 6. Expected therapy by discipline includes PT, OT and speech 1 hour per day [address] [address] REHAB UNIT PLAN OF CARE Name: BIPIN RICCI [place] Room #: 512-P [facility] IN ..#: [id number] Admission: 07/02/19 Attend Phys: Bradly Garcia MD Discharge: Date of : 52 Report #: [id number] each five days a week throughout the duration of the acute inpatient rehabilitation stay. By: 0840 1847 Bradly Garcia MD /[facility]
[~2019-07-02 10:29] MED LIST changes: +ATORVASTATIN CA10 MG PO; +CLOPIDOGREL75 MG PO; +LOPRESSOR50 PO
[2019-07-02 12:20] VITALS: BP 159/67
--- NOTE | 2019-07-02 12:42 | NUR ---
1215 ADMITTED TO ROOM 512. PATIENT IS ALERT AND ORIENTED X4. PATIENT CLARK'S. TELEPHONE SALES REPRESENTATIVE ARE EQUAL. LUNGS ARE CLEAR. ABD IS SOFT WITH BSX4. PATIENT IS UP WITH GAIT BELT AND ASSIST OF 1 STAFF TO VOID ANJALI COLORED URINE. FALL AND SAFETY PROTOCOLS IN PLACE. DENIES PAIN AT THIS TIME. WILL HAVE PT/OT, [facility] ON THURSDAY. PATIENT HAS MIDLINE LEFT UPPER ARM. PATIENT IS UP IN CHAIR FOR LUNCH. WILL CONTINUE TO MONITER.
[2019-07-02 20:00] VITALS: BP 166/72
--- NOTE | 2019-07-03 02:22 | NUR ---
ASSESSMENT: PT REMAIN ALERT AND ORIENT TIMES FOUR. UP SBA WITH WALKER. NO NEUROLOGICAL CHANGES NOTED. BP ELEVATED, 166/72, METOPROLOL SCHEDULED. C/O SLIGHT HEADACHE, TYLYENOL GIVEN WITH MINIMAL RELIEF. PT'S SON, SOFIE CALLED WITH CORRECT CODE TO INQUIRE ABOUT PT'S WELL BEING. PT STATE THAT SHE WISHES TO GO HOME TOMORROW. SLOW PROGRESS TOWARDS DC, WILL CONTINUE TO MONITOR.
[2019-07-03 05:16] LABS: HEMATOCRIT 28.7 % (37.0-47.0); HEMOGLOBIN 9.7 gm/dL (12.0-15.0); MCH 33.4 pg (26.0-34.0); MCHC 33.6 g/dL (28.0-37.0); MCV 99.3 fL (80.0-100.0); RBC 2.89 mil/uL (4.20-5.00); RDW 14.7 % (10.5-14.5); WBC 7.6 thou/uL (4.0-11.0)
[2019-07-03 05:25] LABS: CALCIUM 8.7 mg/dL (8.5-10.1); CREATININE 1.1 mg/dL (0.6-1.0); POTASSIUM 4.4 mmol/L (3.5-5.1)
[2019-07-03 08:00] VITALS: BP 186/86
--- NOTE | 2019-07-03 09:11 | NUR ---
ASSUMED CARE AT 0700. PATIENT IS ALERT AND ORIENTED X4. PATIENT CLARK'S, MEDICAL ECONOMICS CONSULTANT ARE EQUAL. LUNGS ARE CLEAR AND DEMINISHED. PATIENT AMBULATED TO BATHROOM WITH GAIT BELT AND WALKER TO VOID ANJALI COLORED URINE. FALL AND SAFETY PROTOCOLS IN PLACE. DENIES PAIN AT THIS TIME. CONTINUES TO PROGRESS TOWARDS D/C GOALS. PATIENT HAS LEFT UPPER ARM MIDLINE. IV SITE WITHOUT REDNESS OR SWELLING. WILL CONTINUE TO MONITER.
[2019-07-03 19:35] VITALS: BP 166/84
[2019-07-04] VITALS (7 sets, daily range): BP systolic 125–210; BP diastolic 68–97
--- NOTE | 2019-07-04 02:14 | NUR ---
ASSUMED CARES AT 1900. PT AWAKE, ALERT AND ORIENTED*4. C/O HEADACHE 06/18, TYLENOL ADMINISTERED. VITALS REMAIN STABLE. UP WITH 1 SBA, GAITBELT AND WALKER AND TOLERATED WELL. SLEPT WELL THROUGH THE NIGHT. Q1H VISUAL CHECKS. CALL LIGHT WITHIN REACH. FALL PRECAUTIONS IN PLACE
--- NOTE | 2019-07-04 12:33 | NUR ---
chart review, pt up sitting in chair, friend mikki at bedside. intro to cm, pt preferrs going by devante, a & o x 3 with some confusion and forgetfulness, and able to make her needs know. education on team meeting, and hh. "live in apartment alone, have roommate sometimes cara, can talk with dennis morin, mikki, and mitchell. kids live out of town. live at [facility]. independent prior, own medication management, mikki is transportation. been lccg in past and hh yes but do not remember who it was with. will cont following as needed for dc needs.
--- NOTE | 2019-07-04 13:33 | NUR ---
PATIENT'S FRIEND, NATIVIDAD, CAM TO THE NURSE FOOTWEAR FACTORY WORKER'S OFFICE, VISIBLY UPSET, AND STATING THAT HE IS NOT GOING TO BE ABLE TO PROVIDE A RIDE TO THE PATIENT AT DISCHARGE, AND THAT HE IS CONCERNED ABOUT HER SAFETY IN HER HOME. NATIVIDAD REPEATED HIMSELF MULTIPLE TIMES THAT THE PATIENT AND HER FAMILY WERE TWISTING HIS ARM, AND THAT HE HAS DEPRESSION AND HAS BEEN TRYING TO BE NICE TO THEM, BUT HE HAS TO LEAVE NOW. FURTHER ISSUES THAT NATIVIDAD REPORTED WILL BE CONVEYED VERBALLY TO THE ULTRASOUND SPECIALIST.
[2019-07-04 16:23] LABS: % SATURATION 18 % (20-39); IRON 47 ug/dL (50-170); TIBC 262 ug/dL (250-450)
[2019-07-04 16:50] LABS: FOLIC ACID 13.5 ng/mL (8.6-58.9)
--- NOTE | 2019-07-04 20:05 | NUR ---
PATIENT ALERT AND ORIENTED AND COOPERATIVE WITH PLAN OF CARE. BP ELEVATED AND CASEY NOTIFIED AND TREATED THROUGHOUT THE DAY. MIDLINE DOES NOT DRAW BLOOD BUT FLUSHES WELL. PATIENT HAS HEADACHE TREATED WITH TYLENOL. FRIEND INDICATED PRIOR TO ADMIT, PATIENT DRINKS LOTS OF COFFEE AND SOFT DRINKS WITH CAFFENINE.
[2019-07-05 01:06] VITALS: BP 131/64
--- NOTE | 2019-07-05 02:56 | NUR ---
ASSUMED CARES AT 1900. PT AWAKE, ALERT AND ORIENTED*4. C/O HEADACHE, TYLENOL ADMINISTERED NEEDED. BP ELEVATED, SBP >200, NOC INTERNATIONAL BANK MANAGER CONTACTED AND ORDERS RECEIVED, HYDRALAZINE 50MG + CLONIDINE 0.2 AND SCHEDULED METOPROLOL ADMINISTERED. RECHECKED BP AFTER 1HR, 125/68 AND HR 62. ALL OTHER VITALS STABLE. PT UP WITH SBA, GB AND WALKER AND TOLERATED WELL. SLEPT WELL THROUGH THE NOC. Q1H VISUAL CHECKS. CALL LIGHT WITHIN REACH. FALL PRECAUTIONS IN PLACE
[2019-07-05 10:21] VITALS: BP 113/89
--- NOTE | 2019-07-05 13:38 | NUR ---
team meeting, with hh (nursing, st, ot,pt, sw). pt daughter to come in from [place] for family training. re team next week.
[2019-07-05 19:20] VITALS: BP 141/63
--- NOTE | 2019-07-05 21:02 | NUR ---
ASSUMED CARE OF PT AT 0715. PT IS A&OX4. AT APPROXIMATELY 0830. ST INFORMED THIS NURSE THAT PT WAS REPORTING SOB AND APPEARED TO BE IN OBVIOUS DISTRESS. NURSE IMMEDIATELY ASSESSED PT WHO WAS SITTING IN CHAIR, OBVIOUS INCREASED WOB, TACHYPNIC AT 28 RESP PER MINUTE, CLEAR BREATH SOUNDS BILATERALLY IN ALL LOBES, HEART RATE IRREGULAR WITH NORMAL RATE. SPO2 READING DECREASED FROM 98% ON ROOM AIR TO 91% ON ROOM AIR. PT DENIED CHEST PAIN, AND STATED TO NURSE "I JUST FEEL LIKE I CAN'T CATCH MY BREATH". WITHIN LESS THAN 5 MINUTES PT HAD RETURNED TO BASELINE WITH SLIGHTLY IRREGULAR HEART RATE. JIAN NOOFRE ASSESSED PT SHORTLY AFTER AND ORDERS GIVEN FOR RT AND BREATING TX. SPECIFICATION WRITER CASEY STREET GAVE ORDERS FOR TROPONIN AND EKG. CARDIOLOGY CONSULTED AND ELEVATED TROPONIN LEVEL REPORTED TO CARDIOLOGY NURSE. NO FURTHER ORDERS AT THIS TIME. PT REPORTED THAT SHE FELT ABLE TO PARTICIPATE IN SCHEDULED THERAPIES FOLLOWING EVENT AND NURSING COUNSELED PT THAT IF SHE EXPERIENCED FURTHER EVENTS OR HAD CHEST PAIN, SOB, DIZZINESS, OR NAUSEA TO STOP ACTIVITY AND NOTIFY NURSING. DUE TO PT INCREASED BLOOD PRESSURE PT RESTRICTED TO ONE SMALL CUP OF COFFEE PER DAY BY NURSING STAFF. PT EDUCATED ABOUT RESTRICTION AND AGREES TO COMPLY WITH RESTRICTION. MIDLINE TO THE STORM FLUSHES APPROPRAITELY, DRESSING IS C/D/I, SITE W/O REDNESS, EDEMA, DRAINAGE, OR WARMTH. REPORTED HEADACHE IN AFTERNOON, BUT PARTICIPATED IN SCHEDULED THERAPIES. FALL PRECAUTIONS IN PLACE AND NURSING WILL CONTINUE TO MONITOR.
--- NOTE | 2019-07-06 03:31 | NUR ---
PT ALERT AND ORIENTED X 4. AMB TO BR WITH WALKER AND ASSIST X 1 WITHOUT DIFFICULTY. LEFT MIDLINE INTACT. PT C/O DIFFICULTY SLEEPING. MARIO KNAPP NP NOTIFIED WITH ORDERS RECEIVED. MELATONIN GIVEN ORDERED. PT APPEARS TO BE SLEEPING ON HOURLY ROUNDS.
[2019-07-06 08:10] VITALS: BP 186/86
--- NOTE | 2019-07-06 15:05 | NUR ---
Following for d/c planning needs. Spoke with pt's daughter Li by phone. She said she had been living with [facility] at [facility], but had to [facility] Li said she spoke with Vera in [facility]. Vera said she will need a letter from the physician stating that pt requires 24 hour supervision on discharge, and daughter will need to stay with pt to provide that supervision. Called Vera at [facility] ([phone]) with no response. Will continue to try to call Vera and fax requested letter. Dtr said she will probably not be back into [place] area until 07/11 or 07/12, but will be able to come into hospital for training prior to patient's discharge.
[2019-07-06 19:35] VITALS: BP 166/79
--- NOTE | 2019-07-06 20:13 | NUR ---
ASSUMED CARE OF PT AT 0715. PT IS A&OX4 AND VITAL SIGNS ARE STABLE. PT REPORTED HAVING GOOD SLEEP WITH PO MELATONIN DURING NEWSPAPER VENDOR. CHILD WELFARE WORKER GAVE ORDER FOR MELATONIN AT NIGHT. BLOOD PRESSURE ELEVATED, BUT MANAGED WITH PO MEDICAITONS. MIDLINE TO LEFT UPPER ARM REMOVED PER PROTOCOL. PT PARTICIPATED IN SCHEDULED THERAPIES. FALL PRECAUTIONS IN PLACE AND NURSING WILL CONTINUE TO MONITOR.
--- NOTE | 2019-07-07 04:16 | NUR ---
ASSUMED CARE AT APPROX 1900 EVENING 07/06. PT ALERT AND ORIENTED X4, APPROPRIATE AND COOPERATIVE. PT HAS DENIED COMPLAINTS. PT TOOK HS MEDS TOLERATING WELL. ROOM AIR. PT APPEARS TO BE SLEEPING SOUNDLY WITH HOURLY ROUNDING CHECKS. BED ALARM ON AND CALL LIGHT IN REACH. WILL CONTINUE TO MONITOR.
[2019-07-07 07:35] VITALS: BP 189/76
--- NOTE | 2019-07-07 08:23 | EKG ---
[address] [address] ELECTROCARDIOGRAM REPORT Name: BIPIN RICCI Room #: 512-P ADM IN M.R.#: [id number] Admission: 07/02/19 Attend Phys: Bradly Garcia MD Discharge: Date of : 52 Report #: [id number] THIS REPORT FOR: //name// [facility] Test Date: 2019-07-05 Test Time: 12:11:51 Pat Name: BIPIN RICCI Department: Room: 512 Gender: F Melter Assistant: Danielle SHRESTHA : 1950 Requested By: Marisol Robison Order Number: [id number] MD: Torsten Carlos Measurements Intervals [place] Rate: 58 P: 39 IL: 117 QRS: -2 QRSD: 88 T: 242 QT: 447 QTc: 440 Interpretive Statements Sinus rhythm Borderline short IL interval Probable LVH with secondary repol abnrm Compared to ECG 06/29/2019 15:03:38 Myocardial infarct finding no longer present T-wave abnormality no longer present Possible ischemia no longer present Electronically Signed On 07-07-2019 8:23:40 CDT by Torsten Carlos [email or web address] <ELECTRONICALLY SIGNED> By: Torsten Carlos MD 07/07/19 0823 1211 1211 Torsten Carlos MD /EPI
--- NOTE | 2019-07-07 08:40 | EKG ---
[address] [address] ELECTROCARDIOGRAM REPORT Name: BIPIN RICCI Room #: 512-P ADM IN M.R.#: [id number] Admission: 07/02/19 Attend Phys: Bradly Garcia MD Discharge: Date of : 52 Report #: [id number] THIS REPORT FOR: //name// [facility] Test Date: 2019-07-07 Test Time: 08:35:41 Pat Name: BIPIN RICCI Department: Room: 512 Gender: F Sound Ranging Crewmember: Danielle SHRESTHA : 1950 Requested By: Torsten Carlos Order Number: [id number] MD: Torsten Carlos Measurements Intervals [place] Rate: 62 P: 62 MD: 125 QRS: -1 QRSD: 88 T: 180 QT: 419 QTc: 426 Interpretive Statements Sinus rhythm LVH with secondary repolarization abnormality Compared to ECG 07/05/2019 12:11:51 No significant changes Electronically Signed On 07-07-2019 8:40:24 CDT by Torsten Carlos [email or web address] <ELECTRONICALLY SIGNED> By: Torstne Carlos MD 07/07/19 0840 4 4 MD SARAHI Cui
--- NOTE | 2019-07-07 13:51 | NUR ---
ej spoke with the [facility], , fax # [phone] " will send form for pt and for dr to fill out and letter is helpful to get this approved, spoke with margy collins yesterday"/ophelia, this will need to be completed to have living in care for letter, ophelia is going to fax forms to [phone]. will cont following as needed for dc needs.
--- NOTE | 2019-07-07 14:35 | NUR ---
Nutrition: Pt seen for early follow up. On a mechanically altered/chopped diet with Magic Cup supplements BID. Pt was found to have met severe malnutrition criteria earlier in stay. Continues to eat extremely well for her size. Averaging close to 60% of meals (many meals ranging 50-70% for intakes). She feels she is even eating a little more here than what she was at home. Does not eat large portions. Thus, encouraged snacks between meals from the floor such as yogurt cups, peanut butter for energy dense kcals. Plan to add yogurt serving to daily breakfast, plus continue Magic Cups BID as pt is consuming. Change to low nutrition risk d/t ongoing consistent po levels, improved appetite, pt liking the food, and new intervention in place. Last BM 07/03, but pt on scheduled bowel regimen (plus prn). See once weekly now.
--- NOTE | 2019-07-07 15:52 | NUR ---
I have reviewed the documentation by DIEUDONNE ASCENCIO from 07/07/19 to 07/07/19 and I concur with it. CHRISTIAN CLAYTON, PT, DPT
[2019-07-07 20:25] VITALS: BP 178/86
--- NOTE | 2019-07-07 20:40 | NUR ---
ASSUMED CARE OF PT AT 0715. PT IS A&OX4 BLOOD PRESSURE ELEVATED 189/76 THIS AM , PRN PO MEDICAITON GIVEN FOLLOWING SCHEDULED MEDICATIONS WHEN PT REPORTED TO THERAPY THAT SHE HAD HEADACHE AND VISION CHANGES BP 206/105 HR 76. BLOOD PRESSURE RECHECKED 1 HOUR LATER AND WAS 157/96 WITH HR 61. PT ABLE TO PARTICIPATE IN SCHEDULED THERAPIES AFTER BLOOD PRESSURE MANAGED. CLONIDINE PATCH ORDERS GIVEN AND APPLIED TO PT. NO FURTHER REPORTS OF HEADACHE OR VISION CHANGES THIS SHIFT. PT NPO AFTER MIDNIGHT. FALL PRECAUTIONS IN PLACE AND NURSING WILL CONTINUE TO MONITOR.
--- NOTE | 2019-07-08 03:27 | NUR ---
PT ALERT AND ORIENTED X 4. AMB TO BR WITH ASSIST X 1 WITHOUT DIFFICULTY. PT NPO AFTER MIDNIGHT FOR RENAL DOPPLER. PT C/O PAIN IN HER BACK. STATED BED IS UNCOMFORTABLE. MELATONIN GIVEN AT HS FOR SLEEP. PT APPEARS TO BE SLEEPING ON HOURLY ROUNDS.
[2019-07-08 05:25] VITALS: BP 156/74
[2019-07-08 08:45] VITALS: BP 200/81
[2019-07-08 10:15] VITALS: BP 162/69
--- NOTE | 2019-07-08 14:36 | NUR ---
cm called ophelia 1 x 2 today rt never got form for pt and MD to fill out for her daughter to stay with her 01/06 supervision, medication and bills management. left message [phone], fax # [phone]. will cont following as needed for dc needs. pt friends mikki marroquin.
--- NOTE | 2019-07-08 15:16 | NUR ---
ASSUMED CARES AT 0700. PT AWAKE, ALERT AND ORIENTED *4. C/O HEADACHE, PAIN MEDICATION ADMINISTERED. PT BP ELEVATED TO SBP 200, BP LOWERING MEDS ADMINISTERED AND HOSPITALIST NOTIFIED. PT TEACHING ON SMOKING CESSATION AND LIMITING CAFFEINE INTAKE COMPLETED WITH PT AND SHE VERBALISED UNDERSTANDING. PT UP WITH 1 SBA, GB AND WALKER AND TOLERATED WELL. MADE LUNCH WITH OT. PARTICIPATED WITH THERAPY AND CONTINUES TO PROGRESS TOWARDS HER GOALS. Q1H VISUAL CHECKS. CALL LIGHT WITHIN REACH. FALL PRECAUTIONS IN PLACE.
[2019-07-08 15:26] VITALS: BP 167/75
--- NOTE | 2019-07-08 17:04 | NUR ---
I have reviewed the documentation by DIEUDONNE ASCENCIO from 07/08/19 to 07/08/19 and I concur with it. TRAV GRIJALVA, AMADOT
[2019-07-08 19:28] VITALS: BP 173/73
[2019-07-08 21:52] VITALS: BP 145/71
--- NOTE | 2019-07-09 02:39 | NUR ---
assumed care at approx 1900 evening 07/08. pt in bed at change of shift dozing off and on. pt awoke easily for hs meds and took with no problems. pt given Tylenol for headache pain and has been sleeping soundly since approx 0. pt still asleep soundly at present. bed alarm on and call light in reach. will continue to monitor.
[2019-07-09 05:58] LABS: ABSOLUTE NEUTROPHILS 4.2 thou/uL (1.4-8.2); BASOPHILS 1.1 % (0.0-2.0); HEMATOCRIT 28.7 % (37.0-47.0); HEMOGLOBIN 9.7 gm/dL (12.0-15.0); LYMPHOCYTES 25.4 % (24.0-44.0); MCH 33.6 pg (26.0-34.0); MCHC 33.7 g/dL (28.0-37.0); MCV 99.6 fL (80.0-100.0); MONOCYTES 8.3 % (1.0-8.0); PLATELET COUNT 217 thou/uL (150-400); POLYS 62.2 % (36.0-66.0); RBC 2.88 mil/uL (4.20-5.00); RDW 14.7 % (10.5-14.5); WBC 6.7 thou/uL (4.0-11.0)
[2019-07-09 06:11] LABS: CALCIUM 8.8 mg/dL (8.5-10.1); MAGNESIUM 1.9 mg/dL (1.8-2.4); POTASSIUM 4.5 mmol/L (3.5-5.1)
[2019-07-09 10:14] VITALS: BP 185/79
--- NOTE | 2019-07-09 16:29 | NUR ---
ASSUMED CARES AT 0700. PT AWAKE, ALERT AND ORIENTED *4. C/O HEADACHE, PAIN MEDICATION ADMINISTERED NEEDED. BP ELEVATED THIS AM 172/73, BP LOWERING MEDS ADMINISTERED, CLONIDINE PATCH ON RIGHT UPPER ARM. UP WITH 1 SBA GB AND WALKER AND TOLERATED WELL. CONTINUES TO PARTICIPATE IN ALL THERAPIES AND PROGRESSES TOWARDS DC GOALS. Q1H VISUAL CHECKS. CALL LIGHT WITHIN REACH. FALL PRECAUTIONS IN PLACE
[2019-07-09 19:30] VITALS: BP 174/84
--- NOTE | 2019-07-09 23:41 | NUR ---
PT ASSESSMENT COMPLETED. VSS MONITORED. MEDS GIVEN ORDERED AND TOLERATED. PRN PAIN AND SLEEP MED HELPFUL. FALL PRECAUTIONS IN PLACE. TURNED OVER PT CARE TO MICHAEL RYAN AT 2300.
--- NOTE | 2019-07-10 02:35 | NUR ---
PT ALERT AND ORIENTED X 4. C/O BACK PAIN. TYLENOL GIVEN AT HS WITH PARTIAL PAIN RELIEF VERBALIZED. BED ALARM ON FOR SAFETY. PT APPEARS TO BE SLEEPING ON HOURLY ROUNDS.
--- NOTE | 2019-07-10 05:49 | NUR ---
PT STATES SHE SLEPT WELL TONIGHT. UP TO BR WITH ASSIST X 1 WITHOUT DIFFICULTY. BP 176/83 THIS MORNING. PRN HYDRALAZINE GIVEN ORDERED.
[2019-07-10 07:45] VITALS: BP 162/76
--- NOTE | 2019-07-10 16:14 | NUR ---
ASSESSMENT CHARTED. PT ALERT AND ORIENTED. DENIED HAVING PAIN OR DISCOMFORT. NO CONCERNS AT THIS TIME. CHECKED FREQUENTLY AND NEEDS MET. WILL CONTINUE TO MONITOR.
[2019-07-10 19:45] VITALS: BP 152/72
--- NOTE | 2019-07-11 00:57 | NUR ---
PT ALERT AND ORIENTED X 4. AMB TO BR WITH GAIT BELT AND ASSIST X 1 WITHOUT DIFFICULTY. C/O HEADACHE. ADEQUATE PAIN RELIEF WITH TYLENOL. BP 152/72 AT START OF SHIFT. BED ALARM ON FOR SAFETY. PT APPEARS TO BE SLEEPING ON HOURLY ROUNDS.
[2019-07-11 07:45] VITALS: BP 151/70
--- NOTE | 2019-07-11 10:20 | NUR ---
ASSUMED CARES AT 0700. PT AWAKE, A/O*4. C/O HEADACHE, PAIN MEDICATION ADMINISTERED ORDERED. C/O BLURRY VISION UPON STANDING WITH PHYSICAL THERAPY WHICH RESOLVED QUICKLY, VITALS REMAINED STABLE. WILL CONTINUE TO MONITOR. PT UP WITH SBA, GB AND WALKER. Q1H VISUAL CHECKS. CALL LIGHT WITHIN REACH. FALL PRECAUTIONS IN PLACE
--- NOTE | 2019-07-11 15:39 | HC ---
[facility] [address] [place] [address] CONSULTATION Name: BIPIN RICCI Room #: 512-P [facility] IN M.R.#: [id number] Admission: 07/02/19 Attend Phys: Bradly Garcia MD Discharge: Date of : 52 Report #: [id number] THIS REPORT FOR: //name// CC: Katerina Garcia DATE OF SERVICE: 07/09/2019 NEUROBEHAVIORAL STATUS EXAM ATTENDING PHYSICIAN: Bradly Garcia M.D. FISH DRESSING MACHINE FEEDER: Stew Boyd, PhD. 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 Her assessment includes balance deficits with decreased functional mobility, mild right-sided coordination deficits, left-sided hemianopsia, uncontrolled hypertension, COPD, tobacco abuse, hepatitis C, seizure disorder and medication noncompliance. She is reported to have been living independently in her own home when she had presented with stroke-like symptoms. She initially presented with a dense left hemianopsia that improved utilizing TPA. Neuropsychological consultation was requested to provide assistance in the assessment of cognitive and emotional status and to provide recommendations and services. Prior to this most recent hospitalization, she was living in an independent apartment. She is with 3 children. Her children are reported to live outside the [place] area. The patient has completed the eleventh grade. 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 She indicated having discontinued driving several years ago because she was having difficulty with memory and forgetting directions while driving. TECHNIQUES UTILIZED: Clinical interview, review of medical records, staff consultation and behavioral observation, mini status exam 2 standard version, clock drawing and verbal fluency assessment. EXAMINATION FINDINGS: The patient was alert and cooperative with the assessment. She accurately described events surrounding her admission. There is no evidence of aphasia. Her thoughts are logical and goal oriented. There is no evidence of thought disorder. She does not report auditory or visual hallucinations. Her symptoms are reported to include fatigue, intermittent emotional lability and difficulty with sleep. Intermittent periods of crying have been ongoing for several years. Decreased onset of sleep is described as [facility] [address] [place] [address] CONSULTATION Name: BIPIN RICCI [place] Room #: 512-P [facility] IN M.R.#: [id number] Admission: 07/02/19 Attend Phys: Bradly Garcia MD Discharge: Date of : 52 Report #: [id number] related to being awakened during the night for medical tests. Her performance on the MMSE 2 brief version was in the borderline range with a T score of 32 and percentile rank of 4. She was 3/3 for initial registration, 4/5 for orientation to time, 5/[address] and 0/3 for immediate recall of 3 items after a brief time delay and distraction. Her performance on the MMSE 2 standard version improved to a raw score of 24 of 30 with a T score of 43 and percentile rank of 24. She was 4/5 for serial sevens, 2/2 for naming, 1/1 for repetition, 3/3 for auditory comprehension. She could read and follow single command and write a sentence. The patient was unable to accurately copy a simple geometric design. Clock drawing is within normal limits. Letter fluency was in the average range with a raw score of 26, T score of 53 and percentile rank of 62. Category fluency was in the borderline range with a raw score of 26, T score of 32 and percentile rank of 4. Overall, total fluency was in the low average range with a T score of 42 and percentile rank of 21. The patient is presenting with variability in cognitive functioning that includes deficits in immediate memory and visual spatial construction. Inconsistency in verbal fluency can often be seen with executive dysfunction. Visual spatial deficits are also suggested. 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 Persistent depressive disorder (dysthymia). Tobacco use disorder. RECOMMENDATIONS: Treatment program for depression that includes the use of an antidepressant medication and psychotherapy. A smoking cessation program is also indicated. The patient will likely require assistance in the management of medication, finances and nutrition upon discharge to insure safety. Her current recovery from the stroke can be used to assist her with life style changes that include smoking cessataion. Thank you very much for allowing me to provide the consultation on this patient. <ELECTRONICALLY SIGNED> By: Stew Boyd, PhD 07/11/19 1539 [id number] Stew Boyd, PhD /nt
[2019-07-11 18:20] VITALS: BP 142/68
[2019-07-11 19:14] VITALS: BP 144/69
--- NOTE | 2019-07-12 01:54 | NUR ---
assumed care at approx 1900 evening 07/11. pt lying in bed dozing off and on at change of shift. pt awoke for hs meds and assist up to bathroom to void before falling asleep. pt appropriate and cooperative. pt appears to be sleeping soundly with hourly rounding checks. bed alarm on and call light in reach. will continue to monitor.
[2019-07-12 08:45] VITALS: BP 159/65
--- NOTE | 2019-07-12 13:05 | NUR ---
team meeting, recommendation [facility] (pt, ot, st, nursing). daughter to assist with medication and bills. will needs 24hr supervision.
[2019-07-12 20:00] VITALS: BP 170/69
--- NOTE | 2019-07-13 03:48 | NUR ---
assumed care at approx 1900 evening 07/12. pt alert and oriented x4, pleasant and cooperative. pt up to bathroom to void with 1 standby assist. pt took hs meds with water tolerating well. pt appears to be sleeping soundly with hourly rounding checks. bed alarm on and call light in reach. will continue to monitor.
[2019-07-13 07:50] VITALS: BP 150/69
--- NOTE | 2019-07-13 10:42 | NUR ---
ASSUMED CARE AT 0700. PATIENT IS ALERT AND ORIENTED X4. CLARK'S, BUCKET OPERATOR ARE EQUAL. LUNGS ARE CLEAR. ABD IS SOFT WITH BSX4. UP TO THE BATHROOM WITH SBA AND GAIT BELT TO VOID ANJALI COLORED URINE. UP IN CHAIR FOR MEALS. FALL AND SAFETY PROTOCOLS IN PLACE. DENIES ANY PAIN AT THIS TIME. CONTINUES TO PROGESS TOWARDS D/C GOALS. WILL CONTINUE TO MONITER.
[2019-07-13 12:37] VITALS: BP 150/69
--- NOTE | 2019-07-13 14:57 | NUR ---
NAN reviewed chart and spoke with nursing. Pt will discharge home tomorrow with HH services. SW received fax from pt's apt complex needing pt's signature, in order to allow pt's dtr, Li, to stay with her in her apt. NAN met with pt at bedside to review forms. Pt completed forms. Pt states that her dtr is en route to from [place] via bus. Pt's dtr should be arriving later today. [facility] HH providers discussed with pt. No preference voiced. Dr. Garcia to follow pt for HH orders until pt goes to see a new PCP. NAN scheduled pt an appt with Dr. Soto for Thursday, 07/29 at 1415. This information placed in pt's discharge summary. project planner sent HH referral to [facility]. SW received call from Caitlin at [facility], who states they are able to accept pt. [facility] liaison to meet with pt later today. Contact info for [facility] placed in pt's discharge summary. Pt states she will have transportation home tomorrow. NAN faxed completed forms to pt's apt complex. Received confirmation. NAN is following to finalize discharge tomorrow.
--- NOTE | 2019-07-13 16:01 | NUR ---
I have reviewed the documentation by DIEUDONNE ASCENCIO from 07/13/19 to 07/13/19 and I concur with it. CHRISTIAN CLAYTON, PT, DPT
[2019-07-13 19:28] VITALS: BP 168/79
--- NOTE | 2019-07-14 03:48 | NUR ---
ASSESSMENT: PT REMAIN ALERT AND ORIENT TIMES FOUR. CALLS OUT APPROPRIATELY FOR SBA TO THE BR AND BACK TO BED. POSSIBLE DC IN THE AM. PT IS LOOKING FORWARD TOWARDS GOING HOME. DENIES HUFF THUS FAR. VSS, AFEBRILE. GOOD PROGRESS TOWARDS DC GOALS. WILL CONTINUE TO MONITOR.
[2019-07-14 08:14] VITALS: BP 173/61
--- NOTE | 2019-07-14 09:39 | H ---
[facility] [place] [address] HISTORY AND PHYSICAL Name: BIPIN RICCI Room #: 512-P ADM IN M.R.#: [id number] Admission: 07/02/19 Attend Phys: Bradly Garcia MD Discharge: Date of : 52 Report #: [id number] THIS REPORT FOR: //name// CC: Katerina Garcia DATE OF SERVICE: 07/02/2019 HISTORY AND PHYSICAL/POST-ADMISSION PHYSICIAN EVALUATION HISTORY OF PRESENT ILLNESS: The patient is a 68-year-old female who originally presented to [facility] on 06/29/2019 with slurred speech and inability to ambulate. Stroke workup was positive. She was noted to have a CVA with radiographic findings including an MRI showing a tiny left parietal. Diffusion abnormality consistent with a parietal infarct. She did have uncontrolled hypertension. Neurology has been closely involved. A small CVA noncompliance as she was actively smoking prior to admission as well as probable hypertensive encephalopathy. She was given TPA and the post-TPA protocol. She had prior dense left hemianopsia, which improved. She has continuing functional deficits and these would be assessed and work with the acute rehab cowan. She has now been admitted for acute in-hospital inpatient rehabilitation. PAST MEDICAL HISTORY: Includes cancer, hypertension, lung disease, seizures, bowel obstruction, ulcers, hepatitis C, endometrial CA, TIA. PAST SURGICAL HISTORY: Includes appendectomy, cholecystectomy, colon resection, hysterectomy, biliary stents, and right breast lumpectomy. FAMILY HISTORY: Heart disease, diabetes, hypertension, lung disease. MEDICATIONS: Please see the full medication listing. ALLERGIES: DILANTIN, ASPIRIN, AND CODEINE. HABITS: No history of alcohol or drug abuse. She is a cigarette smoker as noted above. SOCIAL HISTORY: She lives alone in an apartment, no steps. Did not utilize gait aids. Denied fall, was independent with ADLs and IADLs, right-handed. REVIEW OF SYSTEMS: She did not offer any complaints of chest pain, shortness of breath, abdominal discomfort. No dizziness, fever, chills, headaches. No bowel or bladder changes. No functional extremity pain complaints. Some shortness of breath with activity with her chronic smoking. PHYSICAL EXAMINATION: GENERAL: Small statured, thin 68-year-old white female, [address] [address] HISTORY AND PHYSICAL Name: BIPIN RICCI [place] Room #: 512-P [facility] IN ..#: [id number] Admission: 07/02/19 Attend Phys: Bradly Garcia MD Discharge: Date of : 52 Report #: [id number] appeared somewhat older than stated age. VITAL SIGNS: Last recorded temperature 36.4, pulse 53, respirations 22, blood pressure 159/67. The patient was alert. Facies were symmetric. HEENT: Appeared to be benign. She does appear to have improvement of the visual field decreased as noted by Neurology. CHEST: Sounded clear to auscultation. CARDIOVASCULAR: Regular rate and rhythm. ABDOMEN: Bowel sounds positive, nontender. GENITOURINARY AND RECTAL: Deferred. NEUROLOGIC: Functional range of motion of both upper extremities. Strength is grade 4-/5. DTRs are trace to 1. No obvious slurring of speech. No local facial droop. She might have some mild right-sided coordination deficits. Strength is a grade 4/5. She does have some functional deficits noted, especially with mobility, needing standby assistance with sit to stand and is min assist short distance ambulation. She does have some lateral deviations. She is currently on nasal prong O2. Requiring up to mod assist for basic balance. ASSESSMENT: A 68-year-old white female with the following problem list: 1. Left parietal cerebrovascular accident. 2. Balance deficits with decreased functional mobility. 3. Mild right-sided coordination deficits. 4. Left-sided hemianopsia, appears improved. 5. Uncontrolled hypertension. 6. Chronic obstructive pulmonary disease. 7. Tobacco abuse. 8. Hepatitis C. 9. Seizure disorder. 10. Medication noncompliance. PLAN: The patient is admitted for acute in-hospital inpatient rehabilitation. From a postadmission physician evaluation perspective, there are no relevant changes since the preadmission screening. Please see the above review of prior and current medical and functional conditions and comorbidities. Please see the patient's previous and current functional status. As far as risk of complications, the patient has multiple medical comorbidities as noted above. The initial plan of care involves the interdisciplinary acute inpatient rehabilitation program. Measurable functional goals would be for the patient to become modified independent with transfers, mobility and ADLs as well as cognition, communication, visual perceptual issues, so she can return back to her home setting. Prognosis is reasonably good with estimated length of stay at least 10-14 days and potentially longer if warranted. Potential barriers would include her multiple medical comorbidities and decreased functional status. The patient meets diagnostic criteria for an acute in-hospital inpatient rehabilitation stay. She meets the medical necessity criteria. She does have [facility] [address] [place] [address] HISTORY AND PHYSICAL Name: BIPIN RICCI Room #: 512-P ADM IN M.R.#: [id number] Admission: 07/02/19 Attend Phys: Bradly Garcia MD Discharge: Date of : 52 Report #: [id number] the tolerance for therapies and has appropriate discharge goals back to the home setting. <ELECTRONICALLY SIGNED> By: Bradly Garcia MD 07/14/19 0939 1514 1534 Bradly Garcia MD /PMT
[2019-07-14] MEDS ORDERED: HYDRALAZINE 5050 MG PO (10:01)
[2019-07-14] MEDS ORDERED: LOPRESSOR50 PO (10:01)
[2019-07-14] MEDS ORDERED: MELATONIN5 M1 PO (10:01)
[2019-07-14] MEDS ORDERED: CLOPIDOGREL75 MG PO (10:01)
[2019-07-14] MEDS ORDERED: VITAMIN B-12500 MCG PO (10:01)
[2019-07-14] MEDS ORDERED: NORVASC10 MG PO (10:01)
[2019-07-14] MEDS ORDERED: TYLENOL325 MG PO (10:01)
[2019-07-14] MEDS ORDERED: PEPCID20 MG PO (10:01)
[2019-07-14] MEDS ORDERED: ATORVASTATIN CA10 MG PO (10:01)
[2019-07-14] MEDS ORDERED: MIRALAX17 GM PO (10:01)
[2019-07-14] MEDS ORDERED: ACCUPRIL40 MG PO (10:01)
--- NOTE | 2019-07-14 11:01 | NUR ---
ASSUMED CARES AT 0700. PT AWAKE, ALERT AND ORIENTED*4. C/O HEADACHE, ACETAMINOPHEN ADMINISTERED. BP 173/61, BP LOWERING MEDS ADMINISTERED PER ORDER. ALL OTHER VITALS REMAIN STABLE. PT UP WITH 1 SBA GB AND TOLERATED WELL. DC TRAINING TO BE COMPLETED WITH PT AND BOYFFRIEND UPON DC. Q1H VISUAL CHECKS. CALL LIGHT WITHIN REACH. FALL PRECAUTIONS IN PLACE
--- NOTE | 2019-07-14 11:55 | NUR ---
patient to dc home today, dp sent dc paperwork to [facility] fax [phone]. DP called and spoke to Marcia at [facility] to let her know paperwork for dc was faxed and patient to or today.
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
== END 2019-07-14 14:55 | disposition home health service (06) | DRG 65 ==
LOC: ENTRNSPT 07-14 14:03 → EDTRNSPTSTS 07-14 14:05
PROVIDERS: Nurse Practitioner; ADMIT Physical Medicine & Rehabilitation
DX: I63.9 Cerebral infarction, unspecified (principal); E46 Unspecified protein-calorie malnutrition; Z68.1 Body mass index [BMI] 19.9 or less, adult; I10 Essential (primary) hypertension; J44.9 Chronic obstructive pulmonary disease, unspecified; G40.909 Epilepsy, unspecified, not intractable, without status epilepticus; B19.20 Unspecified viral hepatitis C without hepatic coma; H53.47 Heteronymous bilateral field defects; G31.84 Mild cognitive impairment of uncertain or unknown etiology; F32.9 Major depressive disorder, single episode, unspecified; Z96.49 Presence of other endocrine implants; E86.0 Dehydration; D64.9 Anemia, unspecified; D51.9 Vitamin B12 deficiency anemia, unspecified; D50.9 Iron deficiency anemia, unspecified; N19 Unspecified kidney failure; Z91.14 Patient's other noncompliance with medication regimen; Z90.49 Acquired absence of other specified parts of digestive tract; Z90.710 Acquired absence of both cervix and uterus; Z82.49 Family history of ischemic heart disease and other diseases of the circulatory system; Z83.3 Family history of diabetes mellitus; Z88.6 Allergy status to analgesic agent; Z88.8 Allergy status to other drugs, medicaments and biological substances
CPT/HCPCS: 10112

== ENCOUNTER 2019-10-18 10:51 | Inpatient (IN) | payer OTHER ==
[~2019-10-18] VITALS: Ht 152.4 cm; Wt 37.6 kg
[2019-10-18 10:51] VITALS: BP 209/97
[~2019-10-18 10:51] MED LIST changes: +ACCUPRIL40 MG PO; +HYDRALAZINE 5050 MG PO; +MELATONIN5 M1 PO; +MIRALAX17 GM PO; +TYLENOL325 MG PO; +VITAMIN B-12500 MCG PO
[2019-10-18 12:46] LABS: HCO3 21.7 mmol/L (22.0-26.0); PCO2 37.5 mmHg (35.0-45.0); PO2 66.7 mmHg (80.0-100.0); pH 7.381 (7.360-7.450); sO2 93.1 % (92.0-98.0)
[2019-10-18 12:47] LABS: APTT 24.5 Seconds (24.5-32.8); INR 1.1; PROTIME 11.1 Seconds (9.3-11.4)
[2019-10-18 13:32] LABS: ABSOLUTE NEUTROPHILS 6.3 thou/uL (1.4-8.2); EOSINOPHILS 4.8 % (0.0-3.0); HEMOGLOBIN 10.1 gm/dL (12.0-15.0); LYMPHOCYTES 13.9 % (24.0-44.0); MCHC 33.7 g/dL (28.0-37.0); MCV 97.9 fL (80.0-100.0); MONOCYTES 5.8 % (1.0-8.0); PLATELET COUNT 247 thou/uL (150-400); POLYS 74.5 % (36.0-66.0); RBC 3.06 mil/uL (4.20-5.00); RDW 13.8 % (10.5-14.5); WBC 8.5 thou/uL (4.0-11.0)
[2019-10-18 13:36] LABS: CREATININE 1.3 mg/dL (0.6-1.0); POTASSIUM 4.3 mmol/L (3.5-5.1)
[2019-10-18 13:43] LABS: ALBUMIN 3.2 g/dL (3.4-5.0); TOTAL BILIRUBIN 0.1 mg/dL (<0.1-1.0); TOTAL PROTEIN 5.9 g/dL (6.4-8.2)
[2019-10-18 15:48] VITALS: BP 173/91
[2019-10-18 17:01] VITALS: BP 187/96
[2019-10-18 19:30] VITALS: BP 156/87
[2019-10-18 23:58] VITALS: BP 110/64
[2019-10-19 03:31] VITALS: BP 104/58
--- NOTE | 2019-10-19 05:57 | NUR ---
PT CURRENTLY SLEEPING AND HAS MOST OF SHIFT. PT TOLERATED WALKING WITH STANDBY ASSIST TO BATHROOM THIS MORNING BUT OBVIOUS WEAKNESS. PT BP TRENDED DOWN FROM HER INITIAL ADMIT OF HTN CRISIS.
[2019-10-19 08:40] VITALS: BP 127/70
[2019-10-19 11:04] VITALS: BP 130/64
--- NOTE | 2019-10-19 12:32 | EKG ---
[address] [address] ELECTROCARDIOGRAM REPORT Name: BIPIN RICCI Room #: 364-P ADM IN M.R.#: [id number] Admission: 10/18/19 Attend Phys: Stew Soto MD Discharge: Date of : 52 Report #: [id number] THIS REPORT FOR: //name// [facility] ED Test Date: 2019-10-18 Test Time: 11:10:55 Pat Name: BIPIN RICCI Department: Room: 364 Gender: F Mapping Engineer: SERGEY : 1950 Requested By: Ekaterina Meier Order Number: [id number] MD: Torsten Carlos Measurements Intervals [place] Rate: 99 P: 84 LA: 176 QRS: 3 QRSD: 83 T: 89 QT: 375 QTc: 482 Interpretive Statements Sinus tachycardia Ventricular premature complex Compared to ECG 07/07/2019 08:35:41 Electronically Signed On 10-19-2019 12:32:33 BOXCAR WEIGHER by Torsten Carlos [email or web address] <ELECTRONICALLY SIGNED> By: Torsten Carlos MD 10/19/19 1232 1110 1110 Torsten Carlos MD /AJ
[2019-10-19 12:48] VITALS: BP 130/64
--- NOTE | 2019-10-19 16:33 | NUR ---
ASSUMED CARE 0700. ALERT X4,FROM HOME WITH DAUGHTER, HEADACHE PAIN MANAGED WITH MEDICATIONS, STAND BY ASSIST/STEADY GAIT. DISCHARGE Patient home with home health. revied home medications. meds sent to [facility]. reviewed dc paperwork includeing pt to follow up with pcp, and to take medications as directed. Iv and tele monitor removed.
--- NOTE | 2019-10-19 16:46 | NUR ---
INITIAL ASSESSMENT/DISCHARGE NOTE: REceived consult for discharge needs. SW reviewed chart and spoke with nursing and attending physician. Pt is medically stable for discharge home today. Pt states she is unable to afford medications. SW met with pt at bedside. Introduced role of SW. Pt is alert/orientated x 4. Pt states she lives in an apt with her dtr, Li. Prior to admission, pt was independent with ADLs. Pt has used [facility] in the past, and would like to use them again. Pt's PCP is Dr. Hoskins. Pt uses [facility] at [facility]. SW contact the pharmacy. PCP called in new scripts. Pt has 0 copay for meds. SW updated pt. MEds are ready to be picked up. Discharge orders written. SW faxed info and orders to [facility] and notified liaison. Contact info for HH placed in pt's discharge summary. Pt's friend to provide transportation home. No additional SW needs identiifed.
== END 2019-10-19 17:36 | disposition home health service (06) | DRG 78 ==
LOC: ER 10:51 → 3W 15:59 → EROBS 15:59 → 3W 16:38 → ENTRNSPT 10-19 16:12 → 3W 10-19 17:36
PROVIDERS: Nurse Practitioner; ADMIT Family Medicine
DX: I67.4 Hypertensive encephalopathy (principal); I16.1 Hypertensive emergency; R51 Headache; R56.9 Unspecified convulsions; J44.9 Chronic obstructive pulmonary disease, unspecified; R47.1 Dysarthria and anarthria; H53.8 Other visual disturbances; Z96.89 Presence of other specified functional implants; Z86.19 Personal history of other infectious and parasitic diseases; Z90.89 Acquired absence of other organs; Z90.49 Acquired absence of other specified parts of digestive tract; Z86.73 Personal history of transient ischemic attack (TIA), and cerebral infarction without residual deficits; Z91.14 Patient's other noncompliance with medication regimen; Z90.710 Acquired absence of both cervix and uterus; Z88.5 Allergy status to narcotic agent; Z88.8 Allergy status to other drugs, medicaments and biological substances; Z79.899 Other long term (current) drug therapy
CPT/HCPCS: 10879

== ENCOUNTER 2020-05-21 14:39 | Emergency (ER) | payer OTHER ==
[~2020-05-21] VITALS: Ht 152.4 cm; Wt 47.6 kg
[2020-05-21 15:18] LABS: ABSOLUTE NEUTROPHILS 4.6 thou/uL (1.4-8.2); BASOPHILS 0.8 % (0.0-2.0); EOSINOPHILS 4.3 % (0.0-3.0); HEMATOCRIT 33.2 % (37.0-47.0); HEMOGLOBIN 11.2 gm/dL (12.0-15.0); LYMPHOCYTES 17.1 % (24.0-44.0); MCHC 33.6 g/dL (28.0-37.0); MONOCYTES 9.1 % (1.0-8.0); PLATELET COUNT 215 thou/uL (150-400); POLYS 68.7 % (36.0-66.0); RBC 3.29 mil/uL (4.20-5.00); RDW 14.1 % (10.5-14.5); WBC 6.7 thou/uL (4.0-11.0)
[2020-05-21 15:26] LABS: ANION GAP 8 mmol/L (7-16); BUN 21 mg/dL (7-18); CHLORIDE 103 mmol/L (98-107); CO2 30 mmol/L (21-32); CREATININE 1.1 mg/dL (0.6-1.0); GLUCOSE 126 mg/dL (74-106); POTASSIUM 3.8 mmol/L (3.5-5.1); SODIUM 141 mmol/L (136-145)
[2020-05-21 15:35] LABS: TROPONIN-I <0.06 ng/mL (<0.06)
[2020-05-21] MEDS ORDERED: ASPIR-TRIN325 MG PO (15:41)
[2020-05-21 15:50] LABS: URINE BILIRUBIN NEGATIVE (Negative); URINE BLOOD NEGATIVE (Negative); URINE CLARITY CLEAR; URINE COLOR YELLOW; URINE GLUCOSE-RANDOM* NEGATIVE (Negative); URINE KETONES NEGATIVE (Negative); URINE LEUKOCYTES-REFLEX NEGATIVE (Negative); URINE NITRITE-REFLEX NEGATIVE (Negative); URINE PROTEIN (DIPSTICK) 2+ (Negative); URINE UROBILINOGEN 0.2 E.U./dl (0.2-1.0)
[2020-05-21 16:00] LABS: BACTERIA-REFLEX 1-9 Few /HPF (None Seen); SQUAMOUS 0-3 Few /LPF (0-3); URINE RBC None Seen /HPF (0-2); URINE WBC-REFLEX 0-5 Rare /HPF (0-5)
[2020-05-21 16:01] LABS: CASTS None Seen /LPF (None Seen); CRYSTALS None Seen /LPF (None Seen)
[2020-05-21] MEDS ORDERED: PROAIR HFA8.5 GM INH (17:51)
[2020-05-21] MEDS ORDERED: LEVAQUIN 500 M500 M3 PO (17:51)
[2020-05-21] MEDS ORDERED: PREDNISONE 20 M20 MG PO (17:51)
[2020-05-21 19:03] VITALS: BP 193/93
--- NOTE | 2020-05-22 07:51 | EKG ---
[facility] [place] [address] ELECTROCARDIOGRAM REPORT Name: BIPIN RICCI JEFF Room #: DEP [facility]..#: [id number] Admission: 05/21/20 Attend Phys: Discharge: 05/21/20 Date of : 52 Report #: [id number] THIS REPORT FOR: cc: Stew Soto MD, Neal A. MD Lundgren,Armando Schaffer MD [facility] ~ THIS REPORT FOR: //name// [facility] ED Test Date: 2020-05-21 Test Time: 15:20:18 Pat Name: BIPIN RICCI Department: Room: Gender: Reserves Clerk: jackieilmariela : 1950 Requested By: Pankaj Sawyer Order Number: [id number] MD: Armando Falcon Measurements Intervals [place] Rate: 88 P: 47 KS: 104 QRS: -20 QRSD: 87 T: 145 QT: 388 QTc: 470 Interpretive Statements Sinus rhythm Short KS interval LVH with secondary repolarization abnormality Baseline wander in lead(s) V2 Compared to ECG 10/18/2019 11:10:55 Sinus tachycardia no longer present Electronically Signed On 05-22-2020 7:51:26 CDT by Armando Falcon [email or web address] <ELECTRONICALLY SIGNED> By: Armando Falcon MD, [facility] 05/22/20 0751 1520 1520 Armando Falcon MD, FAC /EPI
== END 2020-05-21 19:03 | disposition home or self-care (01) ==
LOC: ER 14:39
PROVIDERS: Emergency Medicine
DX: J44.1 Chronic obstructive pulmonary disease with (acute) exacerbation (principal); M54.5 Low back pain; I11.0 Hypertensive heart disease with heart failure; I50.9 Heart failure, unspecified; F17.210 Nicotine dependence, cigarettes, uncomplicated; Z90.49 Acquired absence of other specified parts of digestive tract; Z90.710 Acquired absence of both cervix and uterus; Z79.899 Other long term (current) drug therapy; Z88.8 Allergy status to other drugs, medicaments and biological substances; Z88.6 Allergy status to analgesic agent; Z88.5 Allergy status to narcotic agent

== ENCOUNTER 2020-10-10 12:19 | Inpatient (IN) | payer OTHER, MEDICAID ==
[~2020-10-10] VITALS: Ht 152.4 cm; Wt 44.2 kg
[~2020-10-10 12:19] MED LIST changes: +ASPIR-TRIN325 MG PO; +LEVAQUIN 500 M500 M3 PO; +PROAIR HFA8.5 GM INH
[2020-10-10 12:27] VITALS: BP 142/109
[2020-10-10 13:21] LABS: ABSOLUTE NEUTROPHILS 6.2 thou/uL (1.4-8.2); EOSINOPHILS 0.4 % (0.0-3.0); HEMATOCRIT 35.6 % (37.0-47.0); HEMOGLOBIN 11.8 gm/dL (12.0-15.0); MCH 32.8 pg (26.0-34.0); MCHC 33.1 g/dL (28.0-37.0); MCV 99.1 fL (80.0-100.0); PLATELET COUNT 362 thou/uL (150-400); POLYS 70.6 % (36.0-66.0); RBC 3.59 mil/uL (4.20-5.00); RDW 15.7 % (10.5-14.5); WBC 8.8 thou/uL (4.0-11.0)
[2020-10-10 13:26] LABS: CALCIUM 9.9 mg/dL (8.5-10.1); CREATININE 1.3 mg/dL (0.6-1.0); POTASSIUM 3.9 mmol/L (3.5-5.1)
[2020-10-10 13:36] LABS: TOTAL BILIRUBIN 0.3 mg/dL (0.2-1.0); TOTAL PROTEIN 7.5 g/dL (6.4-8.2); TROPONIN-I 0.07 ng/mL (<0.06)
[2020-10-10 13:55] LABS: BE(vivo) -7.2 mmol/L (-2 to +3); HCO3 16.8 mmol/L (22.0-26.0); PO2 73.4 mmHg (80.0-100.0); pH 7.381 (7.360-7.450); sO2 94.8 % (92.0-98.0)
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
[2020-10-11 06:01] LABS: HEMATOCRIT 29.8 % (37.0-47.0); HEMOGLOBIN 9.9 gm/dL (12.0-15.0); MCH 32.7 pg (26.0-34.0); MCHC 33.1 g/dL (28.0-37.0); RBC 3.01 mil/uL (4.20-5.00); RDW 15.1 % (10.5-14.5); WBC 5.6 thou/uL (4.0-11.0)
[2020-10-11 06:23] LABS: CALCIUM 9.1 mg/dL (8.5-10.1); CREATININE 1.6 mg/dL (0.6-1.0); POTASSIUM 4.3 mmol/L (3.5-5.1)
--- NOTE | 2020-10-11 07:06 | EKG ---
[facility] [place] [address] ELECTROCARDIOGRAM REPORT Name: BIPIN RICCI JEFF Room #: 170-12 ADM IN M.R.#: [id number] Admission: 10/10/20 Attend Phys: Stwe Soto MD Discharge: Date of : 52 Report #: [id number] THIS REPORT FOR: cc: Stew Soto MD, Neal A. MD Santiago, Patrick MD [facility] ~ THIS REPORT FOR: //name// [facility] ED Test Date: 2020-10-10 Test Time: 13:02:13 Pat Name: BIPIN RICCI Department: Room: 170 Gender: F Windows Software Developer: Hermelinda : 1950 Requested By: Steve Corcoran Order Number: [id number] MD: Eladio Cason Measurements Intervals [place] Rate: 105 P: 78 MT: 116 QRS: -16 QRSD: 84 T: 118 QT: 352 QTc: 466 Interpretive Statements Sinus tachycardia Multiform ventricular premature complexes LVH with secondary repolarization abnormality Anterior Q waves, possibly due to LVH Compared to ECG 05/21/2020 15:20:18 Ventricular premature complex(es) now present Q waves now present Sinus rhythm no longer present Short MT interval no longer present Electronically Signed On 10-11-2020 7:06:22 DUE DILIGENCE COORDINATOR by Eladio Cason [email or web address] <ELECTRONICALLY SIGNED> By: Eladio Cason MD, [facility] 10/11/20 0706 01 130 Eladio Cason MD, [facility] /EPI
[2020-10-11 10:55] VITALS: BP 141/71
[2020-10-11 11:01] VITALS: BP 126/72
[2020-10-11] MEDS ORDERED: TRAZODONE HCL50 MG PO (11:55)
[2020-10-11] MEDS ORDERED: CARDIZEM CD240 M1 PO (11:55)
[2020-10-11] MEDS ORDERED: PROTONIX40 M2 PO (11:56)
[2020-10-11] MEDS ORDERED: COZAAR 25 MG TA25 M1 PO (11:56)
[2020-10-11] MEDS ORDERED: SPIRONOLACTONE25 MG PO (11:57)
[2020-10-11 15:29] VITALS: BP 135/69
--- NOTE | 2020-10-11 17:51 | NUR ---
assumed care of pt at 0700. pt alert and oriented, in no acute distress. on room air. vitals stable. up to bsc w/ 1 assist, remains weak. initiated iv abx. calls out appropriately. wcm.
[2020-10-11 19:39] VITALS: BP 123/59
--- NOTE | 2020-10-11 23:00 | NUR ---
PT WATCHING TV. LUNGS WHEEZES LOOSE COUGH. PT C/O UPPER BACK PAIN AND PROVIDER CONTACTED FOR PRN TYLENOL. PT PROVIDED HS SNACK. PT CALLS FOR ASSISTANCE WITH TRANSFERS. PT TALKED WITH SIGNIFICANT OTHER ON PHONE.
[2020-10-12 05:35] VITALS: BP 125/58
--- NOTE | 2020-10-12 16:06 | NUR ---
INITIAL ASSESSMENT: SW reviewed chart and spoke with nursing and attending physician. Pt was admitted from home due to CHF/acute respiratory failure. Pt placed in Enhanced Isolation due to COVID-19. Pt is afebrile and not requiring O2. Pt is on IV abx and IV steroids. Pt is on IV lasix. NAN placed call to pt's room. No answer. Per chart, pt lives at home with s/o. Pt has been to [facility] in the past for acute rehab. Pt has used [facility]. Pt's PCP is Dr. Soto. No weekend discharge planned. Therapy ordered to evaluate pt for discharge needs. NAN is following to assist as needed with discharge planning.
[2020-10-12 17:45] VITALS: BP 120/76
--- NOTE | 2020-10-12 19:47 | NUR ---
UP TO BEDSIDE COMMODE WITH STAND BY ASSIST. ON RA. PLEASANT WITH CARES,.
[2020-10-12 20:29] VITALS: BP 112/53
[2020-10-13 05:31] VITALS: BP 123/71
[2020-10-13 06:17] LABS: ABSOLUTE NEUTROPHILS 13.3 thou/uL (1.4-8.2); HEMATOCRIT 29.2 % (37.0-47.0); HEMOGLOBIN 9.6 gm/dL (12.0-15.0); LYMPHOCYTES 2.1 % (24.0-44.0); MCH 32.9 pg (26.0-34.0); MCHC 32.8 g/dL (28.0-37.0); MCV 100.5 fL (80.0-100.0); MONOCYTES 3.5 % (1.0-8.0); PLATELET COUNT 328 thou/uL (150-400); POLYS 94.4 % (36.0-66.0); RDW 15.7 % (10.5-14.5); WBC 14.1 thou/uL (4.0-11.0)
[2020-10-13 06:26] LABS: FIBRINOGEN 277.4 mg/dL (210-360); PROTIME 10.7 Seconds (9.3-11.4)
[2020-10-13 06:29] LABS: ALBUMIN 3.1 g/dL (3.4-5.0); CALCIUM 8.2 mg/dL (8.5-10.1); CREATININE 2.3 mg/dL (0.6-1.0); POTASSIUM 4.5 mmol/L (3.5-5.1); TOTAL BILIRUBIN 0.1 mg/dL (0.2-1.0); TOTAL PROTEIN 6.7 g/dL (6.4-8.2)
[2020-10-13 07:55] VITALS: BP 137/66
[2020-10-13 11:44] VITALS: BP 03/61
[2020-10-13 16:17] VITALS: BP 131/78
--- NOTE | 2020-10-13 17:40 | NUR ---
PATIENT CONT TO IMPROVE. RESPIRATIONS ARE NON LABORED. SHE HAD PAIN MED EARLIER AND IT WAS EFFECTIVE INCONTROLLING HER PAIN.
--- NOTE | 2020-10-14 02:16 | NUR ---
continues on room air, 98 %. she does get short of breath with getting up to the restroom. continues on iv fluids. her po pain medication is effective for controlling her pain. cooperative and pleasant.
[2020-10-14 03:58] VITALS: BP 148/82
[2020-10-14 05:28] LABS: ALBUMIN 2.9 g/dL (3.4-5.0); ANION GAP 15 mmol/L (7-16); BUN 62 mg/dL (7-18); CALCIUM 8.2 mg/dL (8.5-10.1); CHLORIDE 106 mmol/L (98-107); CO2 18 mmol/L (21-32); CREATININE 1.8 mg/dL (0.6-1.0); DIRECT BILIRUBIN < 0.1 mg/dL (<0.1-0.2); GLUCOSE 178 mg/dL (74-106); PHOSPHORUS 4.8 mg/dL (2.5-4.9); POTASSIUM 4.6 mmol/L (3.5-5.1); SGOT 17 U/L (15-37); SGPT 36 U/L (30-65); SODIUM 139 mmol/L (136-145); TOTAL BILIRUBIN 0.1 mg/dL (0.2-1.0); TOTAL PROTEIN 6.4 g/dL (6.4-8.2)
[2020-10-14 08:55] VITALS: BP 150/86
[2020-10-14 11:12] VITALS: BP 149/89
[2020-10-14 16:15] VITALS: BP 167/79
[2020-10-14 19:11] VITALS: BP 166/94
--- NOTE | 2020-10-14 19:29 | NUR ---
CONSULTED TO PLACE A MIDLINE FOR A PATIENT WITH NO ACCESS. A #4F MIDLINE PLACED PER HOSPITAL POLICY. 14CM. SECURED AND RELEASED FOR USE
--- NOTE | 2020-10-14 20:18 | NUR ---
TEMP CONT TO BE LOW. PLACE IN WARM BLANKETS AND ROOM TEMP INCREASED. PT IS RESTLESS THIS PM. NEW IV PLACED. RESPIRAIONS ARE LABORED. WILL CONT WITH PLAN OF CARE.
[2020-10-14 21:12] LABS: BE(vivo) -11.3 mmol/L (-2 to +3); HCO3 17.5 mmol/L (22.0-26.0); PCO2 52.7 mmHg (35.0-45.0); PO2 75.4 mmHg (80.0-100.0); sO2 90.4 % (92.0-98.0)
[2020-10-14 21:20] LABS: pH 7.138 (7.360-7.450)
[2020-10-15 00:45] VITALS: BP 164/76
[2020-10-15 05:15] VITALS: BP 164/89
--- NOTE | 2020-10-15 05:52 | NUR ---
UPON INITIAL ASSESSMENT AT BEGINNING OF SHIFT, PT NOTED TO HAVE LABORED BREATHING AND SOME RESPIRATORY DISTRESS ON 5-6L NC. SHE WAS CONFUSED AND ANXIOUS. RT OBTAINED ABG PER DR CORONA. NOTIFIED DR BUCHANAN ON ABG RESULTS. ORDER RECEIVED TO PLACE PT ON BIPAP. PT IS STILL CURRENTLY ON BIPAP AT 50% FIO2. SHE HAS TOLERATED THE BIPAP WELL MOST OF THE NIGHT. AROUND 0245, PT DID BECOME MORE ANXIOUS AND SOA WHILE ON THE BIPAP. LUNGS SOUNDED COARSE WITH CRACKLES. SHE WAS SITTING IN TRIPOD POSITION IN THE BED. SPO2 REMAINED 98-100%. NOTIFIED DR BUCHANAN. LASIX 40MG AND PRN LORAZEPAM GIVEN ORDERED. PT IS MORE COHERENT THIS MORNING AND IS NOW FEELING SLIGHTLY BETTER. RESPIRATIONS MORE EVEN AND UNLABORED. VOIDING ADEQUATELY PER BEDPAN. FALL PRECAUTIONS IN PLACE. NOT PROGRESSING WELL TOWARD POC GOALS. WILL GIVE REPORT TO ONCOMING NURSE.
--- NOTE | 2020-10-15 05:57 | NUR ---
FAMILY CONTACTS DURING THE NIGHT: 2009 - SPOKE WITH ELVIS. UPDATE PROVIDED ON PT'S CHANGE IN RESPIRATORY STATUS. 2139 - SPOKE WITH PT'S SON SOFIE. HE WAS NOTIFIED SHE WILL BE PLACED ON BIPAP DUE TO RESP DISTRESS AND ABG RESULTS. 451 - SPOKE WITH ELVIS AGAIN. UPDATED PROVIDED ON HOW PT IS DOING ON BIPAP. ELVIS STATED THAT PT'S SON AND DTR ARE BOTH DRUG ADDICTS, BUT THAT SOFIE IS MOSTLY RESPONSIBLE AND IS ABLE TO HOLD A JOB. SOFIE AND ELVIS BOTH REQUESTED TO BE NOTIFIED IF PT HAS ANY STATUS CHANGES, REGARDLESS OF THE TIME (DAY OR NIGHT).
[2020-10-15 08:00] VITALS: BP 168/91
--- NOTE | 2020-10-15 08:00 | NUR ---
ASSUMMED CARE FROM TRAV THE NIGHT NURSE. DR BUCHANAN PAGED PATIENT IS INCONTIENT OF URINE AND TRYING TO GET OUT OF BED AFTER LASIX GIVEN. URINARY CATH PLACED WITHOUT INCIDENT. PATIENT REORIENTED TO PLACE, TIME AND SITUATION.
--- NOTE | 2020-10-15 10:00 | NUR ---
PATIENT IS CONSTANTLY PULLING OFF O2 AND ATTEMPTING TO GET OUT OF BED. REORIENTED BUT HAS POOR SHORT TERM MEMORY FROM PREVIOUS CVA.
[2020-10-15 11:51] VITALS: BP 154/84
[2020-10-15 15:22] LABS: ANION GAP 14 mmol/L (7-16); BUN 61 mg/dL (7-18); CALCIUM 8.2 mg/dL (8.5-10.1); CHLORIDE 111 mmol/L (98-107); CO2 21 mmol/L (21-32); CREATININE 1.8 mg/dL (0.6-1.0); DIRECT BILIRUBIN < 0.1 mg/dL (<0.1-0.2); GLUCOSE 175 mg/dL (74-106); POTASSIUM 4.4 mmol/L (3.5-5.1); SGOT 35 U/L (15-37); SGPT 66 U/L (30-65); SODIUM 146 mmol/L (136-145); TOTAL BILIRUBIN 0.2 mg/dL (0.2-1.0)
--- NOTE | 2020-10-15 16:26 | NUR ---
NAN reviewed chart and spoke with nursing. Pt remains in Enhanced Isolation due to COVID-19. Pt is afebrile and on bipap support. Pt is on IV abx and IV steroids. Pt is on IV Lasix. Pt unable to talk via phone due to bipap. NAN spoke with pt's son, Nicolas, via phone. Introduced role of SW. Pt lives at home with her significant other, Portillo. Prior to admission, pt has been independent with ADLs. Pt's son states that she has been weak and has been more forgetful lately. Pt's son lives in [place]. SW provided update. Pt has been to [facility] in the past for inpt acute rehab. Pt has used [facility]. Pt's son states that his sister, Li, has said she is pt's DPOA. DPOA ppwk is not on file at [facility]. Pt's son asked about becoming pt's DPOA. NAN explained that pt must be alert/orientated x 4 to able to appoint a DPOA. Pt's son verbalized understanding. NAN notified attending physician. NAN is following to assist as needed with discharge planning.
--- NOTE | 2020-10-15 16:48 | NUR ---
1440 PATIENT CONTINUOUSLY PULLING OFF BIPAP AND ATTEMPTING TO CLIMB OUT OF BED. DR. BUCHANAN NOTIFIED AND ORDERS RECEIVED.
[2020-10-15 16:50] VITALS: BP 146/93
--- NOTE | 2020-10-15 17:00 | NUR ---
SPOKE WITH RAY, PATIENT'S S/O AND UPDATED HIM AND EDUCATED HIM IN REGARDS TO RESTRAINTS TO MAINTAIN BIPAP. PATIENT IS NOT PROGRESSING BUT IS CALMER AT THE PRESENT TIME.
[2020-10-15 19:25] VITALS: BP 156/77
[2020-10-16 05:26] VITALS: BP 139/66
[2020-10-16 05:43] LABS: ALBUMIN 2.9 g/dL (3.4-5.0); ANION GAP 14 mmol/L (7-16); BUN 50 mg/dL (7-18); CALCIUM 7.5 mg/dL (8.5-10.1); CHLORIDE 115 mmol/L (98-107); CO2 21 mmol/L (21-32); CREATININE 1.7 mg/dL (0.6-1.0); DIRECT BILIRUBIN < 0.1 mg/dL (<0.1-0.2); GLUCOSE 179 mg/dL (74-106); PHOSPHORUS 4.5 mg/dL (2.5-4.9); POTASSIUM 3.8 mmol/L (3.5-5.1); SGOT 24 U/L (15-37); SGPT 61 U/L (30-65); SODIUM 150 mmol/L (136-145); TOTAL BILIRUBIN 0.1 mg/dL (0.2-1.0)
--- NOTE | 2020-10-16 07:23 | NUR ---
ASSUMED CARE OF PT AT 1900HRS. PT AOX1-2 AND NEEDS BUST BE ANTICIPATED. FALL PRECAUTION IN PLACE. FREQUENT CHECKS DONE ON PT SHE IS ON RESTRAINTS. PT ON BIPAP. MILLER IN PLACE AND IS PATIENT. PT IS SR ON TELE. PT WAS ABLE TO GET COMFORTABLE AND SLEEP PART OF THE SHIFT. SOFIE (SON) UPDATED RE PT'S CONDITION. REPORT GIVEN TO AM NURSE.
[2020-10-16 07:38] LABS: HEMATOCRIT 27.1 % (37.0-47.0); HEMOGLOBIN 8.7 gm/dL (12.0-15.0); MCH 32.5 pg (26.0-34.0); MCHC 32.1 g/dL (28.0-37.0); MCV 101.2 fL (80.0-100.0); RBC 2.68 mil/uL (4.20-5.00); RDW 15.7 % (10.5-14.5); WBC 10.2 thou/uL (4.0-11.0)
[2020-10-16 08:01] VITALS: BP 166/80
[2020-10-16 11:39] VITALS: BP 167/85; BP 67/85
--- NOTE | 2020-10-16 15:42 | NUR ---
SW reviewed chart and spoke with nursing. Pt remains in Enhanced Isolation due to COVID-19. Pt is afebrile and requiring bipap support. Pt is on IV abx and IV steroids. Pt on IV lasix. Course of Remdesivir started. Pt placed in restraints due to pulling at lines and bipap. Pt is a full code. SW is following to assist as needed with discharge planning.
[2020-10-16 16:23] VITALS: BP 143/74
--- NOTE | 2020-10-16 16:28 | NUR ---
Patient not progressing towards plan of care as evidenced by patient frequently removal of bipap or oxygen. Nurse has talked with patients roommate a few times today, as he has called to check on her status. He also noted that Dr. Soto talked with him about patients prognosis. He was updated on patients status. Patient frequently repositioned for comfort in bed as she is restless. She is intermittently oriented, however, she is impulsive. Nurse to continue to monitor patient status.
--- NOTE | 2020-10-16 18:28 | NUR ---
MIDLINE DRESSING HAD DRIED CLOT UNDER DRESSING. DRESSING WAS CHANGED WITHOUT COMPLICATION, NEW BIOPATCH PLACED USING STERILE TECHNIQUE. NURSE TO CONTINUE TO MONITOR SITE STATUS.
[2020-10-16 20:19] VITALS: BP 161/96
[2020-10-17 03:42] VITALS: BP 160/94
--- NOTE | 2020-10-17 06:00 | NUR ---
PT AOX1, TO PERSON. PT NOTED TO BE DROWSY, IMPULSIVE, AND RESTLESS. PT RESPONDS APPROPRIATELY TO SOME PROMPTS. UPON SHIFT ASSESSMENT, PT REPORTS 10/10 PAIN ALL OVER. PT HAS PRN IV MORPHINE Q4HR AVAILABLE. PT RECEIVING PRN IV ATIVAN Q4HR. PT ASSESSED WITH FLACC OF 5. PT WITH RESTRAINTS IN PLACE TO BOTH WRISTS, PULSES PALPABLE, SENSATION INTACT, CAPILLARY REFILL LESS THAN 3SEC IN ALL EXTREMITIES. PT CONTINUES ATTEMPTING TO PULL AT LINES/TUBES. PT CONTINUES WITH 3.5L O2 PER NC WITHOUT DESATURATIONS. PT RESTING IN BED THROUGHOUT SHIFT, FREQUENT REPOSITIONING ENCOURAGED, PT NOTED TO SHIFT INDEPENDENTLY WHILE IN BED. PT ENCOURAGED TO NOTIFY STAFF FOR ALL NEEDS, CALL LIGHT WITHIN REACH, BED ALARM ON, BED IN LOWEST POSITION, FREQUENT MONITORING WILL CONTINUE.
[2020-10-17 06:38] LABS: ALBUMIN 2.7 g/dL (3.4-5.0); ANION GAP 13 mmol/L (7-16); BUN 35 mg/dL (7-18); CALCIUM 7.8 mg/dL (8.5-10.1); CHLORIDE 112 mmol/L (98-107); CO2 24 mmol/L (21-32); CREATININE 1.3 mg/dL (0.6-1.0); DIRECT BILIRUBIN < 0.1 mg/dL (<0.1-0.2); GLUCOSE 197 mg/dL (74-106); SGOT 24 U/L (15-37); SGPT 67 U/L (30-65); SODIUM 149 mmol/L (136-145); TOTAL BILIRUBIN 0.2 mg/dL (0.2-1.0); TOTAL PROTEIN 5.6 g/dL (6.4-8.2)
[2020-10-17 06:42] LABS: POTASSIUM 2.7 mmol/L (3.5-5.1)
--- NOTE | 2020-10-17 06:46 | NUR ---
BLAZE FROM LAB CALLED CRITICAL OF K+2.7. NOTIFIED NURSE TAKING CARE OF PT.
[2020-10-17 12:34] VITALS: BP 173/80
--- NOTE | 2020-10-17 15:24 | NUR ---
SW reviewed chart and spoke with nursing. Pt remains in Enhanced Isolation due to COVID-19. Pt is in restraints due to agitation and pulling at lines. Pt is afebrile and on 3.5L of O2. Pt is on IV abx and IV steroids. Pt is on IV lasix and completing course of Remdesivir. Pt is not able to participate with therapy at this time. NAN is following to assist as needed with discharge planning.
[2020-10-17 17:46] VITALS: BP 173/91
--- NOTE | 2020-10-17 18:41 | NUR ---
CHESTER CONT ON RESTRAINTS AT THIS TIME. SHE IS NOTED FIGHTING TO GET OUT OF BED. ATIVAN HELD FOR THE DAY. HAD MS ONLY ONCE FOR PAIN. HAS BEEN SLEEPING MOST OF THE DAY. WILL CONT WITH PLAN OF CARE.
[2020-10-17 20:17] VITALS: BP 160/103
--- NOTE | 2020-10-18 00:03 | NUR ---
PT RESTING IN BED, PT REQUESTED WARM BLANKETS AND PROVIDED. PT REPORTING DRY MOUTH, WATER AND ICE CREAM PROVIDED. MOUTH CARE PROVIDED. O2 PER NC. IVF INTACT. LUNGS WHEEZES, COUGH. PT STATING SHE WANTS TO GO HOME. SOFT RESTRAINTS REMAIN INTACT. BED ALARM.
[2020-10-18 03:45] VITALS: BP 153/84
[2020-10-18 06:23] LABS: HEMATOCRIT 26.7 % (37.0-47.0); HEMOGLOBIN 8.7 gm/dL (12.0-15.0); MCHC 32.7 g/dL (28.0-37.0); RBC 2.72 mil/uL (4.20-5.00); RDW 15.5 % (10.5-14.5); WBC 12.4 thou/uL (4.0-11.0)
[2020-10-18 06:53] LABS: ALBUMIN 2.7 g/dL (3.4-5.0); ANION GAP 11 mmol/L (7-16); BUN 29 mg/dL (7-18); CALCIUM 7.6 mg/dL (8.5-10.1); CHLORIDE 107 mmol/L (98-107); CO2 27 mmol/L (21-32); CREATININE 1.1 mg/dL (0.6-1.0); DIRECT BILIRUBIN < 0.1 mg/dL (<0.1-0.2); GLUCOSE 146 mg/dL (74-106); PHOSPHORUS 3.4 mg/dL (2.5-4.9); SGOT 22 U/L (15-37); SGPT 57 U/L (30-65); SODIUM 145 mmol/L (136-145); TOTAL BILIRUBIN 0.3 mg/dL (0.2-1.0); TOTAL PROTEIN 5.5 g/dL (6.4-8.2)
[2020-10-18 07:32] LABS: POTASSIUM 2.9 mmol/L (3.5-5.1)
[2020-10-18 08:17] VITALS: BP 154/83
[2020-10-18 11:19] VITALS: BP 162/81
[2020-10-18 15:34] VITALS: BP 149/80
--- NOTE | 2020-10-18 16:19 | NUR ---
ON-GOING ASSESSMENT: CM REVIEWED CHART. PT REMAINS IN ENHANCED ISOLATION DUE TO COVID 19. PT WAS TAKEN OUT OF SOFT RESTRAINTS THIS AM. PT REMAINS ON 3L OXYGEN AT THIS TIME. CM WILL CONTINUE TO FOLLOW TO ASSIST NEEDED.
--- NOTE | 2020-10-18 16:55 | NUR ---
ALERT ORIENTED AT THIS TIME. AWAKE ABLE TO TALK TO FAMILY. CALLED BF AND ALSO CALLED DTR AND SPOKE TO THEM VIA VIDEO CALL. RESTRAINTS TAKEN OFF. CONT ON NC BUT SATS ARE GOOD. PLEASANT WTIH CARE. WILL CONT WTIH PLAN OF CARE.
[2020-10-18 19:09] VITALS: BP 165/77
--- NOTE | 2020-10-19 03:44 | NUR ---
ASSUMED CARE OF PT AT 1900HRS. PT AOX4 AND LETS NEEDS BE KNOWN. FALL PRECAUTION IN PLACE. PT REPORTED SOME PAIN AND NAUSEA; PRNS GIVEN. MILLER IN PLACE AND IS PATIENT. PT RAN SR/SA ON TELE. 24 HR URINE COLLECTION RESTARTED AT 1900HRS SAMPLE WAS DUMPED. PT WAS ON 1LNC INITIALLY AND NOW RA. PT WAS ABLE TO GET COMFORTABLE AND SLEEP PART OF THE SHIFT. VSS AND NO S/S OF ACUTE DISTRESS. WILL CONTINUE TO MONITOR.
[2020-10-19 04:25] VITALS: BP 140/78
[2020-10-19 06:01] LABS: HEMATOCRIT 26.5 % (37.0-47.0); HEMOGLOBIN 8.7 gm/dL (12.0-15.0); MCH 32.4 pg (26.0-34.0); MCV 98.1 fL (80.0-100.0); RBC 2.7 mil/uL (4.20-5.00); RDW 15.3 % (10.5-14.5); WBC 10.7 thou/uL (4.0-11.0)
[2020-10-19 06:24] LABS: ALBUMIN 2.6 g/dL (3.4-5.0); ANION GAP 11 mmol/L (7-16); BUN 31 mg/dL (7-18); CALCIUM 7.6 mg/dL (8.5-10.1); CHLORIDE 108 mmol/L (98-107); CO2 25 mmol/L (21-32); CREATININE 1.2 mg/dL (0.6-1.0); DIRECT BILIRUBIN < 0.1 mg/dL (<0.1-0.2); GLUCOSE 150 mg/dL (74-106); PHOSPHORUS 2.9 mg/dL (2.5-4.9); SGOT 16 U/L (15-37); SGPT 54 U/L (30-65); SODIUM 144 mmol/L (136-145); TOTAL BILIRUBIN 0.2 mg/dL (0.2-1.0)
[2020-10-19 06:29] LABS: POTASSIUM 4.2 mmol/L (3.5-5.1)
[2020-10-19 08:12] VITALS: BP 133/68
[2020-10-19 11:52] VITALS: BP 132/68
--- NOTE | 2020-10-19 15:14 | NUR ---
ON-GOING ASSESSMENT: CM REVIEDED CHART. PT REMAINS IN ENHANCED ISOLATION DUE TO COVID 19. PT IS STILL RECEIVING REMDESIVIR, IV ANBX, AND IV STEROIDS, PT WAS ABLE TO WITH WITH OT. STILL AWAITING PT EVAL AT THIS TIME. OT RECOMMENDING POST ACUTE CARE. CM ATTEMPTED TO REACH PATIENT IN HER ROOM BUT NO ANSWER. CM ALSO ATTEMPTED TO REACH OUT TO DAUGHTER JOE LISTED BUT UNABLE TO REACH AT NUMBERS ON CHART. CM SPOKE WITH PTS SON SOFIE WHO LIVES IN [place] WHO REPORTS HE SPEAKS TO HIS MOTHER OFTEN BUT REPORTS JOE HAS NOT SPOKEN TO HIM OR HIS MOTHER FOR ABOUT A YEAR. PT CURRENTLY WAS LIVING AT HOME WITH HER SIGNIFICANT OTHER ELVIS AND HE REPORTS HE MAY BE THE BETTER ONE TO CONTACT. HE IS UNSURE IF PT HAS DPOA OR NOT. CM ATTEMPTED TO REACH ELVIS BUT UNABLE TO AT THE NUMBER GIVEN. CM WILL CONTINUE TO FOLLOW. NO WEEKEND DISCHARGE ANTICIPATED.
--- NOTE | 2020-10-19 15:54 | NUR ---
PT A&OX4, VSS, PAIN IN BACK AND C/O NAUSEA. MEDICATION GIVEN ORDERED, ASSESSMENT COMPLETED. 24 URINE COLLECTION SENT TO LAB. WORKED WITH PT/OT. PT ON 1L O2 NC. NO SIGNS OF DISTRESS. WILL CONTINUE TO MONITOR.
[2020-10-19 15:55] VITALS: BP 131/69
[2020-10-19 19:23] VITALS: BP 138/74
--- NOTE | 2020-10-19 22:50 | NUR ---
PT RESTLESS FUSSY. PT UP TO BSC ONE PERSON ASSIST. PT ON ROOM AIR, PRN NC 02. LUNGS COARSE, PALE DUSKY SKIN TONE, MILLER TO DD. PT C/O CHRONIC BACK PAIN AND PRN PROVIDED. PT PROVIDED HS SNACK. IVF INTACT. BED ALARM ON.
--- NOTE | 2020-10-20 00:04 | NUR ---
ANGELA GRACE 1554.
[2020-10-20 03:55] VITALS: BP 150/86
[2020-10-20 04:53] LABS: ALBUMIN 2.4 g/dL (3.4-5.0); ANION GAP 9 mmol/L (7-16); BUN 36 mg/dL (7-18); CALCIUM 7.6 mg/dL (8.5-10.1); CHLORIDE 109 mmol/L (98-107); CO2 24 mmol/L (21-32); CREATININE 1.4 mg/dL (0.6-1.0); DIRECT BILIRUBIN < 0.1 mg/dL (<0.1-0.2); GLUCOSE 181 mg/dL (74-106); PHOSPHORUS 2.8 mg/dL (2.5-4.9); POTASSIUM 5.1 mmol/L (3.5-5.1); SGOT 28 U/L (15-37); SGPT 83 U/L (30-65); SODIUM 142 mmol/L (136-145); TOTAL BILIRUBIN 0.1 mg/dL (0.2-1.0); TOTAL PROTEIN 4.9 g/dL (6.4-8.2)
--- NOTE | 2020-10-20 06:41 | NUR ---
PT HAS NOT URINATED SINCE DC MILLER, BLADDER SCANNED SHOWING 180. WILL HAVE DAY SHIFT FOLLOW UP.
[2020-10-20 08:04] VITALS: BP 135/53
[2020-10-20 16:18] VITALS: BP 153/79
[2020-10-20 19:32] VITALS: BP 135/75
--- NOTE | 2020-10-20 22:26 | NUR ---
PT RESTING IN BED. PT ASKS FOR ASSITANCE WITH TRANSFERS TO BSC. PT ON ROOM AIR. REMAINS PALE SKIN TONE, SOA WITH EXERTION, LUNGS DIMINISHED. PT VERBALIZED PLAN TO GO TO REHAB ON THURSDAY. PT STATED SHE IS THE SMALLEST IN HER FAMILY AND THE STRONGEST. PT PROVIDED HS SNACK.
[2020-10-21 02:43] VITALS: BP 149/80
[2020-10-21 04:52] LABS: CALCIUM 7.6 mg/dL (8.5-10.1); CREATININE 1.4 mg/dL (0.6-1.0)
[2020-10-21 04:54] LABS: POTASSIUM 6.2 mmol/L (3.5-5.1)
--- NOTE | 2020-10-21 05:21 | NUR ---
JOHANA 6.2, DR GOMEZ. IVF STOPPED UNTIL FURTHER CLARIFICATION FROM
[2020-10-21 09:00] VITALS: BP 145/70
[2020-10-21 12:53] LABS: CALCIUM 7.9 mg/dL (8.5-10.1); CREATININE 1.5 mg/dL (0.6-1.0); POTASSIUM 5.9 mmol/L (3.5-5.1)
[2020-10-21 17:19] VITALS: BP 131/67
[2020-10-21 20:10] VITALS: BP 144/62
--- NOTE | 2020-10-21 21:31 | HC ---
[facility] [place] [address] CONSULTATION Name: BIPIN RICCI Room #: 363-P [facility] IN M.R.#: [id number] Admission: 10/10/20 Attend Phys: Stew Soto MD Discharge: Date of : 52 Report #: [id number] THIS REPORT FOR: cc: Stew Soto MD, Neal A. MD Geha,Herbert Granda MD ~ DATE OF SERVICE: 10/12/2020 INFECTIOUS DISEASE CONSULTATION REASON FOR CONSULTATION: COVID-19, underlying COPD. HISTORY OF PRESENT ILLNESS: The patient is a 70-year-old with advanced COPD, presents with shortness of breath for approximately 3 days prior to her admission on 10/11/2020. She has not been feeling well for several weeks, acute worsening, however, with shortness of breath, cough, increased sputum production and mid posterior back pain. No fever, chills or sweats. No nausea, vomiting or diarrhea. No anosmia. No headaches. Mental status has been normal. A 14-point review of system was negative other than what has been described above. ALLERGIES: PHENYTOIN, ASPIRIN, CODEINE. MEDICATIONS: As noted on her MAR, which were reviewed. PAST MEDICAL HISTORY: Seizures, bowel obstruction, stroke, colon resection, cholecystectomy, hepatitis C, appendectomy, hypertension, COPD, endometrial cancer, biliary stent, hysterectomy. FAMILY HISTORY: No report of tuberculosis. SOCIAL HISTORY: Smoker of cigarettes. No significant alcohol intake. PHYSICAL EXAMINATION: VITAL SIGNS: She was afebrile and hemodynamically stable. GENERAL: She was of small stature. SKIN: No edema. No rashes or adenopathy. EYES: Without scleral icterus. MOUTH: Dry. NECK: Supple. LUNGS: Coarse breath sounds bilaterally with crackles in the bases. HEART: Regular without murmur, gallop or rub. ABDOMEN: Soft and nontender with no hepatosplenomegaly or mass. She was on supplemental oxygen. [address] [address] CONSULTATION Name: BIPIN RICCI PINOLE Room #: [address] [place] [address] [place] [facility].#: [id number] Admission: 10/10/20 Attend Phys: Stew Soto MD Discharge: Date of : 52 Report #: [id number] EXTREMITIES: Without cyanosis or clubbing. NEUROLOGIC: Mood was sedate. Cranial nerves intact and strength in the upper and lower extremities was symmetric and within normal limits. LABORATORY STUDIES: Reviewed. MICROBIOLOGY: Reviewed. Chest x-ray reviewed. IMPRESSION: COVID-19 infection with hypoxia and respiratory compromise. This is in the setting of chronic obstructive pulmonary disease. She has acute on chronic congestive heart failure, underlying coronary artery disease. RECOMMENDATION: Since the patient's oxygen has dropped below 94%, she is markedly debilitated and high risk for further compromise. Although routine chest x-ray failed to identify any acute infiltrate, I suspect she would have interstitial changes on CT scan. She ____ infection would benefit from antiviral therapy. At this point, I would recommend corticosteroids and remdesivir. She does have renal compromise but I suspect much of this is prerenal in nature and will improve. Studies with remdesivir in acute kidney injury and chronic kidney failure has proven effective with minimal side effect. Creatinine and liver function tests would need to be followed on a daily basis. Discussed with attending. <ELECTRONICALLY SIGNED> By: Herbert Arias MD 10/21/20 [phone] Herbert Arias MD /nt
[2020-10-22 01:43] VITALS: BP 148/65
[2020-10-22 04:22] VITALS: BP 137/69
--- NOTE | 2020-10-22 04:51 | NUR ---
PT TRANSFERRING TO BEDSIDE COMMODE WITH WALKER AND ASSIST X1 AND IS TOLERATING FAIR. PERCOCET PROVIDING PAIN RELIEF. RESTING COMFORTABLY. NO NEEDS VOICED. CALL LIGHT WITHIN REACH. FREQUENT OBSERVATION.
[2020-10-22 08:48] VITALS: BP 146/61; BP 148/81
[2020-10-22 13:21] LABS: CREATININE 1.4 mg/dL (0.6-1.0)
--- NOTE | 2020-10-22 14:33 | NUR ---
NAN reviewed chart and spoke with nursing and attending physician. Pt remains in Enhanced Isolation due to COVID-19. Pt to be in isolation until 10/27 per ID. Pt is afebrile and on 3L of O2. Pt is on IV lasix and IV steroids. Pt has completed course of Remdesivir. Recommendation made for pt to go to a SNF for post-acute care. NAN placed call into pt's room. No answer. NAN received call from pt's dtr, Li, stating she has spoken with pt about going to [place], which is where Li works. NAN left voice message for pt's son, Nicolas, to update and discuss discharge planning. NAN faxed referral to [facility] and spoke with Sherif in admissions. Clinical team to review referral. NAN is following to assist as needed with discharge planning.
[2020-10-22 15:45] VITALS: BP 109/84
[2020-10-22 20:22] VITALS: BP 124/51
[2020-10-23 05:48] VITALS: BP 168/83
[2020-10-23 06:29] LABS: ABSOLUTE NEUTROPHILS 15.4 thou/uL (1.4-8.2); HEMATOCRIT 27.4 % (37.0-47.0); HEMOGLOBIN 8.6 gm/dL (12.0-15.0); LYMPHOCYTES 2.1 % (24.0-44.0); MCH 31.3 pg (26.0-34.0); MCHC 31.5 g/dL (28.0-37.0); MCV 99.2 fL (80.0-100.0); MONOCYTES 2.6 % (1.0-8.0); PLATELET COUNT 189 thou/uL (150-400); POLYS 95.3 % (36.0-66.0); RBC 2.76 mil/uL (4.20-5.00); RDW 14.9 % (10.5-14.5); WBC 16.1 thou/uL (4.0-11.0)
[2020-10-23 06:47] LABS: ALBUMIN 2.3 g/dL (3.4-5.0); ANION GAP 7 mmol/L (7-16); BUN 34 mg/dL (7-18); CALCIUM 7.7 mg/dL (8.5-10.1); CHLORIDE 112 mmol/L (98-107); CO2 24 mmol/L (21-32); CREATININE 1.4 mg/dL (0.6-1.0); FIBRINOGEN 143.9 mg/dL (210-360); GLUCOSE 157 mg/dL (74-106); INR 1.2; POTASSIUM 4.5 mmol/L (3.5-5.1); PROTIME 11.9 Seconds (9.3-11.4); SGOT 16 U/L (15-37); SGPT 54 U/L (30-65); SODIUM 143 mmol/L (136-145); TOTAL BILIRUBIN 0.3 mg/dL (0.2-1.0); TOTAL PROTEIN 4.7 g/dL (6.4-8.2)
--- NOTE | 2020-10-23 07:23 | NUR ---
ALERT.UP WITH ASSIST TO THE BEDSIDE COMMODE.O2 5L NC.DENIES NEEDS.POC CONTINUED.
[2020-10-23 07:42] VITALS: BP 177/95
--- NOTE | 2020-10-23 13:24 | NUR ---
NAN reviewed chart and spoke with nursing and attending physician. Pt remains in Enhanced Isolation due to COVID-19. Pt is afebrile and currently on room air. Pt is on IV lasix and IV steroids. NAN spoke with Sherif in admissions at [facility] to provide update. Per Sherif, they are able to accept pt when medically stable. NAN faxed clinical updates to the facility for review. The clinical team is going to decide where to place pt in their facility. NAN spoke with pt via phone to discuss discharge plan. Pt is aware and agreeable with plan to discharge to [facility] when medically stable. NAN spoke with pt's daughter, Li, via phone to provide update. Li is agreeable with plan. iL asked about pt's secondary insurance: Medicaid. NAN reviewed chart. Pt had [place] Medicaid during hospitalization in 2019. NAN discussed with UR and registration. Pt's [place] is currently inactive. Med Assist notified and will reapply on pt's behalf. NAN provided update to Sherif at [facility]. NAN is following to assist as needed with discharge planning.
[2020-10-23 15:39] VITALS: BP 131/61
[2020-10-23 20:41] VITALS: BP 138/60
--- NOTE | 2020-10-23 22:18 | NUR ---
PT RESTING IN BED. ON ROOM AIR, LUNGS WITH CRACKLES. PT REPORTING FATIGUE WITH TRANSFERS TO BSC. PT PROVIDED HS SNACK. PT CALLING FOR ASSISTANCE WITH TRANSFERS.
[2020-10-24 03:47] VITALS: BP 143/54
[2020-10-24 06:13] LABS: HEMATOCRIT 27.7 % (37.0-47.0); HEMOGLOBIN 8.9 gm/dL (12.0-15.0); MCH 31.4 pg (26.0-34.0); MCHC 31.9 g/dL (28.0-37.0); MCV 98.4 fL (80.0-100.0); RBC 2.82 mil/uL (4.20-5.00); WBC 15.5 thou/uL (4.0-11.0)
[2020-10-24 06:43] LABS: CALCIUM 7.3 mg/dL (8.5-10.1); CREATININE 1.5 mg/dL (0.6-1.0); POTASSIUM 3.9 mmol/L (3.5-5.1)
[2020-10-24 07:47] VITALS: BP 157/67
[2020-10-24] MEDS ORDERED: LOPRESSOR50 PO (08:29)
[2020-10-24] MEDS ORDERED: VITAMIN D325 MC1 PO (08:30)
[2020-10-24] MEDS ORDERED: ACCUPRIL40 MG PO (08:30)
[2020-10-24] MEDS ORDERED: VITAMIN B-1100 M2 PO (08:31)
[2020-10-24] MEDS ORDERED: VITAMINC500 PO (08:31)
[2020-10-24] MEDS ORDERED: ZINC SULFATE 2220 MG PO (08:32)
[2020-10-24] MEDS ORDERED: PERCOCET PO (08:32)
[2020-10-24] MEDS ORDERED: PEPCID20 MG PO (08:32)
[2020-10-24] MEDS ORDERED: CEFDINIR300 MG PO (08:33)
[2020-10-24 15:32] VITALS: BP 117/58
--- NOTE | 2020-10-24 15:43 | NUR ---
NAN reviewed chart and spoke with nursing and attending physician. Pt remains in Enhanced Isolation due to COVID-19. Pt is medically stable for discharge to [facility] today. NAN spoke with Sherif in admissions, who states that her clinical team will need to review pt's vital signs for last 24 hours in order to determine which unit they will place pt in upon admission. NAN faxed updated info and finalized discharge orders/summary for review. NAN left voice message for Sherif at [phone]. Awaiting call back from Sherif at this time. NAN spoke with pt via phone and her dtr, Li, to provide update. Both are aware and agreeable with discharge plan. Chart copy requested. NAN is following to assist as needed with discharge planning.
[2020-10-24 20:18] VITALS: BP 131/59
--- NOTE | 2020-10-25 01:38 | NUR ---
PT IS A/O X4.PT IS UP WITH STANDBY ASSIST TO BSC,PT IS ON ROOM AIR AND FROM [facility].PT DENIED PAIN BUT C/O HEADACHE AND GIVEN TYLENOL WITH RELIEF.WILL CONTINUE TO MONITOR
[2020-10-25 07:10] VITALS: BP 157/66
--- NOTE | 2020-10-25 10:00 | NUR ---
SPOKE WITH HONG IN ADM AT THE [facility] THEY CAN ACCEPT ON PT NOT CONSIDERED POSITIVE HOPEFULLY BE ABLE TO ADMIT BY 10/27. REQUESTING V.S. X24 HRS, O2 SATS FAXED CLINICAL UPDATE RECEIVED CONFIRMATION. DP TO FOLLOW.
--- NOTE | 2020-10-25 10:02 | NUR ---
SPOKE WITH HONG IN ADM AT [facility] THEY CAN ACCEPT PT ONCE PT IS NOT CONSIDERED COVID POSITIVE POSS ADMIT BY 10/27. REQUESTED V.S. X24HRS, O2 SATS FAXED CLINICAL UPDATE AND RECEIVED CONFIRMATION. DP TO FOLLOW.
--- NOTE | 2020-10-25 10:09 | NUR ---
ASSUMED CARE OF PATIENT SHE IS ALERT XS 4 PLEASANT AND COOPERATIVE WITH CARE. TOOK AM MEDS ATE BREAKFAST. DR BUCHANAN HERE TO SEE PATIENT HE WROTE RX'S AND PUT DC ORDERS IN CHART. PT TO DISCHARGE TO [facility] WHEN BED BECOMES AVAILABLE. PT GIVEN PRN PAIN MED REQUESTED.
[2020-10-25 11:15] VITALS: BP 137/58
--- NOTE | 2020-10-25 15:13 | NUR ---
on-going assessment: CM REVIEWED CHART AND SPOKE WITH PT WELL HER DAUGHTER KIRAN [phone]. PT IS STABLE TO DISCHARGE TO SNF. PT IS STILL IN ENHANCED ISOLATION FOR COVID 19. PT WAS HOPEFUL SHE COULD GO TO [facility] WHERE HER DAUGHTER KIRAN WORKS. HOWEVER, CM RECEIVED A CALL FROM [facility] IN ADMISSIONS WHO REPORTS THAT HER ADMINISTRATION HAS TOLD HER SINCE THEY ARE A COVID FREE FACILITY THEY ARE NOT WILLING TO ACCEPT PATIENT UNTIL THEY CONSIDER HER COVID FREE WHICH THEIR POLICY SAYS 21 DAYS AFTER POSITIVE TEST. SHE REPORTS THE SOONEST THEY COULD ACCEPT HER IS 10/31. LARISALANDON REPORTS THEY WOULD LIKE TO ACCOMIDATE FAMILY DAUGHTER WORKS THERE SO THEY COULD SEND HER TO THEIR SISTER FACILITY CALLED [facility] UNTIL 10/31 THEN MOVE HER TO [facility]. CM DISCUSSED WITH PT AND DAUGHTER AND PT UNSURE SHE WANTS TO GO THAT FAR AND MAY WANT TO CONSIDER A SNF AROUND HERE THAT ACCEPTS COVID POSITIVE PTS. DAUGHTER REPORTS THAT SHE HAVE TIME TO TALK TO ADMISSIONS AT [facility] AND HER MOTHER AND IN THE MEANTIME REFERRALS CAN BE SENT TO [facility]. [facility] WILL REVIEW BUT UNSURE OF BED STATUS UNTIL END OF DAY. [facility] WILL REVIEW AND WILL HAVE LIKELY TWO BEDS OPEN TOMORROW. CM WILL CONTINUE TO FOLLOW AND AWAIT FURTHER DECISION FROM PT AND DAUGHTER.
[2020-10-25 16:15] VITALS: BP 125/63
[2020-10-25 21:13] VITALS: BP 125/58
--- NOTE | 2020-10-26 03:18 | NUR ---
PT ALERT AND ORIENTED. VITALS STABLE. REPORTS LOWE BACK PAIN, PRN PAIN MEDS GIVEN. PT ANTICIPATES TO DC THIS MORNING. ALL OTHER ASSESSMENTS DOCUMENTED. WILL CONTINUE TO MONITOR
[2020-10-26 04:17] VITALS: BP 139/60
[2020-10-26 08:06] VITALS: BP 149/63
--- NOTE | 2020-10-26 14:55 | NUR ---
on-going assessment: ALICE REVIEWED CHART AND SPOKE WITH PATIENT AND HER DAUGHTER KIRAN. PT IS ABLE TO DISCHARGE TODAY TO [facility] TODAY AND THEN WILL TRANSFER TO [facility] (ONCE BED IS AVAIBLE). ALICE SPOKE WITH [facility] IN ADMISSIONS WHO COVERS BOTH FACILITIES. ALICE FAXED D/C ORDERS TO [facility] WHO PROVIDED THEM TO [facility]. PT IS AGREEABLE WITH PLAN. CHART COPY WAS ORDERED AND 2N PRINCIPAL TRAINER COMPLETING. [facility] STATING THEY CANNOT PROVIDE TRANSPORT DUE TO PT BEING COVID POSITIVE. ALICE SPOKE WITH CM DIRECTOR AND WHEELCHAIR VAN WAS ARRANGED FOR PATIENT THROUGH [facility] [phone] AND ARE PICKING HER UP BETWEEN 530-600PM. ALICE NOTIFIED BEDSIDE RN WELL PATIENTS DAUGHTER. PT REPORTS NO FURTHER NEEDS FROM [facility]ICE AT THIS TIME. ALICE PROVIDED BEDSIDE RN WITH NUMBER FOR REPORT [phone].
[2020-10-26 16:43] VITALS: BP 144/55
--- NOTE | 2020-10-26 18:14 | NUR ---
PT A&OX4, VSS, DENIES PAIN. RIGHT UPPER ARM MIDLINE REMOVED. PATIENT DISCHARGED TO [facility]. ALL BELONGINGS SENT WITH PATIENT. PAPERWORK SENT WITH PATIENT. NO SIGNS OF DISTRESS AT TIME OF LEAVE.
--- NOTE | 2020-10-29 07:54 | EKG ---
[address] [address] ELECTROCARDIOGRAM REPORT Name: BIPIN RICCI JEFF Room #: 224-P [facility] IN M.R.#: [id number] Admission: 10/10/20 Attend Phys: Stew Soto MD Discharge: 10/26/20 Date of : 52 Report #: [id number] [facility] Test Date: 2020-10-21 Test Time: 09:40:49 Pat Name: BIPIN RICCI Department: Room: 363 P Gender: F Perfect Binder Operator: GEMMA : 1950 Requested By: Stew Soto Order Number: [id number] MD: Job Haro Measurements Intervals [place] Rate: 64 P: -15 OK: 107 QRS: -7 QRSD: 86 T: 23 QT: 417 QTc: 431 Interpretive Statements Sinus rhythm Borderline short OK interval Compared to ECG 10/10/2020 13:02:13 Short OK interval now present Sinus tachycardia no longer present Ventricular premature complex(es) no longer present Left ventricular hypertrophy no longer present Electronically Signed On 10-21-2020 13:09:17 BUNCH TRIMMER MOLD by Job Haro [email or web address] <ELECTRONICALLY SIGNED> By: Job Haro MD 10/21/20 1309 0940 Job Haro MD /EPI
--- NOTE | 2020-10-30 12:42 | NUR ---
NAN received message from Sherif, customer service coordinator at [facility], requesting copy of [place]. NAN contacted Nancy at [employer], who sent SW completed [place] that was submitted on pt's behalf on 10/24. NAN faxed to Sherif at [phone]. Notified Sherif of aditya being faxed. No additional SW needs identified at this time, but is available to assist should needs arise.
== END 2020-10-26 19:00 | DRG 871 ==
LOC: ER 12:19 → EROBS 14:46 → 3W 14:46 → SICU 10-25 06:35
PROVIDERS: Physician Assistant; Specialist; ADMIT Family Medicine; ATTEND Family Medicine
PROC: XW033E5 Introduction of Remdesivir Anti-infective into Peripheral Vein, Percutaneous Approach, New Technology Group 5 (ICD-10-PCS; principal; 2020-10-12)
PROC: 5A09457 Assistance with Respiratory Ventilation, 24-96 Consecutive Hours, Continuous Positive Airway Pressure (ICD-10-PCS; 2020-10-14)
PROC: 05HB33Z Insertion of Infusion Device into Right Basilic Vein, Percutaneous Approach (ICD-10-PCS; 2020-10-14)
PROC: 5A09357 Assistance with Respiratory Ventilation, Less than 24 Consecutive Hours, Continuous Positive Airway Pressure (ICD-10-PCS; 2020-10-15)
PROC: 5A09357 Assistance with Respiratory Ventilation, Less than 24 Consecutive Hours, Continuous Positive Airway Pressure (ICD-10-PCS; 2020-10-16)
DX: A41.89 Other specified sepsis (principal); U07.1 COVID-19; I50.33 Acute on chronic diastolic (congestive) heart failure; J12.9 Viral pneumonia, unspecified; J96.21 Acute and chronic respiratory failure with hypoxia; J44.0 Chronic obstructive pulmonary disease with (acute) lower respiratory infection; J44.1 Chronic obstructive pulmonary disease with (acute) exacerbation; E87.0 Hyperosmolality and hypernatremia; F17.210 Nicotine dependence, cigarettes, uncomplicated; K59.00 Constipation, unspecified; E87.6 Hypokalemia; D63.8 Anemia in other chronic diseases classified elsewhere; R53.81 Other malaise; I11.0 Hypertensive heart disease with heart failure; M51.36 Other intervertebral disc degeneration, lumbar region; Z86.73 Personal history of transient ischemic attack (TIA), and cerebral infarction without residual deficits; Z90.49 Acquired absence of other specified parts of digestive tract; Z86.19 Personal history of other infectious and parasitic diseases; Z85.89 Personal history of malignant neoplasm of other organs and systems; Z90.710 Acquired absence of both cervix and uterus; Z88.6 Allergy status to analgesic agent; Z82.49 Family history of ischemic heart disease and other diseases of the circulatory system; Z83.3 Family history of diabetes mellitus; Z82.3 Family history of stroke; Z83.6 Family history of other diseases of the respiratory system; Z86.711 Personal history of pulmonary embolism; Z86.718 Personal history of other venous thrombosis and embolism
CPT/HCPCS: 10080; 10879; 15000; 27000

== ENCOUNTER 2021-08-27 08:54 | Inpatient (IN) | payer OTHER ==
[~2021-08-27] VITALS: Ht 152.4 cm; Wt 34.9 kg
[~2021-08-27 08:54] MED LIST changes: +CARDIZEM CD240 M1 PO; +CEFDINIR300 MG PO; +COZAAR 25 MG TA25 M1 PO; +PERCOCET PO; +PROTONIX40 M2 PO; +SPIRONOLACTONE25 MG PO; +TRAZODONE HCL50 MG PO; +VITAMIN B-1100 M2 PO; +VITAMIN D325 MC1 PO; +VITAMINC500 PO; +ZINC SULFATE 2220 MG PO
[2021-08-27 09:00] VITALS: BP 188/122
[2021-08-27 09:32] LABS: ABSOLUTE NEUTROPHILS 5.8 thou/uL (1.4-8.2); BASOPHILS 0.5 % (0.0-2.0); EOSINOPHILS 0.1 % (0.0-3.0); HEMATOCRIT 35.3 % (37.0-47.0); HEMOGLOBIN 11.5 gm/dL (12.0-15.0); LYMPHOCYTES 10.9 % (24.0-44.0); MCH 31.7 pg (26.0-34.0); MCHC 32.4 g/dL (28.0-37.0); MCV 97.7 fL (80.0-100.0); MONOCYTES 11.6 % (1.0-8.0); PLATELET COUNT 245 thou/uL (150-400); POLYS 76.9 % (36.0-66.0); RBC 3.62 mil/uL (4.20-5.00); RDW 15.1 % (10.5-14.5); WBC 7.5 thou/uL (4.0-11.0)
[2021-08-27 10:45] LABS: CALCIUM 8.9 mg/dL (8.5-10.1); CREATININE 1.4 mg/dL (0.6-1.0); POTASSIUM 3.4 mmol/L (3.5-5.1)
[2021-08-27 10:56] LABS: ALBUMIN 3.5 g/dL (3.4-5.0); TOTAL BILIRUBIN 0.4 mg/dL (0.2-1.0); TOTAL PROTEIN 7.5 g/dL (6.4-8.2)
--- NOTE | 2021-08-27 12:59 | EKG ---
[place] [address] [facility] [place] [address] ELECTROCARDIOGRAM REPORT Name: BIPIN RICCI Room #: [facility]#: [id number] Admission: 08/27/21 Attend Phys: Discharge: Date of : 52 Report #: [id number] [facility] ED Test Date: 2021-08-27 Test Time: 09:08:07 Pat Name: BIPIN RICCI Department: Room: Gender: F Lot Porter: ROMMEL : 1950 Requested By: Chuckie Francois Order Number: [id number] MD: Eladio Cason Measurements Intervals [place] Rate: 102 P: 59 MD: 110 QRS: -13 QRSD: 91 T: 96 QT: 367 QTc: 479 Interpretive Statements Sinus tachycardia with irregular rate LVH with secondary repolarization abnormality Baseline wander in lead(s) V3 Compared to ECG 10/21/2020 09:40:49 Left ventricular hypertrophy now present Early repolarization now present Sinus rhythm no longer present Electronically Signed On 08-27-2021 12:58:53 CDT by Eladio Cason [email or web address] <ELECTRONICALLY SIGNED> By: Eladio Cason MD, [facility] 08/27/21 1258 0908 Eladio Cason MD, FAC /EPI
--- NOTE | 2021-08-27 14:48 | EKG ---
[address] [address] ELECTROCARDIOGRAM REPORT Name: BIPIN RICCI JEFF Room #: 170-11 ADM IN M.R.#: [id number] Admission: 08/27/21 Attend Phys: Reginald Segura MD Discharge: Date of : 52 Report #: [id number] [facility] ED Test Date: 2021-08-27 Test Time: 12:11:30 Pat Name: BIPIN RICCI Department: Room: 170 11 Gender: F Childcare Administrator: LILLI : 1950 Requested By: Reginald Segura Order Number: [id number] MD: Eladio Cason Measurements Intervals [place] Rate: 86 P: 18 SC: 122 QRS: -14 QRSD: 86 T: 148 QT: 376 QTc: 450 Interpretive Statements Sinus rhythm LVH with secondary repolarization abnormality Compared to ECG 08/27/2021 09:08:07 Sinus tachycardia no longer present Electronically Signed On 08-27-2021 14:48:46 CDT by Eladio Cason [email or web address] <ELECTRONICALLY SIGNED> By: Eladio Cason MD, [facility] 08/27/21 1448 10 10 Eladio Cason MD, FAC /EPI
--- NOTE | 2021-08-27 19:12 | NUR ---
REPORT GIVEN TO MICHAEL CHAVES AT THIS TIME
[2021-08-27 19:35] VITALS: BP 109/56
[2021-08-27 21:19] VITALS: BP 134/56
[2021-08-27 21:45] VITALS: BP 116/65
[2021-08-28 05:27] LABS: CALCIUM 8.2 mg/dL (8.5-10.1); CREATININE 1.2 mg/dL (0.6-1.0); MAGNESIUM 2.1 mg/dL (1.8-2.4)
[2021-08-28 05:28] LABS: ABSOLUTE NEUTROPHILS 3.3 thou/uL (1.4-8.2); BASOPHILS 0.6 % (0.0-2.0); EOSINOPHILS 0.3 % (0.0-3.0); HEMATOCRIT 27.9 % (37.0-47.0); LYMPHOCYTES 18.6 % (24.0-44.0); MCH 32.8 pg (26.0-34.0); MCHC 33.5 g/dL (28.0-37.0); MCV 98.1 fL (80.0-100.0); MONOCYTES 13.4 % (1.0-8.0); PLATELET COUNT 198 thou/uL (150-400); POLYS 67.1 % (36.0-66.0); RBC 2.84 mil/uL (4.20-5.00); RDW 14.9 % (10.5-14.5)
[2021-08-28 05:49] LABS: HEMOGLOBIN 9.3 gm/dL (12.0-15.0)
[2021-08-28 05:58] LABS: POTASSIUM 4.5 mmol/L (3.5-5.1)
--- NOTE | 2021-08-28 07:18 | NUR ---
ADMIT PT ADMITTED TO ROOM 216 FROM ER. BEING ADMITTED WITH AECOPD, CHF, CHEST PAIN AND SOB. PT TO FLOOR VIA CART ON 6 LITERS O2. VSS. ORIENTED TO ROOM CALL LIGHT SYSTEM AND POC. SL TO RW. DAUGHTER KIRAN UPDATED AND GIVEN PT ID CODE. REQUESTED THE APPLICATION COORDINATOR CALL HER WHICH I PASSED ON TO DAY SHIFT IN REPORT. UP WITH SBA TO BSC VOIDING QS CONTINUE TO MONITOR.
[2021-08-28 07:41] VITALS: BP 112/68
--- NOTE | 2021-08-28 12:44 | 2DMMODE ---
[facility] [address] [place] [address] 2 D/M-MODE ECHOCARDIOGRAM Name: BIPIN RICCI [place] Room #: 216-P ADM IN M.R.#: [id number] Admission: 08/27/21 Attend Phys: Stew Soto MD Discharge: Date of : 52 Report #: [id number] THIS REPORT FOR: cc: Stew Soto MD, Neal A. MD Lammoglia, Francisco J. MD ~ APPROVED REPORT Study performed: 08/28/2021 10:10:59 EXAM: Comprehensive 2D, Doppler, and color-flow Echocardiogram Patient Location: Bedside Room #: 216 Status: routine BSA: 1.24 HR: 71 bpm BP: 112/68 mmHg Rhythm: NSR Other Information Study Quality: Good Indications Congestive Heart Failure COPD Dyspnea Elevated Troponin Chest Pain Hypertension/HDD 2D Dimensions RVDd: 33.76 mm IVSd: 9.59 (7-11mm) LVOT Diam: 18.67 (18-24mm) LVDd: 50.42 mm PWd: 10.34 (7-11mm) Ascending Ao: 28.40 (22-36mm) LVDs: 37.43 (25-40mm) Left Atrium: 36.58 (27-40mm) Aortic Root: 30.68 mm IVC: 19.00 mm Volumes Left Atrial Volume (Systole) Single Plane 4CH: 57.57 mL Single Plane 2CH: 45.71 mL LA ESV Index: 44.00 mL/m2 [facility] [address] [place] [address] 2 D/M-MODE ECHOCARDIOGRAM Name: RICCIBIPIN [place] Room #: 216[facility] IN ..#: [id number] Admission: 08/27/21 Attend Phys: Stew Soto, Discharge: Date of : 52 Report #: [id number] Aortic Valve AoV Peak Willie.: 1.21 m/s AO Peak Gr.: 5.86 mmHg LVOT Max P.02 mmHg LVOT Max V: 1.00 m/s TING Vmax: 2.27 cm2 Mitral Valve E/A Ratio: 0.8 MV Decel. Time: 229.39 ms MV E Max Willie.: 0.78 m/s MV A Willie.: 1.04 m/s MV PHT: 66.52 ms IVRT: 166.09 ms Pulmonary Valve PV Peak Willie.: 1.09 m/s PV Peak Gr.: 4.71 mmHg Pulmonary Vein P Vein S: 0.62 m/s P Vein A: 0.40 m/s P Vein D: 0.36 m/s P Vein A Dur.: 92.3 msec P Vein S/D Ratio: 1.72 Tricuspid Valve TR Peak Willie.: 2.98 m/s TR Peak Gr.: 35.42 mmHg PA Pressure: 40.00 mmHg Left Ventricle The left ventricle is normal size. There is normal left ventricular wall thickness. Left ventricular systolic function is borderline. LVEF is 50%. Grade I - abnormal relaxation pattern. Right Ventricle The right ventricle is normal size. The right ventricular systolic function is normal. Atria Left atrium is dilated. Right atrium is at the upper limits of normal. Aortic Valve The aortic valve is normal in structure. The Aortic valve is sclerotic. No aortic regurgitation is present. There is no aortic valvular stenosis. Mitral Valve [facility] [address] [place] [address] 2 D/M-MODE ECHOCARDIOGRAM Name: RADHAMESBIPIN JEFF Room #: 216-P [facility] IN .R.#: [id number] Admission: 08/27/21 Attend Phys: Stew Soto, Discharge: Date of : 52 Report #: [id number] The mitral valve is normal in structure. Trace mitral regurgitation. No evidence of mitral valve stenosis. Tricuspid Valve The tricuspid valve is normal in structure. There is trace tricuspid regurgitation. Estimated PAP 40 mmHg. There is mild-moderate pulmonary hypertension. Pulmonic Valve The pulmonary valve is normal in structure. There is no pulmonic valvular regurgitation. Great Vessels The aortic root is normal in size. IVC is normal in size and collapses >50% with inspiration. Pericardium Trace pericardial effusion. <Conclusion> The left ventricle is normal size. There is normal left ventricular wall thickness. LVEF is 50%. Left atrium is dilated. Right atrium is at the upper limits of normal. The aortic valve is normal in structure. The Aortic valve is sclerotic. The mitral valve is normal in structure. Trace mitral regurgitation. The tricuspid valve is normal in structure. There is trace tricuspid regurgitation. Estimated PAP 40 mmHg. There is mild-moderate pulmonary hypertension. The pulmonary valve is normal in structure. The aortic root is normal in size. Trace pericardial effusion. <ELECTRONICALLY SIGNED> By: Job Haro MD 08/28/21 1243 1243 1243 Job Haro MD /INF
--- NOTE | 2021-08-28 17:54 | NUR ---
Case opened to follow for dc planning. Pt known to cm from previous admission last year. The pt had covid and was dc'd to snf at [facility] where her dtr works. She dc'd from there to home with hh to her dtr's home as the apt where she lived with her sign other [facility] has 13+ steps to enter. Dc plan is to go home with the dtr. They are open to hh if needed at dc and deny preference and can not recall the agency from last year. She does not have home o2 anymore and is not sure whatever happened to her concentrator. She did have a rwalker in the past but does not know where it is. PT/OT evals in progress. Dtr Li available as needed for dc support. She does work during the daytime and the pt is normally indep with gait and adl's while she is at work. The pt is being treated for copd exac, HTN urgency, and chf. Referral faxed to [facility] for possible hh at dc.
--- NOTE | 2021-08-28 18:35 | NUR ---
ASSESSMENT CHARTED - MEDS PER JAN - PT STARTED ON SOLUMEDROL - AND IV ABX'S THIS SHIFT. ECHO COMPLETED. SEEN BY PT/OT THIS SHIFT. PT UP TO CHAIR THIS AM FOR A SHORT WHILE. PT WITH CO'S OF PAIN IN R ARM - STATES SHE SLEPT ON IT FUNNY - GIVEN TYLEON WITH RELIEF. FLU SHOT GIVEN THIS SHIFT. MEPLIEX REMAIINS TO R DIA C/D/I. NO CO'S AT THE PRESENT TIME.
[2021-08-28 19:37] VITALS: BP 110/48
[2021-08-29 03:51] VITALS: BP 125/63
[2021-08-29 07:58] VITALS: BP 134/59
[2021-08-29 11:26] VITALS: BP 104/59
[2021-08-29 11:40] VITALS: BP 104/59
--- NOTE | 2021-08-29 15:04 | NUR ---
DC home with hh held due to increased sob. Carpentry Instructor spoke with pt at bedside and dtr via phone. They deny hh agency preference and agreeable to use [facility]. [facility] referral confirmed and they can accept at dc. Pt was tested for home o2 and will need 2L at rest and 4L with activity. Script obtained from the attending and faxed along with the qualifying clinical to [facility]. The pt does not currently have o2 in place at home. PT saw the pt again today and recommended a FWW (jr size) for use at home. A script was also obtained and faxed to [facility]. [facility] to bring a portable tank and a fww to the pt's room prior to dc. Pt, dtr and unit rn aware. Possible dc to home with hh, o2 and fww tomorrow if her breathing is improved. Will follow.
[2021-08-29 16:06] VITALS: BP 114/62
[2021-08-29 19:25] VITALS: BP 117/62
--- NOTE | 2021-08-29 19:40 | NUR ---
ASSESSMENT CHARTED - MEDS PER JAN - GIVEN TYLENOL X 2 DOSES 1 FOR HEADACHE AND OTHER FOR BACK PAIN WITH MOD EFFECT. PT UP TO THE [facility] THIS AM - SEEN BY PHYS AND OCC THERAPY. JAVY DIET AND FLUIDS WITH NO CO'S OF NAUSEA. EXERCISE OX COMPLETED TODAY RESULTED 2 LOF 02 AT REST 4L WITH AMBULATION - PT BECOMES VERY SOB WITH MIN EXERTION. PT WOT GO HOME WITH O2 AND WALKER. CHEST XRAY DONE ORDERED. NO CO'S AT THE PRESENT TIME.
--- NOTE | 2021-08-30 04:18 | NUR ---
ASSUMED CARE OF PT AT 1900. PT IS ALERT AND ORIENTED FEMALE WITH INCREASED SOB TREATED WITH OXYGEN PER NC. PT RESTED IN ROOM THROUGHOUT THE NIGHT WITH FEW COMPLAINTS, VSS. AMBULATES TO THE BATHROOM WITH A WALKER AND OXYGEN. CONTINENT, WITH NO VERBALIZED PAIN THROUGHOUT THE NIGHT. LUNGS HAVE BILATERAL COURSE CRACKLES WITH SOME WHEEZING AND A NONPRODUCTIVE COUGH. RESTING IN ROOM, WILL CONTINUE TO MONITOR.
[2021-08-30 05:51] VITALS: BP 140/70
[2021-08-30 08:29] VITALS: BP 141/67
--- NOTE | 2021-08-30 11:54 | NUR ---
VAT CONSULTED FOR PICC. PT'S LABS ,MEDS,ORDER AND CONSENT VERIFIED. DISCUSSED BENEFITS AND RISKS OF PICC WITH PT, VERBALIZED UNDERSTANDING. BREE GOVEA WIDELY PATENT WITH USG. 4FR SL POWER PICC INSERTED X1 STICK, TRIMMED TO 36CM INSERTED TO 2CM EXTERNAL WITH PEAKED P-WAVE ON 3CG FOR CONFIRMATION. PICC RELEASED TO [facility] RODRIGUEZ PER PROTOCOL
[2021-08-30 12:08] VITALS: BP 123/60
[2021-08-30 14:19] VITALS: BP 104/59
--- NOTE | 2021-08-30 14:24 | NUR ---
No dc today as pt is still short of breath and on iv steriods. Her portable o2 tank and jr. FWW is in the room to be sent home with her at nv. She needs to call [facility] before she leaves the hospital so they can deliever her concentrator the day of dc. Hugo alexander is following along and will need dc instructions and summary faxed to them at [phone] and a call to their oncall RN if dc'd over the weekend [phone].
[2021-08-30 16:30] VITALS: BP 126/60
[2021-08-30 19:33] VITALS: BP 158/80
[2021-08-31 05:41] VITALS: BP 148/62
--- NOTE | 2021-08-31 07:47 | NUR ---
SLEPT MOST OF SHIFT PAST SLEEPING PILL. WORKING ON GOALS AND PLAN OF CARE FOR NOC. UP WITH ASSIST NEEDED. CONTINUE TO ASSES.
[2021-08-31 08:00] VITALS: BP 152/71
[2021-08-31] MEDS ORDERED: CEFUROXIME500 MG PO (08:36)
[2021-08-31] MEDS ORDERED: PREDNISONE 20 M20 MG PO (08:36)
--- NOTE | 2021-08-31 11:00 | NUR ---
PT DISCHARGING TODAY TO HOME WITH [facility] FAXED DC ORDERS/AMEE TO SPOKE WITH NAUN FROM [facility] SHE RECEIVED ORDERS AND WILL NOTIFY PT TO SET UP VISITS. NOTIFIED NURSE ON UNIT DC ORDERS FAXED.
[2021-08-31 11:30] VITALS: BP 154/71
[2021-08-31 12:13] VITALS: BP 104/59
--- NOTE | 2021-08-31 15:01 | NUR ---
DR. WILKERSON PLACED DISCHARGE ORDERS THIS MORNING. HOME OXYGEN ALREADY SET UP PER SW. RT PERFORMED REST/ACTIVITY OXYGEN EVALUATION. SHE REQUIRED 2L WITH ACTIVITY AND ROOM AIR AT REST. OXYGEN TANK FOR PATIENT TO TAKE HOME IN ROOM AND WILL BE SENT ALONG WITH A NEW WALKER. PICC AND TELEMETRY DISCONTINUED. I PROVIDED PATIENT WITH DISCHARGE INSTRUCTIONS AND RELAYED TO HER THAT SHE WILL NEED TO FOLLOW UP WITH DR. BUCHANAN WITHIN 1-2 WEEKS. QUESTIONS AND CONCERNS WERE ADDRESSED. PATIENT'S DAUGHTER ARRIVED TO PROVIDE TRANSPORTATION HOME. HOME HEALTH SET UP PER SW.
== END 2021-08-31 15:16 | disposition home health service (06) | DRG 291 ==
LOC: ER 08:54 → EROBS 12:27 → 2N 12:27
PROVIDERS: Emergency Medicine; Nurse Practitioner; ADMIT Internal Medicine; ATTEND Family Medicine
PROC: 5A0935A Assistance with Respiratory Ventilation, Less than 24 Consecutive Hours, High Flow/Velocity Cannula (ICD-10-PCS; principal; 2021-08-30)
PROC: 05HY33Z Insertion of Infusion Device into Upper Vein, Percutaneous Approach (ICD-10-PCS; principal; 2021-08-30)
DX: I11.0 Hypertensive heart disease with heart failure (principal); E43 Unspecified severe protein-calorie malnutrition; J96.20 Acute and chronic respiratory failure, unspecified whether with hypoxia or hypercapnia; I50.33 Acute on chronic diastolic (congestive) heart failure; I24.8 Other forms of acute ischemic heart disease; J44.1 Chronic obstructive pulmonary disease with (acute) exacerbation; I47.1 Supraventricular tachycardia; Z68.1 Body mass index [BMI] 19.9 or less, adult; R77.8 Other specified abnormalities of plasma proteins; I16.0 Hypertensive urgency; J44.9 Chronic obstructive pulmonary disease, unspecified; E78.5 Hyperlipidemia, unspecified; F17.210 Nicotine dependence, cigarettes, uncomplicated; R53.81 Other malaise; Z20.822 Contact with and (suspected) exposure to COVID-19; Z86.73 Personal history of transient ischemic attack (TIA), and cerebral infarction without residual deficits; Z90.49 Acquired absence of other specified parts of digestive tract; Z86.19 Personal history of other infectious and parasitic diseases; Z85.89 Personal history of malignant neoplasm of other organs and systems; Z90.710 Acquired absence of both cervix and uterus; Z86.711 Personal history of pulmonary embolism; Z88.6 Allergy status to analgesic agent; Z88.8 Allergy status to other drugs, medicaments and biological substances; Z71.6 Tobacco abuse counseling; Z79.82 Long term (current) use of aspirin; Z79.899 Other long term (current) drug therapy; Z23 Encounter for immunization
CPT/HCPCS: 10081; 27000

== ENCOUNTER 2021-10-03 07:19 | Emergency (ER) | payer OTHER ==
[~2021-10-03] VITALS: Ht 152.4 cm; Wt 36.3 kg
[2021-10-03 08:17] VITALS: BP 193/98
--- NOTE | 2021-10-03 10:13 | EKG ---
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: QUINN : 1950 Requested By: Bradly Hernandez Order Number: [id number] MD: Kal Coreas Measurements Intervals [place] Rate: 83 P: 55 [place]: 114 QRS: -10 QRSD: 88 T: 126 QT: 379 QTc: 446 Interpretive Statements Sinus rhythm Atrial premature complex Borderline short [place] interval LVH with secondary repolarization abnormality Compared to ECG 08/27/2021 12:11:30 Atrial premature complex(es) now present Electronically Signed On 10-03-2021 10:13:44 LOG CLERK by Kal Coreas [email or web address] <ELECTRONICALLY SIGNED> By: Kal Coreas MD 10/03/21 [id number] MD SARAHI Castillo
== END 2021-10-03 08:34 | disposition home or self-care (01) ==
LOC: ER 07:19
DX: S51.811A Laceration without foreign body of right forearm, initial encounter (principal); S40.011A Contusion of right shoulder, initial encounter; J44.9 Chronic obstructive pulmonary disease, unspecified; B19.20 Unspecified viral hepatitis C without hepatic coma; I10 Essential (primary) hypertension; F17.210 Nicotine dependence, cigarettes, uncomplicated; Z90.49 Acquired absence of other specified parts of digestive tract; Z90.89 Acquired absence of other organs; Z90.710 Acquired absence of both cervix and uterus; Z79.51 Long term (current) use of inhaled steroids; Z79.891 Long term (current) use of opiate analgesic; Z79.899 Other long term (current) drug therapy; Z79.82 Long term (current) use of aspirin; Z88.5 Allergy status to narcotic agent; Z88.6 Allergy status to analgesic agent; Z88.8 Allergy status to other drugs, medicaments and biological substances; W01.0XXA Fall on same level from slipping, tripping and stumbling without subsequent striking against object, initial encounter; Y93.89 Activity, other specified; Y92.89 Other specified places as the place of occurrence of the external cause; Y99.8 Other external cause status

== ENCOUNTER 2021-10-15 23:50 | Inpatient (IN) | payer OTHER ==
[~2021-10-15] VITALS: Ht 152.4 cm; Wt 41.3 kg
--- NOTE | ~2021-10-15 | EMS ---
[address] [address] EMS Patient Care Report Name: BIPIN RICCI Room #: 216-P [facility] IN M.R.#: [id number] Admission: 10/16/21 Attend Phys: Reginald Segura MD Discharge: 10/22/21 Date of : 52 Report #: [id number] THIS REPORT FOR: //name// Report Transmitted: 10/25/2021 14:00 EMS Care Summary [place], [place] Incident [id number] @ 10/15/2021 23:13 Incident Location [address] [place] [address] Patient BIPIN RICCI Female, 71 Years 1950 Patient Address [address] [place] [address] Patient History Congestive Heart Failure (CHF),Chronic Obstructive Pulmonary Disease (COPD), Patient Allergies Penicillin allergy, Patient Medications Albuterol, Chief Complaint Respiratory distress Disposition Transported No Lights/[place] Dispatch Reason Breathing Problem Transported To [facility] Narrative M42 arrived on scene to find the patient sitting upright on the couch. Patient said all day today she had felt sort of breath. Patient said she had a history [facility] [address] [place] [address] EMS Patient Care Report Name: BIPIN RICCI Room #: 216-P [facility] IN Yony#: [id number] Admission: 10/16/21 Attend Phys: Reginald Segura MD Discharge: 10/22/21 Date of : 52 Report #: [id number] of COPD and CHF. Patient was very short of breath and was placed on a nebulizer treatment while we carried her to the cot using a stair chair. Patient was placed on the cot and secured with seat belts. Patient said she was having a chest pressure as well. After the breathing treatment the patient was moved to the nasal canula. Patient said she felt like she was breathing much easier but was still short of breath. En route to the hospital no changes in the patient condition occurred. M42 arrived on scene of the hospital and patient care was transferred to the RN. Initial Vitals @23:31P: 141, @23:39P: 136,SpO2: 99, @23:41P: 209,SpO2: 97, @23:29P: 131,BP: 229/103, @23:42P: 127,CO: 2,SpO2: 99, @23:42P: 118,CO: 3, @23:25P: 122,BP: 154/90,CO: 4,SpO2: 96, @23:29P: 146,SpO2: 98, @23:25P: 135,SpO2: 97, @23:40P: 35,SpO2: 98, @23:37P: 227,CO: 0,SpO2: 100, @23:33P: 143,R: 22,BP: 201/110,Pain: 0/10,GCS: 15,CO: 3,SpO2: 96,Revised Trauma: 12, @23:23P: 140,R: 30,Pain: 0/10,GCS: 15,CO: 6,SpO2: 93, Assessments @23:19MENTAL:No Abnormalities,SKIN:No Abnormalities,HEENT:LUNG SOUNDS:General: No Abnormalities,Left Upper: No Abnormalities,Right Upper: No Abnormalities,Left Lower: No Abnormalities,Right Lower: No Abnormalities,ABDOMEN:General: No Abnormalities,Left Upper: No Abnormalities,Right Upper: No Abnormalities,Left Lower: No Abnormalities,Right Lower: No Abnormalities,PELVIS//GI:No Abnormalities,EXTREMITIES:Left Arm: No Abnormalities,Right Arm: No Abnormalities,Left Leg: No Abnormalities,Right Leg: No Abnormalities,PULSE:NEURO:No Abnormalities,@23:31MENTAL:No Abnormalities,SKIN:No Abnormalities,HEENT:Head/Face: No Abnormalities,Eyes: No Abnormalities,Neck/Airway: No Abnormalities,LUNG SOUNDS:General: No Abnormalities,Left Upper: No Abnormalities,Right Upper: No Abnormalities,Left Lower: No Abnormalities,Right Lower: No Abnormalities,ABDOMEN:General: No Abnormalities,Left Upper: No Abnormalities,Right Upper: No Abnormalities,Left Lower: No Abnormalities,Right Lower: No Abnormalities,PELVIS//GI:No Abnormalities,EXTREMITIES:Left Arm: No Abnormalities,Right Arm: No Abnormalities,Left Leg: No Abnormalities,Right Leg: No Abnormalities,PULSE:NEURO:No Abnormalities, Impression Acute Respiratory Distress (Dyspnea) [address] [address] EMS Patient Care Report Name: BIIPN RICCI Room #: 216-P [facility] IN M.R.#: [id number] Admission: 10/16/21 Attend Phys: Reginald Segura MD Discharge: 10/22/21 Date of : 52 Report #: [id number] Procedures @23:42 12-Lead ECG Response: UnchangedSucceeded @23:19 ALS Assessment Response: UnchangedSucceeded @23:27 IV Therapy - Saline Lock 10cc (20 ga) Site: Forearm-Left Response: UnchangedSucceeded @23:23 Albuterol - 2.5 Milligrams (mg) - Nebulized Response: Improved @23:23 Oxygen FlowRate: 8 Device: Nebulizer Response: ImprovedSucceeded @23:30 Solu-Medrol - 125 Milligrams (mg) - Intravenous (IV) Response: Unchanged Timeline 23:12,Call Received 23:12,Dispatch Notified 23:13,Dispatched 23:14,En Route 23:18,On Scene 23:19,At Patient 23:19,ALS Assessment,Response: UnchangedSucceeded, 23:23,Albuterol - 2.5 Milligrams (mg) - Nebulized,Response: Improved 23:23,Oxygen FlowRate: 8 Device: Nebulizer Response: ImprovedSucceeded, 23:23,BP: / M,PULSE: 140,RR: 30 R,SPO2: 93 Ox,ETCO2: ,BG: ,PAIN: 0,GCS: 15, 23:25,BP: 154/90 M,PULSE: 122,RR: R,SPO2: 96 Ox,ETCO2: ,BG: ,PAIN: ,GCS: , 23:25,BP: / M,PULSE: 135,RR: R,SPO2: 97 Ox,ETCO2: ,BG: ,PAIN: ,GCS: , 23:27,IV Therapy - Saline Lock 10cc 20 ga Site: Forearm-Left,Response: UnchangedSucceeded, 23:29,BP: / M,PULSE: 146,RR: R,SPO2: 98 Ox,ETCO2: ,BG: ,PAIN: ,GCS: , 23:29,BP: 229/103 M,PULSE: 131,RR: R,SPO2: Ox,ETCO2: ,BG: ,PAIN: ,GCS: , 23:30,Solu-Medrol - 125 Milligrams (mg) - Intravenous (IV),Response: Unchanged 23:31,BP: / M,PULSE: 141,RR: R,SPO2: Ox,ETCO2: ,BG: ,PAIN: ,GCS: , 23:33,BP: 201/110 M,PULSE: 143,RR: 22 R,SPO2: 96 Ox,ETCO2: ,BG: ,PAIN: 0,GCS: 15, 23:37,BP: / M,PULSE: 227,RR: R,SPO2: 100 Ox,ETCO2: ,BG: ,PAIN: ,GCS: , 23:39,BP: / M,PULSE: 136,RR: R,SPO2: 99 Ox,ETCO2: ,BG: ,PAIN: ,GCS: , 23:39,Depart Scene 23:40,BP: / M,PULSE: 35,RR: R,SPO2: 98 Ox,ETCO2: ,BG: ,PAIN: ,GCS: , 23:41,BP: / M,PULSE: 209,RR: R,SPO2: 97 Ox,ETCO2: ,BG: ,PAIN: ,GCS: , 23:42,BP: / M,PULSE: 127,RR: R,SPO2: 99 Ox,ETCO2: ,BG: ,PAIN: ,GCS: , 23:42,12-Lead ECG,Response: UnchangedSucceeded, 23:42,BP: / M,PULSE: 118,RR: R,SPO2: Ox,ETCO2: ,BG: ,PAIN: ,GCS: , 23:58,At Destination 00:13,Call Closed Disclaimer v1.1 Copyright 2020 [employer] This EMS Care Summary contains data elements from the applicable legal record [facility] [address] [place] [address] EMS Patient Care Report Name: BIPIN RICCI JEFF Room #: 216-P [facility] IN M.R.#: [id number] Admission: 10/16/21 Attend Phys: Reginald Segura MD Discharge: 10/22/21 Date of : 52 Report #: [id number] (which may be displayed differently). It is designed to provide pertinent information for the following purposes: continuity of care, clinical quality, and state data reporting. The complete legal record is available to ED staff and administrators of the receiving hospital in [facility]'s Patient Tracker. All data is provided "as is."
[2021-10-15 23:55] VITALS: BP 225/112
[2021-10-16] MEDS ORDERED: LIPITOR 40 MG T40 M1 PO (00:04)
[2021-10-16] MEDS ORDERED: CARVEDILOL25 MG PO (00:04)
[2021-10-16] MEDS ORDERED: COMBIVENT RESPIM4 GM INH (00:04)
[2021-10-16 00:15] LABS: BASOPHILS 0.7 % (0.0-2.0); EOSINOPHILS 0.5 % (0.0-3.0); HEMATOCRIT 28.8 % (37.0-47.0); LYMPHOCYTES 12.4 % (24.0-44.0); MCH 31.4 pg (26.0-34.0); MCHC 31.3 g/dL (28.0-37.0); MCV 100.2 fL (80.0-100.0); PLATELET COUNT 271 thou/uL (150-400); POLYS 80.4 % (36.0-66.0); RBC 2.87 mil/uL (4.20-5.00); RDW 16.6 % (10.5-14.5); WBC 11.2 thou/uL (4.0-11.0)
[2021-10-16 00:19] LABS: BE(vivo) -5.7 mmol/L (-2 to +3); HCO3 20.3 mmol/L (22.0-26.0); PCO2 42.2 mmHg (35.0-45.0); PO2 166.8 mmHg (80.0-100.0)
[2021-10-16 00:20] LABS: CALCIUM 8.9 mg/dL (8.5-10.1); CREATININE 1.3 mg/dL (0.6-1.0); POTASSIUM 4.1 mmol/L (3.5-5.1)
[2021-10-16 00:21] LABS: pH 7.301 (7.360-7.450)
[2021-10-16 00:22] LABS: APTT 27.3 Seconds (24.5-32.8); INR 1.07; PROTIME 11.6 Seconds (10.5-12.1)
[2021-10-16 00:30] LABS: ALBUMIN 3.1 g/dL (3.4-5.0); TOTAL BILIRUBIN 0.3 mg/dL (0.2-1.0); TOTAL PROTEIN 7.4 g/dL (6.4-8.2)
[2021-10-16 11:52] LABS: BE(vivo) -2.3 mmol/L (-2 to +3); HCO3 22.6 mmol/L (22.0-26.0); PCO2 39.3 mmHg (35.0-45.0); pH 7.378 (7.360-7.450); sO2 96.3 % (92.0-98.0)
[2021-10-16 15:41] VITALS: BP 148/78
[2021-10-16 15:48] VITALS: BP 148/78
--- NOTE | 2021-10-16 16:26 | NUR ---
PATIENT ARRIVED TO UNIT FROM ED VIA BED ASSISTED BY A EYE SPECIALIST. PATIENT ARRIVED INCONTINENT AND SOB, IN TRIPOD POSITIONING. PUREWICK WAS REPLACED AND PATIENT WAS CLEANED. PATIENT NOW LYING COMFORTABLY IN BED.
[2021-10-16 16:30] VITALS: BP 150/74
[2021-10-16 20:00] VITALS: BP 140/67
[2021-10-17 02:46] LABS: CALCIUM 8.4 mg/dL (8.5-10.1); CREATININE 1.7 mg/dL (0.6-1.0); POTASSIUM 3.6 mmol/L (3.5-5.1)
[2021-10-17 03:19] LABS: HEMATOCRIT 22.8 % (37.0-47.0); HEMOGLOBIN 7.5 gm/dL (12.0-15.0); MCH 32.1 pg (26.0-34.0); MCHC 32.8 g/dL (28.0-37.0); MCV 97.9 fL (80.0-100.0); RBC 2.33 mil/uL (4.20-5.00); RDW 16.3 % (10.5-14.5)
[2021-10-17 04:33] VITALS: BP 129/71
--- NOTE | 2021-10-17 04:52 | NUR ---
RECEIEVED PATIENT AT 1900[facility].ASSESSMENT DONE CHARTED.MEDS PER JAN.HAD COMPLAINTS OF HEADACHE, PRN TYLENOL GIVEN.ALL NEEDS ATTENDED.TO CONTINOUSLY MONITOR.
[2021-10-17 08:00] VITALS: BP 137/70
--- NOTE | 2021-10-17 08:30 | EKG ---
[address] [place] [address] ELECTROCARDIOGRAM REPORT Name: BIPIN RICCI JEFF Room #: 216-P ADM IN M.R.#: [id number] Admission: 10/16/21 Attend Phys: Reginald Segura MD Discharge: Date of : 52 Report #: [id number] [facility] ED Test Date: 2021-10-16 Test Time: 00:41:26 Pat Name: BIPIN RICCI Department: Room: 216 Gender: F Stripper And Taper: amanuel : 1950 Requested By: Nicolas Meyer Order Number: [id number] MD: Armando Falcon Measurements Intervals [place] Rate: 99 P: 75 DC: 117 QRS: -3 QRSD: 83 T: 128 QT: 349 QTc: 448 Interpretive Statements Sinus tachycardia Frequent atrial premature complexes LVH with secondary repolarization abnormality Compared to ECG 10/03/2021 07:38:00 Atrial premature complexes are now present Electronically Signed On 10-17-2021 8:30:05 GAS WELL DRILLING MANAGER by Armando Falcon [email or web address] <ELECTRONICALLY SIGNED> By: Armando Falcon MD, [facility] 10/17/21829 Armando Falcon MD, [facility] /EPI
[2021-10-17 11:50] VITALS: BP 131/56
[2021-10-17 12:27] LABS: HEMATOCRIT 23.6 % (37.0-47.0); HEMOGLOBIN 7.7 gm/dL (12.0-15.0); MCH 32.1 pg (26.0-34.0); MCHC 32.5 g/dL (28.0-37.0); MCV 98.7 fL (80.0-100.0); RBC 2.39 mil/uL (4.20-5.00); RDW 16.8 % (10.5-14.5)
[2021-10-17 15:40] VITALS: BP 113/43
--- NOTE | 2021-10-17 17:20 | NUR ---
Patient admits with SOA. Patient with recent dc OCT 23 with HH care from [facility] and new oxygen set up with [facility]. Patient reports she lives in independent apt with s/o Hermes and cat. 16 sets with rail to enter apt. Patient reports if going up steps and soa she takes rest break. 3 children 2 in area who are all supportive. Patient agreeable with [facility] HH care at discharge she reports they stopped seeing her a couple of weeks ago. [facility] following
[2021-10-17 19:43] VITALS: BP 101/56
[2021-10-18 03:28] VITALS: BP 125/64
[2021-10-18 04:55] LABS: MAGNESIUM 2.1 mg/dL (1.8-2.4); POTASSIUM 3.8 mmol/L (3.5-5.1)
[2021-10-18 05:17] LABS: CREATININE 2.8 mg/dL (0.6-1.0)
--- NOTE | 2021-10-18 05:21 | NUR ---
ASSESSMENTS CHARTED. RESTING IN BED DURING SHIFT. USING BEDPAN. ON ABX THERAPY. NO CURRENT PLANS FOR GOING HOME.
[2021-10-18 05:27] LABS: HEMATOCRIT 21.1 % (37.0-47.0); MCH 32.7 pg (26.0-34.0); MCHC 33.3 g/dL (28.0-37.0); MCV 98.3 fL (80.0-100.0); RBC 2.14 mil/uL (4.20-5.00); RDW 16.6 % (10.5-14.5); WBC 10.8 thou/uL (4.0-11.0)
[2021-10-18 07:40] VITALS: BP 136/64
[2021-10-18 12:06] VITALS: BP 116/51
[2021-10-18 12:38] LABS: HEMOGLOBIN 7.3 gm/dL (12.0-15.0); MCH 32.6 pg (26.0-34.0); MCHC 33.2 g/dL (28.0-37.0); MCV 98.2 fL (80.0-100.0); RBC 2.24 mil/uL (4.20-5.00); RDW 16.6 % (10.5-14.5); WBC 11.8 thou/uL (4.0-11.0)
--- NOTE | 2021-10-18 15:17 | NUR ---
Patient evaled for 5N and patient denies wanting to transfer to rehab. Plan home with care. Patient on service with [facility] care. If discharge over weekend. Call [facility] to alert of discharge. [phone] and fax orders to [phone]
[2021-10-18 15:27] VITALS: BP 116/51
[2021-10-18 15:35] VITALS: BP 121/62
[2021-10-18 20:15] VITALS: BP 120/57
[2021-10-19 04:22] LABS: HEMOGLOBIN 7.2 gm/dL (12.0-15.0); MCH 32.1 pg (26.0-34.0); MCHC 32.7 g/dL (28.0-37.0); MCV 98.2 fL (80.0-100.0); RBC 2.24 mil/uL (4.20-5.00); RDW 16.7 % (10.5-14.5); WBC 9.7 thou/uL (4.0-11.0)
[2021-10-19 04:40] LABS: CALCIUM 7.9 mg/dL (8.5-10.1); CREATININE 2.5 mg/dL (0.6-1.0); MAGNESIUM 2.2 mg/dL (1.8-2.4); POTASSIUM 3.2 mmol/L (3.5-5.1)
[2021-10-19 04:45] VITALS: BP 133/72; BP 148/106
--- NOTE | 2021-10-19 05:28 | NUR ---
ASSESSMENTS CHARTED, MEDS CHARTED GIVEN. PATIENT SLEPT WELL DURING SHIFT. COUGH IS BECOMING LOOSE. SPUTUM AND STOOL SAMPLES WERE SENT TO LAB. USED BEDPAN DURING NIGHT. PER DAY NURSE FAMILY IS LEANING TOWARD [facility] FACILITY THINKING PATIENT IS NOT STRONG ENOUGH TO LIVE ALONE ANYMORE. PATIENT DOES NOT WANT TO GO TO REHAB, SHE WANTS TO BE HOME.
[2021-10-19 07:46] VITALS: BP 131/66
[2021-10-19 11:47] VITALS: BP 138/58
[2021-10-19 15:41] LABS: FOLIC ACID 6.9 ng/mL (8.6-58.9)
[2021-10-19 16:17] VITALS: BP 123/67
[2021-10-19 20:05] VITALS: BP 126/66
[2021-10-20 03:13] LABS: HEMATOCRIT 22.7 % (37.0-47.0); HEMOGLOBIN 7.4 gm/dL (12.0-15.0); MCH 32.5 pg (26.0-34.0); MCHC 32.6 g/dL (28.0-37.0); MCV 99.8 fL (80.0-100.0); RBC 2.28 mil/uL (4.20-5.00); RDW 16.4 % (10.5-14.5); WBC 8.6 thou/uL (4.0-11.0)
[2021-10-20 03:24] LABS: CALCIUM 7.9 mg/dL (8.5-10.1); CREATININE 1.9 mg/dL (0.6-1.0); MAGNESIUM 2.1 mg/dL (1.8-2.4)
[2021-10-20 05:28] VITALS: BP 125/66
--- NOTE | 2021-10-20 05:41 | NUR ---
ASSESSMENTS CHARTED, MEDS CHARTED GIVEN. SITTING IN CHAIR AT START OF SHIFT. MOVED TO BED. IN BED. NEW IV IN RT UPPER ARM, MAINTENANCE FLUID. ABX THERAPY.
[2021-10-20 07:43] VITALS: BP 155/78
[2021-10-20 11:10] VITALS: BP 157/75
[2021-10-20 15:45] VITALS: BP 141/83
--- NOTE | 2021-10-20 18:34 | NUR ---
ASSESSMENT CHARTED . MEDS PER MAR - JAVY DIET AND FLUIDS. UP IN ROOM TOLERATED - UP TO BATHROOM., NO CO'S OF NASUEA - GIVEN TYLENOL X 1 DOSE FOR BACK PAIN WITH MOD EFFECT. ACCUCHECKS CHARTED - COVERED PER SSI. SOB WITH EXERTION - NO CO'S AT THE PRESENT TIME.
[2021-10-20 19:42] VITALS: BP 131/73
[2021-10-21 03:56] LABS: HEMATOCRIT 22.2 % (37.0-47.0); HEMOGLOBIN 7.1 gm/dL (12.0-15.0); MCH 32.2 pg (26.0-34.0); MCHC 32.2 g/dL (28.0-37.0); MCV 100.1 fL (80.0-100.0); RBC 2.22 mil/uL (4.20-5.00); RDW 16.3 % (10.5-14.5)
--- NOTE | 2021-10-21 04:14 | NUR ---
PT BEEN RESTING IN NO ACUTE DISTRESS.A/OX4.VSS.SA/SB/PVCS ON MONITOR.ON O2 AT 2LITERS/NC,SATS ADEQUATE.SOB W/EXERTION DURING BR.C/O BACK PAIN THAT WAS CONTROLLED WITH TYLENOL.POC IS TO TRANSFER PT TO REHAB 5N WHEN MEDICALLY STABLE.ASSESSMENT COMPLETED DOCUMENTED.
[2021-10-21 04:15] LABS: CALCIUM 7.5 mg/dL (8.5-10.1); CREATININE 1.9 mg/dL (0.6-1.0); MAGNESIUM 2.2 mg/dL (1.8-2.4); POTASSIUM 3.9 mmol/L (3.5-5.1)
[2021-10-21 05:52] VITALS: BP 172/89
[2021-10-21 06:33] VITALS: BP 158/78
[2021-10-21 08:00] VITALS: BP 175/89
[2021-10-21 08:47] LABS: % SATURATION 9 % (20-39); IRON 25 ug/dL (50-170); TIBC 287 ug/dL (250-450)
[2021-10-21 11:55] VITALS: BP 175/75
[2021-10-21 15:55] VITALS: BP 140/68
--- NOTE | 2021-10-21 16:29 | NUR ---
REFERRAL SENT ON THURSDAY TO [facility]. FEDERICO WITH [facility] CAME AND COMPLETED ONSITE EVAL THIS DAY. THEY HAVE ACCEPTED HER FOR SKILLED POST ACUTE CARE WITH POSSIBLE LTC PLACEMENT. PT IS AGREEABLE IWTH [facility]. INITIALLY SHE DID NOT WANT HER DAUGHTER TO MAKE A DECISION ON THE PLACE. HOWEVER WHEN PT SPOKE TO LIASON PT WAS AGREEABLE TO [facility]. CALLED GEORGIE IN ROOM FOR PT AND DAUGHTER TO DISCUSS POSSIBLE TRANSFER TO [facility]. CM FOLLOWING.
[2021-10-21 20:00] VITALS: BP 162/75
[2021-10-22 04:00] VITALS: BP 177/87
--- NOTE | 2021-10-22 05:53 | NUR ---
ASSESSMENTS CHARTED, MEDS CHARTED GIVEN. ON MAINTENANCE FLUIDS. ABX THERAPY. PATIENT TO DISCHARGE TO REHAB IN AM.
[2021-10-22 07:55] VITALS: BP 186/92
[2021-10-22 11:15] VITALS: BP 175/93
[2021-10-22 12:27] LABS: HEMATOCRIT 24.8 % (37.0-47.0); HEMOGLOBIN 8.1 gm/dL (12.0-15.0); MCH 31.7 pg (26.0-34.0); MCHC 32.4 g/dL (28.0-37.0); MCV 97.9 fL (80.0-100.0); RBC 2.54 mil/uL (4.20-5.00); RDW 16.4 % (10.5-14.5); WBC 14.8 thou/uL (4.0-11.0)
--- NOTE | 2021-10-22 12:36 | NUR ---
REPORT CALLED TO KELLI RODRIGUEZ. KELLI STATED SHE DID NOT HAVE ADDITIONAL QUESTIONS, PHONE NUMBER TO CCU WAS PROVIDED FOR ANY FURTHER QUESTIONS.
[2021-10-22 12:39] LABS: CREATININE 1.6 mg/dL (0.6-1.0); MAGNESIUM 1.9 mg/dL (1.8-2.4); POTASSIUM 4.1 mmol/L (3.5-5.1)
[2021-10-22] MEDS ORDERED: HYDRALAZINE 2525 MG PO (13:11)
[2021-10-22] MEDS ORDERED: IRON325 PO (13:11)
[2021-10-22] MEDS ORDERED: MUCINEX600 MG PO (13:12)
[2021-10-22] MEDS ORDERED: MIRALAX17 GM PO (13:12)
[2021-10-22] MEDS ORDERED: FOLIC ACID1 MG PO (13:13)
[2021-10-22] MEDS ORDERED: B-12500 MCG PO (13:13)
[2021-10-22] MEDS ORDERED: PREDNISONE 10 M10 MG PO (13:15)
[2021-10-22] MEDS ORDERED: AUGMENTIN 875-1 EACH PO (13:18)
--- NOTE | 2021-10-22 14:18 | NUR ---
patient stable to dc to [facility] today. Chart copied. Transfer forms faxed. van transport arranged by [facility] for 1500. Notified patient and dtr who are in agreement with plan.
[2021-10-22 14:37] VITALS: BP 175/93
--- NOTE | 2021-10-22 15:48 | NUR ---
DISCHARGED PATIENT TO [facility], REMOVED IV WITH TIP INTACT, REMOVED WHARF HAND. ASSISSTED PATIENT PACKING UP HER BELONGINGS. EXPLAINED DISCHARGE INSTRUCTIONS TO PATIENT AND CALLED REPORT TO FACILITY. PT WAS TAKING OFF UNIT VIA TRANSPORTS WHEEL CHAIR.
== END 2021-10-22 15:46 | DRG 871 ==
LOC: ER 23:50 → EROBS 10-16 01:31 → 2N 10-16 01:31
PROVIDERS: Emergency Medicine; Hospitalist; Nurse Practitioner Family; ADMIT Internal Medicine; ATTEND Internal Medicine
PROC: 5A09357 Assistance with Respiratory Ventilation, Less than 24 Consecutive Hours, Continuous Positive Airway Pressure (ICD-10-PCS; principal; 2021-10-16)
DX: A41.9 Sepsis, unspecified organism (principal); J96.21 Acute and chronic respiratory failure with hypoxia; E43 Unspecified severe protein-calorie malnutrition; J18.9 Pneumonia, unspecified organism; I50.43 Acute on chronic combined systolic (congestive) and diastolic (congestive) heart failure; N17.9 Acute kidney failure, unspecified; J44.1 Chronic obstructive pulmonary disease with (acute) exacerbation; I13.0 Hypertensive heart and chronic kidney disease with heart failure and stage 1 through stage 4 chronic kidney disease, or unspecified chronic kidney disease; J44.0 Chronic obstructive pulmonary disease with (acute) lower respiratory infection; Z20.822 Contact with and (suspected) exposure to COVID-19; E78.5 Hyperlipidemia, unspecified; F17.210 Nicotine dependence, cigarettes, uncomplicated; N18.30 Chronic kidney disease, stage 3 unspecified; D64.9 Anemia, unspecified; G40.909 Epilepsy, unspecified, not intractable, without status epilepticus; R53.81 Other malaise; E53.8 Deficiency of other specified B group vitamins; Z86.73 Personal history of transient ischemic attack (TIA), and cerebral infarction without residual deficits; Z90.49 Acquired absence of other specified parts of digestive tract; Z86.19 Personal history of other infectious and parasitic diseases; Z90.710 Acquired absence of both cervix and uterus; Z85.89 Personal history of malignant neoplasm of other organs and systems; Z88.6 Allergy status to analgesic agent; Z88.8 Allergy status to other drugs, medicaments and biological substances; Z82.49 Family history of ischemic heart disease and other diseases of the circulatory system; Z83.6 Family history of other diseases of the respiratory system; Z71.6 Tobacco abuse counseling; Z79.82 Long term (current) use of aspirin; Z79.899 Other long term (current) drug therapy
CPT/HCPCS: 10081

== ENCOUNTER 2021-10-23 16:11 | Emergency (ER) | payer OTHER ==
[~2021-10-23] VITALS: Ht 152.4 cm; Wt 44.5 kg
--- NOTE | ~2021-10-23 | EMS ---
[address] [address] EMS Patient Care Report Name: BIPIN RICCI Room #: DEP JOE Bhakta#: [id number] Admission: 10/23/21 Attend Phys: Discharge: 10/23/21 Date of : 52 Report #: [id number] THIS REPORT FOR: //name// Report Transmitted: 10/24/2021 06:32 EMS Care Summary [facility] Incident [id number] @ 10/23/2021 15:16 Incident Location [address] [facility] 15 Patient BIPIN RICCI Female, 71 Years 1950 Patient Address [address] [place] [address] Patient History Dementia,Hypertension (HTN),Atrial Fibrillation, Patient Allergies Aspirin,Codeine,Dilantin, Patient Medications Trazodone, Chief Complaint shortness of breath Disposition Transported No Lights/[place] Dispatch Reason Breathing Problem Transported To [facility] Narrative Dispatch: [employer] Squad # [id number] dispatched emergent to the listed location on a report of breathing problem [facility] [address] [place] [address] EMS Patient Care Report Name: BIPIN RICCI [id number] Admission: 10/23/21 Attend Phys: Discharge: 10/23/21 Date of : 52 Report #: [id number] Chief condition: SOA History of Event: EMS arrived to find 71 yo female laying in hospital bed Ox1 self due to dementia in tripod position c/o SOA and chest discomfort . family was on scene and reported that the patient and family had been trying to get help for since 1 . when the family arrived the patient was in distress and called 911. upon EMS arrival nursing staff was unaware of our arrival and unable to be found until directly before transport but nursing staff was notified of the patient departure to the hospital . History gathering was delayed due to having no documentation of the patient medical history or medications or recent treatments. transport of the patient was not delayed due to documentation not being present at scene. pt room air SPO2 was 98% but displayed signs of distress . pt lung sounds reveled rhonchi but pt could move air adequately. pt reports increased pain on inspiration to her chest and reports coughing for some time before EMS arrival. no accessory muscle use was seen but patients work of breathing was abnormal . pt family requests transport to [facility] for further evaluation . pt reported relief with nebulizer treatment pt was treated and transport with improvement in condition to [facility] . Assessment: Initial Exam: Patient presents fully alert. GCS 14 per base line . Airway is self-maintained. Respirations are spontaneous, adequate and non-labored. Skin is pink/warm/dry. Radial pulse is strong and regular. Pt is oriented x1 per baseline HEENT: EENT intact and clear; Pupils are equal, round, reactive to light, denies dizziness Neuro: Pt. is oriented and appropriate, with no deficits noted. No facial droop noted, speech is not slurred, No arm drift, gold frame assembler/push/pulls are equal/symmetric. Neck: No JVD noted. Trachea is midline. No complaints. Chest: equal rise and fall, reports chest pain / pressure upon breathing Lungs: rhonchi to auscultation bilaterally, adequate air movement. Abdomen: Non-distended/soft, non-tender no guarding present. GI/: No incontinence / normal. [facility] [address] [place] [address] EMS Patient Care Report Name: BIPIN RICCI JEFF Room #: DEP [facility]#: [id number] Admission: 10/23/21 Attend Phys: Discharge: 10/23/21 Date of : 52 Report #: [id number] Pelvis: Stable/non-tender. Back - Non-tender, no complaints. Extremities Upper: Noted to have adequate PMS, 20 GA established left forearm Extremities Lower: Noted to have adequate PMS, without edema. Rx: Assessment , vitals monitoring, cardiac monitoring , 12 lead , IV access 20 GA left AC, nebulized albuterol and ipratropium treatment , ETCO2 monitoring , safe transport Transport: Responded urgently. Unit arrived. Pt assessment, vitals obtained, pt consent for transport, patient moved to cot by Preston lift , secured semi linda's with safety straps x3 and blanket. Cot secured in ambulance. vitals and director medicare sales, IV 20 GA. Transport initiated. Comfort care provided. Patient report given to receiving facility prior to arrival, no acute changes with pt tolerating all interventions / medications administered. Report to and care assumed by nurse signed on consent form. Pt moved to hospital bed ED room. EOR [id number] Herbert Lema [employer] Initial Vitals @15:35P: 79,SpO2: 95, @15:36P: 82,SpO2: 98, @15:36P: 175,SpO2: 98, @15:32P: 75,SpO2: 95, @15:53P: 72,EtCO2: 6,SpO2: 93, @15:40P: 82, @15:45P: 214,EtCO2: 4,SpO2: 98, @15:50P: 70,R: 20,EtCO2: 11,SpO2: 95, @15:36GCS: 14, @15:49P: 72,R: 22,BP: 168/92,Pain: 0/10,GCS: 14,EtCO2: 12,SpO2: 96,Revised Trauma: 12,CO Suspected: false @15:55P: 72,R: 22,BP: 156/88,GCS: 14,SpO2: 95,Revised Trauma: 12,CO Suspected: false @15:30P: 87,R: 24,Pain: 0/10,GCS: 14,SpO2: 95, @15:55P: 71,R: 21,GCS: 14,EtCO2: 8,SpO2: 95, @15:33P: 73,R: 20,BP: 152/84,Pain: 0/10,GCS: 14,SpO2: 95,Revised Trauma: 12, @PTAP: 90,R: 22,Pain: 0/10,GCS: 14,SpO2: 98, [facility] [address] [place] [address] EMS Patient Care Report Name: BIPIN RICCI JEFF [facility] [id number] Admission: 10/23/21 Attend Phys: Discharge: 10/23/21 Date of : 52 Report #: [id number] Impression Shortness of breath Procedures @15:36 12-Lead ECG @15:37 IV Therapy - Saline Lock 10cc (20 ga) Site: Forearm-Left Response: UnchangedSucceeded @15:25 ALS Assessment Response: UnchangedSucceeded @15:33 3-Lead ECG Response: UnchangedSucceeded @15:35 Albuterol - 2.5 Milligrams (mg) - Nebulized Response: Improved @15:35 Atrovent - 0.5 Milligrams (mg) - Nebulized Response: Improved @PTAOxygen @15:35 Oxygen FlowRate: 8 Device: Nebulizer Response: UnchangedSucceeded Timeline WASHHOUSE WORKER,Oxygen WASHHOUSE WORKER,BP: / M,PULSE: 90,RR: 22 R,SPO2: 98 Ox,ETCO2: ,BG: ,PAIN: 0,GCS: 14, 15:14,Call Received 15:14,Psap Call 15:16,Dispatched 15:18,En Route 15:20,Initial Responder On Scene 15:23,On Scene 15:25,At Patient 15:25,ALS Assessment,Response: UnchangedSucceeded, 15:30,BP: / M,PULSE: 87,RR: 24 R,SPO2: 95 Ox,ETCO2: ,BG: ,PAIN: 0,GCS: 14, 15:32,BP: / M,PULSE: 75,RR: R,SPO2: 95 Ox,ETCO2: ,BG: ,PAIN: ,GCS: , 15:33,3-Lead ECG,Response: UnchangedSucceeded, 15:33,BP: 152/84 M,PULSE: 73,RR: 20 R,SPO2: 95 Ox,ETCO2: ,BG: ,PAIN: 0,GCS: 14, 15:35,Albuterol - 2.5 Milligrams (mg) - Nebulized,Response: Improved 15:35,Atrovent - 0.5 Milligrams (mg) - Nebulized,Response: Improved 15:35,Oxygen FlowRate: 8 Device: Nebulizer Response: UnchangedSucceeded, 15:35,BP: / M,PULSE: 79,RR: R,SPO2: 95 Ox,ETCO2: ,BG: ,PAIN: ,GCS: , 15:36,12-Lead ECG, 15:36,BP: / M,PULSE: ,RR: R,SPO2: Ox,ETCO2: ,BG: ,PAIN: ,GCS: 14, 15:36,BP: / M,PULSE: 82,RR: R,SPO2: 98 Ox,ETCO2: ,BG: ,PAIN: ,GCS: , 15:36,BP: / M,PULSE: 175,RR: R,SPO2: 98 Ox,ETCO2: ,BG: ,PAIN: ,GCS: , 15:37,IV Therapy - Saline Lock 10cc 20 ga Site: Forearm-Left,Response: UnchangedSucceeded, 15:37,Depart Scene 15:40,BP: / M,PULSE: 82,RR: R,SPO2: Ox,ETCO2: ,BG: ,PAIN: ,GCS: , 15:45,BP: / M,PULSE: 214,RR: R,SPO2: 98 Ox,ETCO2: 4 ,BG: ,PAIN: ,GCS: , 15:49,BP: 168/92 M,PULSE: 72,RR: 22 R,SPO2: 96 Ox,ETCO2: 12 ,BG: ,PAIN: 0,GCS: [facility] [address] [place] [address] EMS Patient Care Report Name: BIPIN RICCI Room #: DEP Yony#: [id number] Admission: 10/23/21 Attend Phys: Discharge: 10/23/21 Date of : 52 Report #: [id number] 14, 15:50,BP: / M,PULSE: 70,RR: 20 R,SPO2: 95 Ox,ETCO2: 11 ,BG: ,PAIN: ,GCS: , 15:53,BP: / M,PULSE: 72,RR: R,SPO2: 93 Ox,ETCO2: 6 ,BG: ,PAIN: ,GCS: , 15:55,BP: / M,PULSE: 71,RR: 21 R,SPO2: 95 Ox,ETCO2: 8 ,BG: ,PAIN: ,GCS: 14, 15:55,BP: 156/88 M,PULSE: 72,RR: 22 R,SPO2: 95 Ox,ETCO2: ,BG: ,PAIN: ,GCS: 14, 15:57,At Destination 16:00,Transfer Patient 16:44,Call Closed Disclaimer v1.1 Copyright 2020 [employer] This EMS Care Summary contains data elements from the applicable legal record (which may be displayed differently). It is designed to provide pertinent information for the following purposes: continuity of care, clinical quality, and state data reporting. The complete legal record is available to ED staff and administrators of the receiving hospital in [employer]'s Patient Tracker. All data is provided "as is."
[~2021-10-23 16:11] MED LIST changes: +AUGMENTIN 875-1 EACH PO; +B-12500 MCG PO; +CARVEDILOL25 MG PO; +COMBIVENT RESPIM4 GM INH; +FOLIC ACID1 MG PO; +HYDRALAZINE 2525 MG PO; +IRON325 PO; +LIPITOR 40 MG T40 M1 PO
[2021-10-23 16:12] VITALS: BP 162/72
[2021-10-23 16:42] LABS: HEMATOCRIT 25.8 % (37.0-47.0); HEMOGLOBIN 8.4 gm/dL (12.0-15.0); MCH 31.8 pg (26.0-34.0); MCHC 32.7 g/dL (28.0-37.0); MCV 97.5 fL (80.0-100.0); PLATELET COUNT 343 thou/uL (150-400); RBC 2.65 mil/uL (4.20-5.00); RDW 15.9 % (10.5-14.5); WBC 14.8 thou/uL (4.0-11.0)
--- NOTE | 2021-10-23 17:25 | NUR ---
[facility] [phone]
[2021-10-23 17:54] LABS: ABSOLUTE NEUTROPHILS 14.2 thou/uL (1.4-8.2); METAMYELOCYTES 1 %
[2021-10-23 18:15] LABS: CALCIUM 8.1 mg/dL (8.5-10.1); CREATININE 1.5 mg/dL (0.6-1.0)
[2021-10-23 22:49] VITALS: BP 193/75
--- NOTE | 2021-10-24 07:14 | EKG ---
[place] [address] [facility] [place] [address] ELECTROCARDIOGRAM REPORT Name: RADHAMESBIPIN Room #: [facility]P [facility] [id number] Admission: 10/23/21 Attend Phys: Discharge: 10/23/21 Date of : 52 Report #: [id number] [facility] ED Test Date: 2021-10-23 Test Time: 16:17:49 Pat Name: BIPIN RICCI Department: Room: [facility] Gender: F Straddle Truck Driver: carole : 1950 Requested By: Marci Fry Order Number: [id number] MD: Eladio Cason Measurements Intervals Babb Rate: 71 P: 74 SC: 121 QRS: -5 QRSD: 89 T: 119 QT: 392 QTc: 426 Interpretive Statements Sinus rhythm Atrial premature complexes Borderline repolarization abnormality Compared to ECG 10/16/2021 00:41:26 Sinus tachycardia no longer present Left ventricular hypertrophy no longer present Electronically Signed On 10-24-2021 7:14:17 CIVIL ENGINEERING PROJECT DESIGNER by Eladio Cason [email or web address] <ELECTRONICALLY SIGNED> By: Eladio Cason MD, [facility] 10/24/21 0714 D: 12/1616 16 Eladio Cason MD, FACC /EPI
== END 2021-10-23 22:50 | disposition home or self-care (01) ==
LOC: ER 16:11 → EROBS 20:29
PROVIDERS: Emergency Medicine
DX: J44.9 Chronic obstructive pulmonary disease, unspecified (principal); Z20.822 Contact with and (suspected) exposure to COVID-19; R09.02 Hypoxemia; I13.0 Hypertensive heart and chronic kidney disease with heart failure and stage 1 through stage 4 chronic kidney disease, or unspecified chronic kidney disease; F17.210 Nicotine dependence, cigarettes, uncomplicated; N18.30 Chronic kidney disease, stage 3 unspecified; I50.9 Heart failure, unspecified; Z88.6 Allergy status to analgesic agent; Z88.5 Allergy status to narcotic agent; Z79.82 Long term (current) use of aspirin; Z79.899 Other long term (current) drug therapy; Z86.73 Personal history of transient ischemic attack (TIA), and cerebral infarction without residual deficits

== ENCOUNTER 2021-10-31 15:26 | Emergency (ER) | payer OTHER ==
[~2021-10-31] VITALS: Ht 152.4 cm; Wt 43.1 kg
--- NOTE | ~2021-10-31 | EMS ---
[address] [address] EMS Patient Care Report Name: BIPIN RICCI Room #: DEP Yony#: [id number] Admission: 10/31/21 Attend Phys: Discharge: 10/31/21 Date of : 52 Report #: [id number] THIS REPORT FOR: //name// Report Transmitted: 11/04/2021 14:54 EMS Care Summary [place], [place]/[facility] Incident [id number] @ 10/31/2021 14:55 Incident Location [address] [place] [address] Patient BIPIN RICCI Female, 71 Years 1950 Patient Address [address] [place], [place] [id number] Patient History Congestive Heart Failure (CHF),Chronic Obstructive Pulmonary Disease (COPD), Patient Allergies Penicillin allergy, Patient Medications Albuterol, Atorvastatin, Famotidine, Carvedilol, Chief Complaint COPD Disposition Transported No Lights/[place] Dispatch Reason Breathing Problem Transported To [facility] Narrative M42 dispatched for a 62 year old female conscious and breathing having breathing problems. Arrival at the scene patient is located inside the [address] [address] EMS Patient Care Report Name: BIPIN RICCI Room #: DEP Yony#: [id number] Admission: 10/31/21 Attend Phys: Discharge: 10/31/21 Date of : 52 Report #: [id number] apartment on the 3rd floor on the couch. Patient is found sitting in the tripod position speaking in 2 to 3 word sentences. Patient is on home Oxygen via NC at 6lpm VS are obtained and lung sounds are auscultated. Diminished lung sounds and audible wheezes are heard. Patient is given a Breathing treatment via Nebulizer and placed on the stair chair and secured using seatbelts. Patient is wheeled downstairs to the ambulance. Patient is moved to the stretcher and placed in the fowlers position using seatbelts and rails. Once inside the ambulance VS are reobtained along with ECG. Patient is noted to be hypertensive. IV access is attempted in the left antecubital region using a 20G IV and is unsuccessful with extravasation noted. Transport is initiated to [facility]. Assessment is conducted. Patient is GCS 15, AAOx4 and marked respiratory distress is still noted with increased effort and retractions. Patient is placed on CPAP at 25LPM with PEEP of 7.5. Patient has a patent airway is and advises that her respiratory feels better with the CPAP. Skin color is pale cool and dry. HEENT are WNL. Pupils are PERRL. Trachea is midline with No JVD noted. Chest wall is stable and intact with symmetrical rise and fall. Lung sounds reveal crackles in the bases with wheezes in the upper lobes. Pelvis is stable and intact with CMSX4 present. Stroke scale conducted is normal. Patient is noted to be hypertensive and stable. Arrival at the receiving facility patient is offloaded and taken to ED room 11. RN is given report signatures are obtained. Transfer of care is completed. M42 returns to service. Initial Vitals @15:16P: 89,BP: 208/87,CO: 0,SpO2: 99, @15:09P: 96,R: 24,BP: 219/102,Pain: 0/10,GCS: 15,CO: 0,SpO2: 99,Revised Trauma: 12, @15:01P: 98,R: 26,BP: 90/62,Pain: 0/10,GCS: 15,CO: 3,SpO2: 100,Revised Trauma: 12, Assessments @15:02MENTAL:No Abnormalities,SKIN:Cyanotic,Pale,Cold,HEENT:Head/Face: No Abnormalities,Eyes: No Abnormalities,Neck/Airway: No Abnormalities,LUNG SOUNDS:General: No Abnormalities,Left Upper: No Abnormalities,Right Upper: No Abnormalities,Left Lower: No Abnormalities,Right Lower: No Abnormalities,ABDOMEN:General: No Abnormalities,Left Upper: No Abnormalities,Right Upper: No Abnormalities,Left Lower: No Abnormalities,Right Lower: No Abnormalities,PELVIS//GI:No Abnormalities,EXTREMITIES:Left Arm: No Abnormalities,Right Arm: No Abnormalities,Left Leg: No Abnormalities,Right Leg: No Abnormalities,PULSE:NEURO:No Abnormalities,@15:20MENTAL:SKIN:HEENT:LUNG SOUNDS:ABDOMEN:PELVIS//GI:EXTREMITIES:PULSE:NEURO: Impression [address] [address] EMS Patient Care Report Name: BIPIN RICCI Room #: DEP JOE Bhakta#: [id number] Admission: 10/31/21 Attend Phys: Discharge: 10/31/21 Date of : 52 Report #: [id number] Chronic Obstructive Pulmonary Disease (COPD) Procedures @PTAOxygen FlowRate: 6 Device: Nasal Cannula (NC) Response: UnchangedSucceeded @15:15 CPAP FlowRate: 25 Response: ImprovedSucceeded @15:02 ALS Assessment Response: UnchangedSucceeded @15:08 IV Therapy - Saline Lock 5cc (20 ga) Site: Antecubital-Left Response: UnchangedFailed @15:05 Albuterol - 2.5 Milligrams (mg) - Nebulized Response: Improved @15:05 Atrovent - 0.5 Milligrams (mg) - Nebulized Response: Improved 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,Oxygen FlowRate: 6 Device: Nasal Cannula (NC) Response: UnchangedSucceeded, 14:54,Call Received 14:54,Dispatch Notified 14:55,Dispatched 14:56,En Route 15:00,On Scene 15:01,At Patient 15:01,BP: 90/62 M,PULSE: 98,RR: 26 R,SPO2: 100 Ox,ETCO2: ,BG: ,PAIN: 0,GCS: 15, 15:02,ALS Assessment,Response: UnchangedSucceeded, 15:05,Albuterol - 2.5 Milligrams (mg) - Nebulized,Response: Improved 15:05,Atrovent - 0.5 Milligrams (mg) - Nebulized,Response: Improved 15:08,IV Therapy - Saline Lock 5cc 20 ga Site: Antecubital-Left,Response: UnchangedFailed, 15:09,BP: 219/102 M,PULSE: 96,RR: 24 R,SPO2: 99 Ox,ETCO2: ,BG: ,PAIN: 0,GCS: 15, 15:11,Depart Scene 15:15,CPAP FlowRate: 25 Response: ImprovedSucceeded, 15:16,BP: 208/87 M,PULSE: 89,RR: R,SPO2: 99 Ox,ETCO2: ,BG: ,PAIN: ,GCS: , 15:21,At Destination 15:35,Call Closed Disclaimer v1.1 Copyright 2020 [employer] This EMS Care Summary contains data elements from the applicable legal record (which may be displayed differently). It is designed to provide pertinent information for the following purposes: continuity of care, clinical quality, and state data reporting. The complete legal record is available to ED staff and administrators of the receiving hospital in [employer] Patient Tracker. All data is provided "as is."
[2021-10-31 15:38] LABS: BE(vivo) -3.9 mmol/L (-2 to +3); HCO3 20.9 mmol/L (22.0-26.0); PCO2 36.4 mmHg (35.0-45.0); PO2 386.9 mmHg (80.0-100.0); pH 7.377 (7.360-7.450); sO2 99.8 % (92.0-98.0)
[2021-10-31 16:33] LABS: CALCIUM 8.7 mg/dL (8.5-10.1); CREATININE 1.2 mg/dL (0.6-1.0); POTASSIUM 4.1 mmol/L (3.5-5.1)
[2021-10-31 18:44] LABS: ABSOLUTE NEUTROPHILS 8.7 thou/uL (1.4-8.2); BASOPHILS 0.6 % (0.0-2.0); EOSINOPHILS 0.4 % (0.0-3.0); HEMATOCRIT 24.4 % (37.0-47.0); HEMOGLOBIN 7.7 gm/dL (12.0-15.0); LYMPHOCYTES 6.9 % (24.0-44.0); MCH 31.7 pg (26.0-34.0); MCHC 31.4 g/dL (28.0-37.0); MCV 101.1 fL (80.0-100.0); MONOCYTES 4.4 % (1.0-8.0); PLATELET COUNT 208 thou/uL (150-400); POLYS 87.7 % (36.0-66.0); RBC 2.41 mil/uL (4.20-5.00); RDW 17.8 % (10.5-14.5); WBC 9.9 thou/uL (4.0-11.0)
[2021-10-31] MEDS ORDERED: DOXYCYCLINE 10100 MG PO (19:55)
[2021-10-31] MEDS ORDERED: AZITHROMYCIN500 MG PO (19:55)
[2021-10-31 20:19] VITALS: BP 198/91
--- NOTE | 2021-11-04 07:12 | EKG ---
[place] [address] [address] [facility] [employer] [facility] [employer] [place] [address] ELECTROCARDIOGRAM REPORT Name: RICCIBIPIN Room #: [facility]#: [id number] Admission: 10/31/21 Attend Phys: Discharge: 10/31/21 Date of : 52 Report #: [id number] 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 : 1950 Requested By: Will Max Order Number: [id number] MD: Eladio Cason Measurements Intervals [place] Rate: 69 P: -68 NC: 86 QRS: -4 QRSD: 87 T: 145 QT: 405 QTc: 434 Interpretive Statements Sinus or ectopic atrial rhythm Short NC interval Borderline repolarization abnormality Compared to ECG 10/23/2021 16:17:49 Ectopic atrial rhythm now present Short NC interval now present Sinus rhythm no longer present Atrial premature complex(es) no longer present Electronically Signed On 11-04-2021 7:12:31 [employer] by Eladio Cason [email or web address] <ELECTRONICALLY SIGNED> By: lEadio Cason MD, [facility] 11/04/21 0712 [id number] Eladio Cason MD, [facility] /EPI
[2021-11-15] MEDS ORDERED: PEPCID20 MG PO (10:25)
[2021-11-15] MEDS ORDERED: LIDOCAINE1 EACH TRANSDERM (10:25)
[2021-11-15] MEDS ORDERED: ARTHRITIS PAIN100 GM TOP (10:25)
[2021-11-15] MEDS ORDERED: HYDRALAZINE 2525 MG PO (10:25)
[2021-11-15] MEDS ORDERED: IRON325 PO (10:25)
[2021-11-18] MEDS ORDERED: ZANAFLEX4 MG PO ×2 (10:50→14:26)
[2021-11-18] MEDS ORDERED: LASIX 20 MG TAB20 MG PO ×2 (10:50→14:26)
[2021-11-18] MEDS ORDERED: B-12500 MCG PO (14:26)
[2021-11-18] MEDS ORDERED: HYDRALAZINE 2525 MG PO (14:26)
[2021-11-18] MEDS ORDERED: IRON325 PO (14:26)
[2021-11-18] MEDS ORDERED: ZINC SULFATE50 M1 PO (14:26)
[2021-11-18] MEDS ORDERED: ARTHRITIS PAIN100 GM TOP (14:26)
[2021-11-18] MEDS ORDERED: PEPCID20 MG PO (14:26)
[2021-11-18] MEDS ORDERED: FOLIC ACID1 MG PO (14:27)
[2021-11-18] MEDS ORDERED: VITAMIN D350 MC3 PO (14:27)
[2021-11-18] MEDS ORDERED: VITAMINC500 PO (14:27)
[2021-11-18] MEDS ORDERED: VITAMIN B-1100 M2 PO (14:27)
[2021-11-18] MEDS ORDERED: TRAMADOL 50 MG50 MG PO (16:29)
== END 2021-10-31 20:40 | disposition home or self-care (01) ==
LOC: ER 15:26
PROVIDERS: Student in an Organized Health Care Education/Training Program
DX: R06.02 Shortness of breath (principal); Z20.822 Contact with and (suspected) exposure to COVID-19; J44.9 Chronic obstructive pulmonary disease, unspecified; I13.0 Hypertensive heart and chronic kidney disease with heart failure and stage 1 through stage 4 chronic kidney disease, or unspecified chronic kidney disease; E11.22 Type 2 diabetes mellitus with diabetic chronic kidney disease; N18.30 Chronic kidney disease, stage 3 unspecified; I50.9 Heart failure, unspecified; F17.210 Nicotine dependence, cigarettes, uncomplicated; Z86.73 Personal history of transient ischemic attack (TIA), and cerebral infarction without residual deficits; Z90.49 Acquired absence of other specified parts of digestive tract; Z90.89 Acquired absence of other organs; Z90.710 Acquired absence of both cervix and uterus; Z79.51 Long term (current) use of inhaled steroids; Z79.899 Other long term (current) drug therapy; Z88.5 Allergy status to narcotic agent; Z88.6 Allergy status to analgesic agent; Z88.8 Allergy status to other drugs, medicaments and biological substances

== ENCOUNTER 2021-11-02 20:15 | Inpatient (IN) | payer OTHER ==
[~2021-11-02] VITALS: Ht 152.4 cm; Wt 43.1 kg
--- NOTE | ~2021-11-02 | EMS ---
[facility] [address] [place] [address] EMS Patient Care Report Name: BIPIN RICCI JEFF Room #: 170-8 ADM IN M.R.#: [id number] Admission: 11/02/21 Attend Phys: Ben Stern MD Discharge: Date of : 52 Report #: [id number] THIS REPORT FOR: //name// Report Transmitted: 11/03/2021 09:36 EMS Care Summary [place], [place]/[facility] Incident [id number] @ 11/02/2021 19:30 Incident Location [id number] [place] [address] Patient BIPIN RICCI Female, 71 Years 1950 Patient Address [address] [place] [address] [address] [place] [address] Patient History Congestive Heart Failure (CHF),Chronic Obstructive Pulmonary Disease (COPD), Patient Allergies Penicillin allergy, Patient Medications Atorvastatin, Albuterol, Famotidine, Carvedilol, Chief Complaint SOA Disposition Transported No Lights/[place] Dispatch Reason Breathing Problem Transported To [facility] Narrative DISPATCHED EMERGENCY ON A BREATHING PROBLEM. PUMPER 42 ON SCENE UPON ARRIVAL. 71 Y/O FEMALE SITTING IN TRIPOD POSITIION ON COUCH APPEARING IN DISTRESS. GCS [facility] [address] [place] [address] EMS Patient Care Report Name: BIPIN RICCI Room #: 170-8 ADM IN Yony#: [id number] Admission: 11/02/21 Attend Phys: Ben Stern MD Discharge: Date of : 52 Report #: [id number] 15 AND ALERT. CONSENT OBTAINED. R/R IS LABORED AND INCREASED. PT SPEAKING IN 1-2 WORD SENTENCES. ALBUTEROL/ATROVENT BEING ADMINISTERED UPON PT CONTACT. UNKNOWN ROOM AIR OXYGEN SATURATION. V/S'S OBTAINED PRIOR TO EMS ARRIVAL. ADVISED THAT PT WAS SEEN IN THE ER 2 DAYS AGO FOR SOA. MOVED WITHOUT INCIDENT VIA STAIRCHAIR DOWN FLIGHTS OF STAIRS TO STRETCHER WHILE NEBULIZER TX IS CONTINUED. MOVED WITHOUT INCIDENT TO AMBULANCE VIA STRETCHER. PLACED ON MONITOR AND V/S'S OBTAINED. B/P IS INCREASED. PT HAS INCREASED WORK OF BREATHING AND IS NO LONGER ABLE TO SPEAK IN 1-2 WORD SENTENCES. CPAP ADMINISTERED AND PT CONTINUED ON OXYGEN. IV ESTABLISHED. TRANSPORTED TO [facility]. REASSESSED ENROUTE. PT REMAINS ALERT. WORK OF BREATHING IMPROVES BUT R/R REMAINS INCREASED AND LABORED. V/S'S CONTINOUSLY MONITORED ENROUTE. REPORT CALLED TO HOSPITAL. MOVED WITHOUT INCIDENT TO ER HOSPITAL BED. PT CARE TRANSFERRED TO ED RN. Initial Vitals @PTAP: 120,R: 30,BP: 240/140,GCS: 15,SpO2: 97,Revised Trauma: 11, @19:55P: 118,R: 28,BP: 241/110,GCS: 15,CO: 2,Revised Trauma: 12, @19:52P: 119,R: 30,BP: 245/105,GCS: 15,Revised Trauma: 11, @20:03P: 118,R: 28,BP: 232/105,GCS: 15,CO: 3,SpO2: 92,Revised Trauma: 12, @19:45P: 122,R: 32,BP: 244/110,Pain: 0/10,GCS: 15,Glucose: 216,CO: 1,SpO2: 95,Revised Trauma: 11, Assessments @19:40MENTAL:Person Oriented,Time Oriented,Place Oriented,Event Oriented,SKIN:HEENT:Head/Face: No Abnormalities,LUNG SOUNDS:ABDOMEN:PELVIS//GI:EXTREMITIES:Capillary Refill: Left Upper: < 2 Sec,Capillary Refill: Right Upper: < 2 Sec,Left Arm: No Abnormalities,Right Arm: No Abnormalities,Left Leg: No Abnormalities,Right Leg: No Abnormalities,PULSE:Radial: 3+ Bounding,NEURO:No Abnormalities,@20:07MENTAL:No Abnormalities,SKIN:HEENT:Head/Face: No Abnormalities,LUNG SOUNDS:ABDOMEN:PELVIS//GI:EXTREMITIES:Capillary Refill: Left Upper: < 2 Sec,Capillary Refill: Right Upper: < 2 Sec,Left Arm: No Abnormalities,Right Arm: No Abnormalities,PULSE:Radial: 2+ Normal,NEURO: Impression Shortness of breath Procedures @PTAAlbuterol - 2.5 Milligrams (mg) - Nebulized Response: Unchanged @PTAAtrovent - 0.5 Milligrams (mg) - Nebulized Response: Unchanged @PTAOxygen FlowRate: 8 Device: Nebulizer Response: UnchangedSucceeded @19:50 IV Therapy - cc (20 ga) Site: Hand-Right Response: UnchangedFailed @19:54 IV Therapy - Saline Lock 10cc (20 ga) Site: Hand-Left Response: UnchangedSucceeded @19:45 3-Lead ECG Response: UnchangedSucceeded @19:40 Stairchair Response: Unchanged [facility] [address] [place] [address] EMS Patient Care Report Name: BIPIN RICCI Room #: 170-8 ADM IN M.R.#: [id number] Admission: 11/02/21 Attend Phys: Ben Stern MD Discharge: Date of : 52 Report #: [id number] @19:43 Stretcher Response: Unchanged @19:39 ALS Assessment Response: UnchangedSucceeded @19:47 CPAP FlowRate: 10 Response: ImprovedSucceeded Timeline CEMENTER 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,Albuterol - 2.5 Milligrams (mg) - Nebulized,Response: Unchanged CEMENTER HAND,Atrovent - 0.5 Milligrams (mg) - Nebulized,Response: Unchanged CEMENTER HAND,Oxygen FlowRate: 8 Device: Nebulizer Response: UnchangedSucceeded, CEMENTER HAND,BP: 240/140 M,PULSE: 120,RR: 30 R,SPO2: 97 Ox,ETCO2: ,BG: ,PAIN: ,GCS: 15, 19:29,Call Received 19:29,Dispatch Notified 19:30,Dispatched 19:31,En Route 19:36,On Scene 19:39,At Patient 19:39,ALS Assessment,Response: UnchangedSucceeded, 19:40,Stairchair,Response: Unchanged 19:43,Stretcher,Response: Unchanged 19:45,3-Lead ECG,Response: UnchangedSucceeded, 19:45,BP: 244/110 M,PULSE: 122,RR: 32 R,SPO2: 95 Ox,ETCO2: ,B,PAIN: 0,GCS: 15, 19:47,CPAP FlowRate: 10 Response: ImprovedSucceeded, 19:50,IV Therapy - cc 20 ga Site: Hand-Right,Response: UnchangedFailed, 19:52,BP: 245/105 M,PULSE: 119,RR: 30 R,SPO2: Ox,ETCO2: ,BG: ,PAIN: ,GCS: 15, 19:54,IV Therapy - Saline Lock 10cc 20 ga Site: Hand-Left,Response: UnchangedSucceeded, 19:55,BP: 241/110 M,PULSE: 118,RR: 28 R,SPO2: Ox,ETCO2: ,BG: ,PAIN: ,GCS: 15, 19:59,Depart Scene 20:03,BP: 232/105 M,PULSE: 118,RR: 28 R,SPO2: 92 Ox,ETCO2: ,BG: ,PAIN: ,GCS: 15, 20:10,At Destination 20:27,Call Closed Disclaimer v1.1 Copyright 2020 [employer] This EMS Care Summary contains data elements from the applicable legal record (which may be displayed differently). It is designed to provide pertinent information for the following purposes: continuity of care, clinical quality, and state data reporting. The complete legal record is available to ED staff and administrators of the receiving hospital in [employer] Patient Tracker. All data is provided "as is."
--- NOTE | ~2021-11-02 | EMS ---
[facility] [address] [place] [address] EMS Patient Care Report Name: BIPIN RICCI JEFF Room #: 170-8 ADM IN M.R.#: [id number] Admission: 11/02/21 Attend Phys: Ben Stern MD Discharge: Date of : 52 Report #: [id number] THIS REPORT FOR: //name// Report Transmitted: 11/03/2021 01:19 EMS Care Summary [place], [place]/[facility] Incident [id number] @ 11/02/2021 19:30 Incident Location [id number] [place] [address] Patient BIPIN RICCI Female, 71 Years 1950 Patient Address [address] [place] [address] [address] [place] [address] Patient History Congestive Heart Failure (CHF),Chronic Obstructive Pulmonary Disease (COPD), Patient Allergies Penicillin allergy, Patient Medications Atorvastatin, Albuterol, Famotidine, Carvedilol, Chief Complaint SOA Disposition Transported No Lights/[place] Dispatch Reason Breathing Problem Transported To [facility] Narrative DISPATCHED EMERGENCY ON A BREATHING PROBLEM. PUMPER 42 ON SCENE UPON ARRIVAL. 71 Y/O FEMALE SITTING IN TRIPOD POSITIION ON COUCH APPEARING IN DISTRESS. GCS [facility] [address] [place] [address] EMS Patient Care Report Name: BIPIN RICCI Room #: 170-8 ADM IN oYny#: [id number] Admission: 11/02/21 Attend Phys: Ben Stern MD Discharge: Date of : 52 Report #: [id number] 15 AND ALERT. CONSENT OBTAINED. R/R IS LABORED AND INCREASED. PT SPEAKING IN 1-2 WORD SENTENCES. ALBUTEROL/ATROVENT BEING ADMINISTERED UPON PT CONTACT. UNKNOWN ROOM AIR OXYGEN SATURATION. V/S'S OBTAINED PRIOR TO EMS ARRIVAL. ADVISED THAT PT WAS SEEN IN THE ER 2 DAYS AGO FOR SOA. MOVED WITHOUT INCIDENT VIA STAIRCHAIR DOWN FLIGHTS OF STAIRS TO STRETCHER WHILE NEBULIZER TX IS CONTINUED. MOVED WITHOUT INCIDENT TO AMBULANCE VIA STRETCHER. PLACED ON MONITOR AND V/S'S OBTAINED. B/P IS INCREASED. PT HAS INCREASED WORK OF BREATHING AND IS NO LONGER ABLE TO SPEAK IN 1-2 WORD SENTENCES. CPAP ADMINISTERED AND PT CONTINUED ON OXYGEN. IV ESTABLISHED. TRANSPORTED TO [facility]. REASSESSED ENROUTE. PT REMAINS ALERT. WORK OF BREATHING IMPROVES BUT R/R REMAINS INCREASED AND LABORED. V/S'S CONTINOUSLY MONITORED ENROUTE. REPORT CALLED TO HOSPITAL. MOVED WITHOUT INCIDENT TO ER HOSPITAL BED. PT CARE TRANSFERRED TO ED RN. Initial Vitals @PTAP: 120,R: 30,BP: 240/140,GCS: 15,SpO2: 97,Revised Trauma: 11, @19:55P: 118,R: 28,BP: 241/110,GCS: 15,CO: 2,Revised Trauma: 12, @19:52P: 119,R: 30,BP: 245/105,GCS: 15,Revised Trauma: 11, @20:03P: 118,R: 28,BP: 232/105,GCS: 15,CO: 3,SpO2: 92,Revised Trauma: 12, @19:45P: 122,R: 32,BP: 244/110,Pain: 0/10,GCS: 15,Glucose: 216,CO: 1,SpO2: 95,Revised Trauma: 11, Assessments @19:40MENTAL:Event Oriented,Place Oriented,Time Oriented,Person Oriented,SKIN:HEENT:Head/Face: No Abnormalities,LUNG SOUNDS:ABDOMEN:PELVIS//GI:EXTREMITIES:Capillary Refill: Left Upper: < 2 Sec,Capillary Refill: Right Upper: < 2 Sec,Left Arm: No Abnormalities,Right Arm: No Abnormalities,Left Leg: No Abnormalities,Right Leg: No Abnormalities,PULSE:Radial: 3+ Bounding,NEURO:No Abnormalities,@20:07MENTAL:No Abnormalities,SKIN:HEENT:Head/Face: No Abnormalities,LUNG SOUNDS:ABDOMEN:PELVIS//GI:EXTREMITIES:Capillary Refill: Right Upper: < 2 Sec,Capillary Refill: Left Upper: < 2 Sec,Left Arm: No Abnormalities,Right Arm: No Abnormalities,PULSE:Radial: 2+ Normal,NEURO: Impression Shortness of breath Procedures @PTAAlbuterol - 2.5 Milligrams (mg) - Nebulized Response: Unchanged @PTAAtrovent - 0.5 Milligrams (mg) - Nebulized Response: Unchanged @PTAOxygen FlowRate: 8 Device: Nebulizer Response: UnchangedSucceeded @19:50 IV Therapy - cc (20 ga) Site: Hand-Right Response: UnchangedFailed @19:54 IV Therapy - Saline Lock 10cc (20 ga) Site: Hand-Left Response: UnchangedSucceeded @19:45 3-Lead ECG Response: UnchangedSucceeded @19:40 Stairchair Response: Unchanged [facility] [address] [place] [address] EMS Patient Care Report Name: BIPIN RICCI Room #: 170-8 ADM IN M.R.#: [id number] Admission: 11/02/21 Attend Phys: Ben Stern MD Discharge: Date of : 52 Report #: [id number] @19:43 Stretcher Response: Unchanged @19:39 ALS Assessment Response: UnchangedSucceeded @19:47 CPAP FlowRate: 10 Response: ImprovedSucceeded 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,Albuterol - 2.5 Milligrams (mg) - Nebulized,Response: Unchanged CUSTOMER SUPPORT SPECIALIST,Atrovent - 0.5 Milligrams (mg) - Nebulized,Response: Unchanged CUSTOMER SUPPORT SPECIALIST,Oxygen FlowRate: 8 Device: Nebulizer Response: UnchangedSucceeded, CUSTOMER SUPPORT SPECIALIST,BP: 240/140 M,PULSE: 120,RR: 30 R,SPO2: 97 Ox,ETCO2: ,BG: ,PAIN: ,GCS: 15, 19:29,Call Received 19:29,Dispatch Notified 19:30,Dispatched 19:31,En Route 19:36,On Scene 19:39,At Patient 19:39,ALS Assessment,Response: UnchangedSucceeded, 19:40,Stairchair,Response: Unchanged 19:43,Stretcher,Response: Unchanged 19:45,3-Lead ECG,Response: UnchangedSucceeded, 19:45,BP: 244/110 M,PULSE: 122,RR: 32 R,SPO2: 95 Ox,ETCO2: ,B,PAIN: 0,GCS: 15, 19:47,CPAP FlowRate: 10 Response: ImprovedSucceeded, 19:50,IV Therapy - cc 20 ga Site: Hand-Right,Response: UnchangedFailed, 19:52,BP: 245/105 M,PULSE: 119,RR: 30 R,SPO2: Ox,ETCO2: ,BG: ,PAIN: ,GCS: 15, 19:54,IV Therapy - Saline Lock 10cc 20 ga Site: Hand-Left,Response: UnchangedSucceeded, 19:55,BP: 241/110 M,PULSE: 118,RR: 28 R,SPO2: Ox,ETCO2: ,BG: ,PAIN: ,GCS: 15, 19:59,Depart Scene 20:03,BP: 232/105 M,PULSE: 118,RR: 28 R,SPO2: 92 Ox,ETCO2: ,BG: ,PAIN: ,GCS: 15, 20:10,At Destination 20:27,Call Closed Disclaimer v1.1 Copyright 2020 [employer] This EMS Care Summary contains data elements from the applicable legal record (which may be displayed differently). It is designed to provide pertinent information for the following purposes: continuity of care, clinical quality, and state data reporting. The complete legal record is available to ED staff and administrators of the receiving hospital in [employer]'s Patient Tracker. All data is provided "as is."
--- NOTE | ~2021-11-02 | EMS ---
[facility] [address] [place] [address] EMS Patient Care Report Name: RICCIBIPIN JEFF Room #: 211-P ADM IN M.R.#: [id number] Admission: 11/02/21 Attend Phys: Gurinder Bolaños Discharge: Date of : 52 Report #: [id number] THIS REPORT FOR: //name// Report Transmitted: 11/04/2021 15:40 EMS Care Summary [place], [place]/[facility] Incident [id number] @ 11/02/2021 19:30 Incident Location [id number] [place] [address] Patient BIPIN RICCI Female, 71 Years 1950 Patient Address [address] [place] [address] [address] [place] [address] Patient History Congestive Heart Failure (CHF),Chronic Obstructive Pulmonary Disease (COPD), Patient Allergies Penicillin allergy, Patient Medications Atorvastatin, Albuterol, Famotidine, Carvedilol, Chief Complaint SOA Disposition Transported No Lights/Riddle Dispatch Reason Breathing Problem Transported To [facility] Narrative DISPATCHED EMERGENCY ON A BREATHING PROBLEM. PUMPER 42 ON SCENE UPON ARRIVAL. 71 Y/O FEMALE SITTING IN TRIPOD POSITIION ON COUCH APPEARING IN DISTRESS. [facility] [address] [place] [address] EMS Patient Care Report Name: BIPIN RICCI Room #: 211-P ADM IN [place].#: [id number] Admission: 11/02/21 Attend Phys: Gurinder Roth Eveeliane Discharge: Date of : 52 Report #: [id number] 15 AND ALERT. CONSENT OBTAINED. R/R IS LABORED AND INCREASED. PT SPEAKING IN 1-2 WORD SENTENCES. ALBUTEROL/ATROVENT BEING ADMINISTERED UPON PT CONTACT. UNKNOWN ROOM AIR OXYGEN SATURATION. V/S'S OBTAINED PRIOR TO EMS ARRIVAL. ADVISED THAT PT WAS SEEN IN THE ER 2 DAYS AGO FOR SOA. MOVED WITHOUT INCIDENT VIA STAIRCHAIR DOWN FLIGHTS OF STAIRS TO STRETCHER WHILE NEBULIZER TX IS CONTINUED. MOVED WITHOUT INCIDENT TO AMBULANCE VIA STRETCHER. PLACED ON MONITOR AND V/S'S OBTAINED. B/P IS INCREASED. PT HAS INCREASED WORK OF BREATHING AND IS NO LONGER ABLE TO SPEAK IN 1-2 WORD SENTENCES. CPAP ADMINISTERED AND PT CONTINUED ON OXYGEN. IV ESTABLISHED. TRANSPORTED TO [facility]. REASSESSED ENROUTE. PT REMAINS ALERT. WORK OF BREATHING IMPROVES BUT R/R REMAINS INCREASED AND LABORED. V/S'S CONTINOUSLY MONITORED ENROUTE. REPORT CALLED TO HOSPITAL. MOVED WITHOUT INCIDENT TO ER HOSPITAL BED. PT CARE TRANSFERRED TO ED RN. Initial Vitals @PTAP: 120,R: 30,BP: 240/140,GCS: 15,SpO2: 97,Revised Trauma: 11, @19:55P: 118,R: 28,BP: 241/110,GCS: 15,CO: 2,Revised Trauma: 12, @19:52P: 119,R: 30,BP: 245/105,GCS: 15,Revised Trauma: 11, @20:03P: 118,R: 28,BP: 232/105,GCS: 15,CO: 3,SpO2: 92,Revised Trauma: 12, @19:45P: 122,R: 32,BP: 244/110,Pain: 0/10,GCS: 15,Glucose: 216,CO: 1,SpO2: 95,Revised Trauma: 11, Assessments @19:40MENTAL:Person Oriented,Time Oriented,Place Oriented,Event Oriented,SKIN:HEENT:Head/Face: No Abnormalities,LUNG SOUNDS:ABDOMEN:PELVIS//GI:EXTREMITIES:Capillary Refill: Left Upper: < 2 Sec,Capillary Refill: Right Upper: < 2 Sec,Left Arm: No Abnormalities,Right Arm: No Abnormalities,Left Leg: No Abnormalities,Right Leg: No Abnormalities,PULSE:Radial: 3+ Bounding,NEURO:No Abnormalities,@20:07MENTAL:No Abnormalities,SKIN:HEENT:Head/Face: No Abnormalities,LUNG SOUNDS:ABDOMEN:PELVIS//GI:EXTREMITIES:Capillary Refill: Left Upper: < 2 Sec,Capillary Refill: Right Upper: < 2 Sec,Left Arm: No Abnormalities,Right Arm: No Abnormalities,PULSE:Radial: 2+ Normal,NEURO: Impression Shortness of breath Procedures @PTAAlbuterol - 2.5 Milligrams (mg) - Nebulized Response: Unchanged @PTAAtrovent - 0.5 Milligrams (mg) - Nebulized Response: Unchanged @PTAOxygen FlowRate: 8 Device: Nebulizer Response: UnchangedSucceeded @19:50 IV Therapy - cc (20 ga) Site: Hand-Right Response: UnchangedFailed @19:54 IV Therapy - Saline Lock 10cc (20 ga) Site: Hand-Left Response: UnchangedSucceeded @19:45 3-Lead ECG Response: UnchangedSucceeded @19:40 Stairchair Response: Unchanged 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,Albuterol - 2.5 Milligrams (mg) - Nebulized,Response: Unchanged BOWLING BALL [employer]ADER [employer] MARKER,Atrovent - 0.5 Milligrams (mg) - Nebulized,Response: Unchanged BOWLING [employer]ALL [employer]ER [employer] MARKER,Oxygen FlowRate: 8 Device: Nebulizer Response: UnchangedSucceeded, BOWLING BALL GRADER [employer] MARKER,BP: 240/140 M,PULSE: 120,RR: 30 R,SPO2: 97 Ox,ETCO2: ,BG: ,PAIN: ,GCS: 15, 19:29,Call Received 19:29,Dispatch Notified 19:30,Dispatched 19:31,En Route 19:36,On Scene 19:39,At Patient 19:39,ALS Assessment,Response: UnchangedSucceeded, 19:40,Stairchair,Response: Unchanged 19:43,Stretcher,Response: Unchanged 19:45,3-Lead ECG,Response: UnchangedSucceeded, 19:45,BP: 244/110 M,PULSE: 122,RR: 32 R,SPO2: 95 Ox,ETCO2: ,B,PAIN: 0,GCS: 15, 19:47,CPAP FlowRate: 10 Response: ImprovedSucceeded, 19:50,IV Therapy - cc 20 ga Site: Hand-Right,Response: UnchangedFailed, 19:52,BP: 245/105 M,PULSE: 119,RR: 30 R,SPO2: Ox,ETCO2: ,BG: ,PAIN: ,GCS: 15, 19:54,IV Therapy - Saline Lock 10cc 20 ga Site: Hand-Left,Response: UnchangedSucceeded, 19:55,BP: 241/110 M,PULSE: 118,RR: 28 R,SPO2: Ox,ETCO2: ,BG: ,PAIN: ,GCS: 15, 19:59,Depart Scene 20:03,BP: 232/105 M,PULSE: 118,RR: 28 R,SPO2: 92 Ox,ETCO2: ,BG: ,PAIN: ,GCS: 15, 20:10,At Destination 20:27,Call Closed Disclaimer v1.1 Copyright 2020 [employer] This EMS Care Summary contains data elements from the applicable legal record (which may be displayed differently). It is designed to provide pertinent information for the following purposes: continuity of care, clinical quality, and state data reporting. The complete legal record is available to ED staff and administrators of the receiving hospital in [employer]'s Patient Tracker. All data is provided "as is."
[~2021-11-02 20:15] MED LIST changes: +AZITHROMYCIN500 MG PO
[2021-11-02 20:16] VITALS: BP 220/107
[2021-11-02 20:33] LABS: BE(vivo) -6.5 mmol/L (-2 to +3); HCO3 20.8 mmol/L (22.0-26.0); PCO2 51.2 mmHg (35.0-45.0); PO2 159.6 mmHg (80.0-100.0); sO2 98.7 % (92.0-98.0)
[2021-11-02 20:34] LABS: pH 7.226 (7.360-7.450)
[2021-11-02 20:34] LABS: ABSOLUTE NEUTROPHILS 10.1 thou/uL (1.4-8.2); BASOPHILS 0.9 % (0.0-2.0); EOSINOPHILS 0.4 % (0.0-3.0); HEMATOCRIT 24.3 % (37.0-47.0); HEMOGLOBIN 7.7 gm/dL (12.0-15.0); LYMPHOCYTES 16.4 % (24.0-44.0); MCH 32.3 pg (26.0-34.0); MCHC 31.6 g/dL (28.0-37.0); MONOCYTES 4.2 % (1.0-8.0); PLATELET COUNT 214 thou/uL (150-400); POLYS 78.1 % (36.0-66.0); RBC 2.38 mil/uL (4.20-5.00); RDW 17.7 % (10.5-14.5)
[2021-11-02 20:40] LABS: CALCIUM 8.2 mg/dL (8.5-10.1); CREATININE 1.4 mg/dL (0.6-1.0); POTASSIUM 4.4 mmol/L (3.5-5.1)
[2021-11-02 20:49] LABS: ALBUMIN 2.6 g/dL (3.4-5.0); TOTAL BILIRUBIN 0.2 mg/dL (0.2-1.0); TOTAL PROTEIN 6.5 g/dL (6.4-8.2)
[2021-11-03 03:09] VITALS: BP 196/85
[2021-11-03 05:09] LABS: HEMOGLOBIN 6.7 gm/dL (12.0-15.0); WBC 8.9 thou/uL (4.0-11.0)
[2021-11-03 05:10] LABS: HEMATOCRIT 20.2 % (37.0-47.0); MCH 33.1 pg (26.0-34.0); MCHC 33.1 g/dL (28.0-37.0); MCV 99.9 fL (80.0-100.0); RBC 2.02 mil/uL (4.20-5.00); RDW 17.3 % (10.5-14.5)
[2021-11-03 05:19] LABS: CALCIUM 8.1 mg/dL (8.5-10.1); CREATININE 1.3 mg/dL (0.6-1.0); POTASSIUM 3.7 mmol/L (3.5-5.1)
[2021-11-03 09:31] VITALS: BP 200/98
[2021-11-03 13:19] VITALS: BP 213/101
[2021-11-03 15:27] VITALS: BP 150/74
--- NOTE | 2021-11-03 16:38 | NUR ---
PATIENT ASSESMENTS CHARTED. PATIENT RECIEVING A UNIT OF BLOOD FOR LOW HEMOGLOBIN.
[2021-11-03 21:29] VITALS: BP 153/70
[2021-11-03 22:20] LABS: HEMATOCRIT 22.8 % (37.0-47.0); HEMOGLOBIN 7.6 gm/dL (12.0-15.0)
[2021-11-04 00:52] VITALS: BP 129/49
--- NOTE | 2021-11-04 04:04 | NUR ---
ASSUMED PT CARE AT CHANGE OF SHIFT, ALERT AND ORIENTED, ABLE TO MAKE NEEDS KNOWN, SA/SR ON TELE, TYL GIVEN FOR BACK PAIN WITH RELIEF, REMAINS ON 2L OF O2 VIA NASAL CANULA, 02SATS STABLE IN THE UPPER 90S, UP TO THEB/S COMMODEX1 ASSIST, BLOOD TRANSFUSION STOPPED BEFORE SHIFT CHANGE D/T LOSE OF AN IV ACCESS, IV TO THE RFA INITIATED AT AROUND 0, BLOOD BANK INFORMED, BLOOD ISPOSED SINCE IT WAS MORE THAN 4 HRS AFTER IT WAS STARTED, WHOLESALE LOAN PROCESSOR NOTIFIED, ORDERS FOR STAT H&H OBTAINED, HGB 7.6 AND HCT 22.8, NO ORDERS RECEIVED, PT SLEEPING WITH NO COMPLAINS AT THIS TIME, WILL CONTINUE TO MONITOR
[2021-11-04 05:20] LABS: HEMATOCRIT 22.8 % (37.0-47.0); HEMOGLOBIN 7.7 gm/dL (12.0-15.0); MCH 32.6 pg (26.0-34.0); MCHC 33.7 g/dL (28.0-37.0); MCV 96.8 fL (80.0-100.0); RBC 2.35 mil/uL (4.20-5.00); RDW 17.5 % (10.5-14.5); WBC 6.7 thou/uL (4.0-11.0)
[2021-11-04 05:27] VITALS: BP 145/58
[2021-11-04 05:34] LABS: ALBUMIN 2.3 g/dL (3.4-5.0); CALCIUM 8.2 mg/dL (8.5-10.1); CREATININE 1.3 mg/dL (0.6-1.0); MAGNESIUM 1.6 mg/dL (1.8-2.4); POTASSIUM 3.2 mmol/L (3.5-5.1); TOTAL BILIRUBIN 0.3 mg/dL (0.2-1.0); TOTAL PROTEIN 5.8 g/dL (6.4-8.2)
[2021-11-04 07:00] VITALS: BP 138/78
--- NOTE | 2021-11-04 07:20 | EKG ---
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: amanuel : 1950 Requested By: Marci Fry Order Number: [id number] MD: Eladio Cason Measurements Intervals [place] Rate: 87 P: 40 MS: 119 QRS: -12 QRSD: 85 T: 104 QT: 383 QTc: 461 Interpretive Statements Sinus rhythm Borderline short MS interval LVH with secondary repolarization abnormality Compared to ECG 10/31/2021 16:53:32 Left ventricular hypertrophy now present Ectopic atrial rhythm no longer present Electronically Signed On 11-04-2021 7:20:12 [employer] by Eladio Cason [email or web address] <ELECTRONICALLY SIGNED> By: Eladio Cason MD, [facility] 11/04/21 0720 23 23 Eladio Cason MD, [facility] /EPI
[2021-11-04 11:00] VITALS: BP 128/64
[2021-11-04 15:00] VITALS: BP 124/55
--- NOTE | 2021-11-04 16:25 | NUR ---
PATIENT ADMITTED FOR SHORTNESS OF BREATH. CHART REVIEWED AND DISCUSSED WITH CARE TEAM. CM MET WITH PT THIS DAY. PATIENT DISCHARGED FROM [facility] ON 10-22 TO [facility]. SHE STAYED ONE DAY AND WAS NOT HAPPY REPORTING THE STAFF WAS RUDE. SHE THEN LIVED WITH A FRIEND NATIVIDAD MERLOS. PT REPORTS SHE IS UP WITH NO ASST DEVICE. SHE REPORTS DOING HER OWN BATHING DRESSING AND GROOMING. SHE IS ON OXYGEN AT HOME THROUGH [employer]. PT REPORTS ONCE MEDICALLY STABLE TO DC SHE WILL GO BACK TO HER FRIENDS HOUSE [place]IVID[place] MERLOS. CM FOLLOWING FOR DC NEEDS.
[2021-11-04 20:15] VITALS: BP 130/67
[2021-11-05 01:00] LABS: ABSOLUTE NEUTROPHILS 8.8 thou/uL (1.4-8.2); HEMATOCRIT 21.7 % (37.0-47.0); HEMOGLOBIN 7.3 gm/dL (12.0-15.0); LYMPHOCYTES 2.9 % (24.0-44.0); MCH 32.3 pg (26.0-34.0); MCHC 33.6 g/dL (28.0-37.0); MCV 96.4 fL (80.0-100.0); MONOCYTES 2.4 % (1.0-8.0); PLATELET COUNT 146 thou/uL (150-400); POLYS 94.7 % (36.0-66.0); RBC 2.25 mil/uL (4.20-5.00); RDW 17.3 % (10.5-14.5); WBC 9.3 thou/uL (4.0-11.0)
--- NOTE | 2021-11-05 04:29 | NUR ---
ASSUMED PT CARE AT 1900, SR, C/O CHRONIC BACK PAIN, TYL GIVEN WITH RELIEF, ASSESSMENTS CHARTED, MEDS GIVEN PER JAN, REMAINS ON 2L OF O2, O2 SATS STABLE, VSS, NO NEEDS AT THIS TIME, WILL CONTINUE TO MONITOR
[2021-11-05 04:44] VITALS: BP 131/60
[2021-11-05 06:58] LABS: MAGNESIUM 2.3 mg/dL (1.8-2.4)
[2021-11-05 07:00] VITALS: BP 129/67
[2021-11-05 07:07] LABS: POTASSIUM 4.2 mmol/L (3.5-5.1)
[2021-11-05 11:00] VITALS: BP 127/55
--- NOTE | 2021-11-05 12:02 | NUR ---
[facility] ACCEPTED PT FOR REHAB SERVICES. PT IS AGREEABLE AND OKAY TO TRANSFER ONCE MEDICALLY STABLE. CM WILL CONTINUE TO FOLLOW.
[2021-11-05] MEDS ORDERED: LEVOFLOXACIN500 MG PO (13:09)
--- NOTE | 2021-11-05 13:40 | NUR ---
PT MEDICALLY STABLE TO DC TO [facility] RE[facility]AB TODAY. THIS CM SPOKE TO PT AND SHE IS AWARE. SHE REPORTED SHE NOTIFIED HER FAMILY AND WILL CALL THEM BACK WITH THE ROOM NUMBER. NO FURTHER CM INTERVENTIONS AT THIS TIME.
[2021-11-05 15:00] VITALS: BP 145/71
--- NOTE | 2021-11-05 16:54 | NUR ---
PATIENT DISCHARGED TO [facility]. REPORT GIVEN. IV REMOVED. PATIENT HAD NO QUESITONS AT THIS TIME.
[2021-11-15] MEDS ORDERED: IRON325 PO (10:25)
[2021-11-15] MEDS ORDERED: PEPCID20 MG PO (10:25)
[2021-11-15] MEDS ORDERED: ARTHRITIS PAIN100 GM TOP (10:25)
[2021-11-15] MEDS ORDERED: LIDOCAINE1 EACH TRANSDERM (10:25)
[2021-11-15] MEDS ORDERED: HYDRALAZINE 2525 MG PO (10:25)
[2021-11-18] MEDS ORDERED: ZANAFLEX4 MG PO ×2 (10:50→14:26)
[2021-11-18] MEDS ORDERED: LASIX 20 MG TAB20 MG PO ×2 (10:50→14:26)
[2021-11-18] MEDS ORDERED: IRON325 PO (14:26)
[2021-11-18] MEDS ORDERED: PEPCID20 MG PO (14:26)
[2021-11-18] MEDS ORDERED: B-12500 MCG PO (14:26)
[2021-11-18] MEDS ORDERED: HYDRALAZINE 2525 MG PO (14:26)
[2021-11-18] MEDS ORDERED: ARTHRITIS PAIN100 GM TOP (14:26)
[2021-11-18] MEDS ORDERED: ZINC SULFATE50 M1 PO (14:26)
[2021-11-18] MEDS ORDERED: VITAMINC500 PO (14:27)
[2021-11-18] MEDS ORDERED: FOLIC ACID1 MG PO (14:27)
[2021-11-18] MEDS ORDERED: VITAMIN D350 MC3 PO (14:27)
[2021-11-18] MEDS ORDERED: VITAMIN B-1100 M2 PO (14:27)
[2021-11-18] MEDS ORDERED: TRAMADOL 50 MG50 MG PO (16:29)
== END 2021-11-05 16:54 | DRG 871 ==
LOC: ER 20:15 → EROBS 22:34 → 2N 22:34
PROVIDERS: Emergency Medicine; Nurse Practitioner Family; ADMIT Hospitalist; ATTEND Hospitalist
PROC: 30233N1 Transfusion of Nonautologous Red Blood Cells into Peripheral Vein, Percutaneous Approach (ICD-10-PCS; principal; 2021-11-03)
DX: A41.9 Sepsis, unspecified organism (principal); J18.9 Pneumonia, unspecified organism; J96.21 Acute and chronic respiratory failure with hypoxia; I50.31 Acute diastolic (congestive) heart failure; I16.1 Hypertensive emergency; I13.0 Hypertensive heart and chronic kidney disease with heart failure and stage 1 through stage 4 chronic kidney disease, or unspecified chronic kidney disease; J44.0 Chronic obstructive pulmonary disease with (acute) lower respiratory infection; Z20.822 Contact with and (suspected) exposure to COVID-19; N18.30 Chronic kidney disease, stage 3 unspecified; E78.5 Hyperlipidemia, unspecified; F17.210 Nicotine dependence, cigarettes, uncomplicated; K25.9 Gastric ulcer, unspecified as acute or chronic, without hemorrhage or perforation; R53.81 Other malaise; Z86.73 Personal history of transient ischemic attack (TIA), and cerebral infarction without residual deficits; Z90.49 Acquired absence of other specified parts of digestive tract; Z90.710 Acquired absence of both cervix and uterus; Z85.89 Personal history of malignant neoplasm of other organs and systems; Z86.19 Personal history of other infectious and parasitic diseases; Z88.6 Allergy status to analgesic agent; Z88.8 Allergy status to other drugs, medicaments and biological substances; Z82.49 Family history of ischemic heart disease and other diseases of the circulatory system; Z83.6 Family history of other diseases of the respiratory system; Z71.6 Tobacco abuse counseling; Z28.21 Immunization not carried out because of patient refusal
CPT/HCPCS: 10081